=== PATIENT | female | born 1990 | race Caucasian/White ===

== ENCOUNTER 2016-11-13 00:47 | Emergency (ER) | payer OTHER ==
[2016-11-13] MEDS ORDERED: Pepcid 20 MG VIAL IV ONE ×2 (01:02→01:17)
[2016-11-13] MEDS ORDERED: Sodium Chloride 0.9% 1000 ML 1,000 ML IV STA (01:02)
[2016-11-13] MEDS ORDERED: Zofran 4 MG/2 ML VIAL IV ONE (01:02)
[2016-11-13] MEDS ORDERED: Zofran 4 MG/2 ML VIAL ONE (01:16)
[2016-11-13] MEDS ORDERED: Sodium Chloride 0.9% 1000 ML 1,000 ML ONE (01:17)
[2016-11-13 01:21] LABS: BASOPHIL % 0.3 % (0.0-0.4); Eosinophil % 1.8 % (0.00-5.0); Granulocytes % 55.5 % (36.0-66.0); Lymphocytes % 33.1 % (24.0-44.0); Mean Corpuscular Hemoglobin 31.6 pg (26-32); Mean Platelet Volume 11.3 fl (6-9.5); Monocytes % 9.3 % (0.0-12.0); Platelet Count 216 K/mm3 (150-450); Red Blood Count 4.14 M/mm3 (4.1-5.4); White Blood Count 7.2 K/mm3 (4.0-10.5)
[2016-11-13 01:34] LABS: Collection Type CLEAN CATCH
[2016-11-13 01:35] LABS: Bacteria MODERATE /HPF (NEGATIVE); COMPLETE URINE MICROSCOPIC? YES; Epithelial Cells MANY /HPF (FEW); Mucus SLIGHT /HPF (NEGATIVE); Ph 5.5 (5-6)
--- NOTE | 2016-11-13 01:39 | ERPHSYRPT ---
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 Sts nausea. Denies diarrhea. Denies sick contacts. Sts 6 weeks , . LMP 10/05/16. OB: Dr. Janes Amos. Denies bleeding, cramping, vaginal discharge. Denies urinary symptoms. Sts pain is across top of abd, worst in epigastrium. Pt rates pain 9/10. Triage Nursing Assessment: Pt alert, oriented, answers all questions appropriately. Skin p/w/d, resps non-labored. Pt ambulatory to tx room, steady gait noted. Pt holding abd. Mucous membranes moist. Physician History: 26 year old 6 weekpreg now with pain and vomiting, no bleeding or disacharge; abd is tender in epigastrium only; Timing/Duration: today, sudden Activities at Onset: none Quality: sharpness, stabbing Abdominal Pain Onset Location: epigastric Pain Radiation: no radiation Severity of Pain-Max: moderate Severity of Pain-Current: moderate Modifying Factors: Improves With: nothing Associated Symptoms: nausea Previous symptoms: no prior history Allergies/Adverse Reactions: No Known Drug Allergies Allergy (Verified 11/13/16 00:57) Hx Tetanus, Diphtheria Vaccination/Date Given: Yes Hx Influenza Vaccination/Date Given: Yes Hx Pneumococcal Vaccination/Date Given: No - Review of Systems Constitutional: No Fever, No Chills Eyes: No Symptoms Ears, Nose, & Throat: No Symptoms Respiratory: No Cough, No Dyspnea Cardiac: No Chest Pain, No Edema, No Syncope Abdominal/Gastrointestinal: Abdominal Pain, Nausea, Vomiting, No Diarrhea Genitourinary Symptoms: No Dysuria Musculoskeletal: Back Pain, No Neck Pain Skin: No Rash Neurological: No Dizziness, No Focal Weakness, No Sensory Changes Psychological: No Symptoms Endocrine: No Symptoms All Other Systems: Reviewed and Negative - Past Medical History Pertinent Past Medical History: No Neurological History: No Pertinent History ENT History: No Pertinent History Cardiac History: No Pertinent History Respiratory History: No Pertinent History Endocrine Medical History: No Pertinent History Musculoskeletal History: No Pertinent History GI Medical History: No Pertinent History History: No Pertinent History Psycho-Social History: No Pertinent History Female Reproductive Disorders: No Pertinent History Other Medical History: MONO - Past Surgical History Past Surgical History: No Neuro Surgical History: No Pertinent History Cardiac: No Pertinent History Respiratory: No Pertinent History Gastrointestinal: No Pertinent History Genitourinary: No Pertinent History Musculoskeletal: No Pertinent History Female Surgical History: No Pertinent History - Social History Smoking Status: Never smoker Exposure to second hand smoke: No Drug Use: none Patient Lives Alone: No - Female History Hx Last Menstrual Period: 10/05/16 Hx Now: Yes - Nursing Vital Signs Nursing Vital Signs: Initial Vital Signs Temperature 98.6 F Temperature Source Oral Pulse Rate 83 Respiratory Rate 16 Blood Pressure 117/67 Pain Intensity 9 - Physical Exam General Appearance: mild distress, alert Eye Exam: PERRL/EOMI, eyes nml inspection Ears, Nose, Throat Exam: normal ENT inspection, pharynx normal, moist mucous membranes Neck Exam: normal inspection, non-tender, supple, full range of motion Respiratory Exam: normal breath sounds, lungs clear, No respiratory distress Cardiovascular Exam: regular rate/rhythm, normal heart sounds Gastrointestinal/Abdomen Exam: soft, tenderness, No mass Pelvic Exam: deferred Rectal Exam: deferred Back Exam: normal inspection, normal range of motion, No CVA tenderness, No vertebral tenderness Extremity Exam: normal inspection, normal range of motion, pelvis stable Neurologic Exam: alert, oriented x 3, cooperative, normal mood/affect, nml cerebellar function, sensation nml, No motor deficits Skin Exam: normal color, warm, dry SpO2 Interpretation: normal SpO2: 97 Oxygen Delivery: Room Air - Course Nursing assessment & vital signs reviewed: Yes - Radiology Ultrasound Exam OB Ultrasound: negative, IUP, Other (no free fluid, normal kidneys and GB no sign of pathology) Ordered Tests: Active Orders 24 hr Category Date Time Status Clean Catch Urine Specimen STAT Care 11/13/16 01:02 Active IV Insertion STAT Care 11/13/16 01:02 Active NPO (ED) STAT Care 11/13/16 01:02 Active OB TRANSVAGINAL [US] Stat Exams 11/13/16 01:04 Taken UPPER ABDOMEN [US] Stat Exams 11/13/16 01:04 Taken AMYLASE Stat Lab 11/13/16 01:15 Completed CBC W DIFF Stat Lab 11/13/16 01:15 Completed CMP Stat Lab 11/13/16 01:15 Completed HCG, Quantitative (Inhouse) Stat Lab 11/13/16 01:15 Completed LIPASE Stat Lab 11/13/16 01:15 Completed Lactic Acid Urgent Lab 11/13/16 01:12 Completed UA W/ MICROSCOPIC Stat Lab 11/13/16 01:15 Completed Medication Summary Discontinued Medications Generic Name Dose Route Start Last Admin Trade Name Warren PRN Reason Stop Dose Admin Famotidine 20 mg 11/13/16 01:02 11/13/16 01:18 Pepcid 20 Mg Vial IV 11/13/16 01:03 20 mg STAT ONE Administration Famotidine Confirm 11/13/16 01:17 Pepcid 20 Mg Vial Administered 11/13/16 01:18 Dose 20 mg IV .STK-MED ONE Sodium Chloride 1,000 mls @ 999 mls/hr 11/13/16 01:02 11/13/16 01:18 Sodium Chloride 0.9% 1000 Ml IV 11/13/16 02:02 999 mls/hr .Q1H1M STA Administration Sodium Chloride Confirm 11/13/16 01:17 Sodium Chloride 0.9% 1000 Ml Administered 11/13/16 01:18 Dose 1,000 mls @ ud .ROUTE .STK-MED ONE Ceftriaxone Sodium/Dextrose 50 mls @ 100 mls/hr 11/13/16 01:43 11/13/16 01:52 Rocephin 1 Gm-D5w 50 Ml Bag IV 11/13/16 02:12 100 mls/hr STAT ONE Administration Ceftriaxone Sodium/Dextrose Confirm 11/13/16 01:49 Rocephin 1 Gm-D5w 50 Ml Bag Administered 11/13/16 01:50 Dose 50 mls @ ud IV .STK-MED ONE Ondansetron HCl 4 mg 11/13/16 01:02 11/13/16 01:18 Zofran 4 Mg/2 Ml Vial IV 11/13/16 01:03 4 mg STAT ONE Administration Ondansetron HCl Confirm 11/13/16 01:16 Zofran 4 Mg/2 Ml Vial Administered 11/13/16 01:17 Dose 4 mg .ROUTE .STK-MED ONE Lab/Rad Data: Laboratory Result Diagrams 11/13/16 01:15 11/13/16 01:15 Laboratory Results 11/13/16 11/13/16 11/13/16 Range/Units 01:15 01:15 01:15 WBC 7.2 (4.0-10.5) K/mm3 RBC 4.14 (4.1-5.4) M/mm3 Hgb 13.1 (12.0-16.0) gm/dl Hct 38.5 (35-47) % MCV 93.0 (78-100) fl MCH 31.6 (26-32) pg MCHC 34.0 (32-36) g/dl RDW 12.0 (11.5-14.0) % Plt Count 216 (150-450) K/mm3 MPV 11.3 H (6-9.5) fl Gran % 55.5 (36.0-66.0) % Lymphocytes % 33.1 (24.0-44.0) % Monocytes % 9.3 (0.0-12.0) % Eosinophils % 1.8 (0.00-5.0) % Basophils % 0.3 (0.0-0.4) % Basophils # 0.02 (0-0.4) Sodium 139 (136-145) mEq/L Potassium 4.0 (3.5-5.1) mEq/L Chloride 103 (98-107) mEq/L Carbon Dioxide 23.9 (21-32) mEq/L Anion Gap 15.6 H (5-15) MEQ/L BUN 12 (9-20) mg/dL Creatinine 0.60 (0.55-1.30) mg/dl Estimated GFR > 60 ML/MIN Glucose 89 (70-110) MG/DL Lactic Acid (0.4-2.0) Calcium 8.5 (8.5-10.1) mg/dL Total Bilirubin 0.2 (0.2-1.0) mg/dL AST 21 (15-37) U/L ALT 15 (12-78) U/L Alkaline Phosphatase 65 (46-116) U/L Serum Total Protein 6.6 (6.4-8.2) gm/dL Albumin 3.6 (3.4-5.0) g/dL Amylase 52 (25-115) U/L Lipase 246 (73-393) U/L Beta HCG, Quant 31248 H (0-6) IU/L Ur Collection Type CLEAN CATCH Urine Color YELLOW (YELLOW) Urine Appearance SLIGHTLY CLOUDY (CLEAR) Urine pH 5.5 (5-6) Ur Specific [place] 1.025 (1.005-1.025) Urine Protein NEGATIVE (Negative) Urine Glucose (UA) NEGATIVE (NEGATIVE) mg/dL Urine Ketones NEGATIVE (NEGATIVE) Urine Nitrite NEGATIVE (NEGATIVE) Urine Bilirubin NEGATIVE (NEGATIVE) Urine Urobilinogen 0.2 (0-1) mg/dL Urine WBC (Auto) TRACE (NEGATIVE) Urine RBC (Auto) NEGATIVE (0-5) Dennis/ul Urine Microscopic RBC 2-5 (0-2) /HPF Urine Microscopic WBC 5-10 (0-5) /HPF Ur Epithelial Cells MANY (FEW) /HPF Urine Bacteria MODERATE (NEGATIVE) /HPF Urine Mucus SLIGHT (NEGATIVE) /HPF Specimen Received 11/13/16 0110 11/13/16 Range/Units 01:12 WBC (4.0-10.5) K/mm3 RBC (4.1-5.4) M/mm3 Hgb (12.0-16.0) gm/dl Hct (35-47) % MCV (78-100) fl MCH (26-32) pg MCHC (32-36) g/dl RDW (11.5-14.0) % Plt Count (150-450) K/mm3 MPV (6-9.5) fl Gran % (36.0-66.0) % Lymphocytes % (24.0-44.0) % Monocytes % (0.0-12.0) % Eosinophils % (0.00-5.0) % Basophils % (0.0-0.4) % Basophils # (0-0.4) Sodium (136-145) mEq/L Potassium (3.5-5.1) mEq/L Chloride (98-107) mEq/L Carbon Dioxide (21-32) mEq/L Anion Gap (5-15) MEQ/L BUN (9-20) mg/dL Creatinine (0.55-1.30) mg/dl Estimated GFR ML/MIN Glucose (70-110) MG/DL Lactic Acid 0.8 (0.4-2.0) Calcium (8.5-10.1) mg/dL Total Bilirubin (0.2-1.0) mg/dL AST (15-37) U/L ALT (12-78) U/L Alkaline Phosphatase (46-116) U/L Serum Total Protein (6.4-8.2) gm/dL Albumin (3.4-5.0) g/dL Amylase (25-115) U/L Lipase (73-393) U/L Beta HCG, Quant (0-6) IU/L Ur Collection Type Urine Color (YELLOW) Urine Appearance (CLEAR) Urine pH (5-6) Ur Specific [place] (1.005-1.025) Urine Protein (Negative) Urine Glucose (UA) (NEGATIVE) mg/dL Urine Ketones (NEGATIVE) Urine Nitrite (NEGATIVE) Urine Bilirubin (NEGATIVE) Urine Urobilinogen (0-1) mg/dL Urine WBC (Auto) (NEGATIVE) Urine RBC (Auto) (0-5) Dennis/ul Urine Microscopic RBC (0-2) /HPF Urine Microscopic WBC (0-5) /HPF Ur Epithelial Cells (FEW) /HPF Urine Bacteria (NEGATIVE) /HPF Urine Mucus (NEGATIVE) /HPF Specimen Received - Progress Progress: improved, re-examined Progress Note: 11/13/16 03:05 pt pain has improved and now she feels comfortable to go home and f/u OB; discussede limitations of testing performed and that we do not know for certain that dyspepsia and preg emesis are the cause of symptoms but the evidence points to these. SHe will F/U OB and return meantime if symptoms return. 11/13/16 03:07 discussed risk/benefit of zantac and pepcid , keflex and antinausea med and she is comfortable with these. Counseled pt/family regarding: lab results, diagnosis, need for follow-up, rad results - Departure Time of Disposition: 03:07 Departure Disposition: Home Clinical Impression: Hyperemesis gravidarum, dyspepsia in , UTI (urinary tract infection) during Condition: Good Critical Care Time: No Referrals: CHRISTIAN PACE [Primary Care Provider] - Instructions: Hyperemesis Gravidarum, Abdominal Pain-Adult, Urinary Tract Infection (UTI), Dyspepsia Additional Instructions: ALthough we have not found the precise cause for your pain and vomiting, the symptoms and findings do point to dyspesia and vomiting of which are common causes. In addition there is a urinary infection which should be treated. You can take either OTC Pepcid or Zantac also and we will give you a nausea medication used in . You should see your OB this week since undetected problems may be evolving and require workup or treatment, and return meantime if symptoms recur or other concerns. Prescriptions: Cephalexin Mh 500 mg [Keflex 500 mg] 500 mg PO TID #30 capsule Doxylamine/Pyridoxine HCl [Addi Escoto 10-10 mg Tablet] 2 each PO HS #30 tablet.
[2016-11-13] MEDS ORDERED: ROCEPHIN 1 Gm-D5w 50 ml Bag** 50 ML IV ONE ×2 (01:43→01:49)
[2016-11-13 02:03] LABS: ALBUMIN 3.6 g/dL (3.4-5.0); ALKALINE PHOSPHATASE 65 U/L (46-116); ANION GAP 15.6 MEQ/L (5-15); BILIRUBIN,TOTAL 0.2 mg/dL (0.2-1.0); BLOOD UREA NITROGEN 12 mg/dL (9-20); CHLORIDE 103 mEq/L (98-107); Carbon Dioxide 23.9 mEq/L (21-32); Glucose 89 MG/DL (70-110); HCG, Quantitative (Inhouse) 27410 IU/L (0-6); LIPASE 246 U/L (73-393); SGOT/AST 21 U/L (15-37); SGPT/ALT 15 U/L (12-78); SODIUM 139 mEq/L (136-145); Total Protein 6.6 gm/dL (6.4-8.2)
[2016-11-13 03:47] VITALS: BP 111/68; PULSE 88; O2SAT 96
--- NOTE | 2016-11-13 09:18 | XRAY ---
Indication: Pain. Two-dimensional transvaginal pelvic sonogram performed. Comparison: None Uterus is retroverted with a single intrauterine gestational sac. Mean sac diameter is 1.23 cm corresponding to 5 weeks 2 days. Yolk sac present but no pole or heart tones. Left ovary measures 3.4 x 2.4 x 3.1 cm and the left measures 1.7 x 1.2 x 2.5 cm. Normal color perfusion bilaterally. 1.7 cm right ovary corpus luteal cyst. No suspicious adnexal mass or free fluid. Impression: Single intrauterine gestational sac without pole/heart tones measuring 5 weeks 2 days. Correlate with serial beta hCG and follow-up sonogram regarding viability. Comment: Preliminary report was given.
--- NOTE | 2016-11-13 09:21 | XRAY ---
Indication: Pain. Two-dimensional abdominal sonogram performed. Comparison: None Visualized portions of the liver, pancreas, and spleen homogeneous in echogenicity. Gallbladder normally distended without gallstones, wall thickening, or pericholecystic fluid. Common bile duct measures 3 mm. No ascites. Right kidney measures 10.9 x 3.8 x 4.0 cm and the left measures 11.9 x 3.9 x 4.7 cm. No suspicious renal mass, hydronephrosis, or perinephric fluid. Aorta and IVC unremarkable. Impression: Negative abdominal sonogram. Comment: Preliminary report was given.
== END 2016-11-13 03:48 | disposition home or self-care (01) ==
LOC: ED 00:47
DX: O21.0 Mild hyperemesis gravidarum (principal); R10.13 Epigastric pain; R39.9 Unspecified symptoms and signs involving the genitourinary system
CPT/HCPCS: 36000; 36415; 76700; 76815; 76817; 80053; 81000; 82150; 83605; 83690; 84702; 85025; 96360; 96365; 96374; 96375; 99283; J0696; J2405

== ENCOUNTER 2017-03-31 14:25 | Observation (INO) | payer OTHER ==
[2017-03-31 15:08] VITALS: BP 110/68; PULSE 86
[2017-03-31 15:18] LABS: Collection Type VOID
[2017-03-31 15:19] LABS: COMPLETE URINE MICROSCOPIC? YES
[2017-03-31 15:32] LABS: Bacteria MANY /HPF (NEGATIVE); Epithelial Cells MANY /HPF (FEW)
== END 2017-03-31 16:25 | disposition home or self-care (01) ==
LOC: OB 14:25
PROVIDERS: ADMIT Family Medicine; ATTEND Family Medicine
DX: Z34.83 Encounter for supervision of other normal pregnancy, third trimester (principal)
CPT/HCPCS: 80307; 81000; G0378

== ENCOUNTER 2017-05-15 10:14 | Observation (INO) | payer OTHER ==
--- NOTE | 2017-05-15 13:25 | XRAY ---
Indication: well-being. Ultrasound biophysical profile study was performed. Comparison: None There is a single viable intrauterine with heart rate 129 bpm. 4 quadrant DIANA is 16.1 cm. Largest amniotic pocket is 6 cm. 2 points given for breathing, movements, tone, and qualitative amniotic fluid volume. Impression: Total biophysical profile score is 8 out of 8.
[2017-05-15 14:49] VITALS: BP 114/75; PULSE 92; O2SAT 97
== END 2017-05-15 14:05 | disposition home or self-care (01) ==
LOC: OB 10:14
PROVIDERS: ADMIT Family Medicine; ATTEND Family Medicine
DX: Z34.83 Encounter for supervision of other normal pregnancy, third trimester (principal)
CPT/HCPCS: 59025; 76819; 80307; G0378

== ENCOUNTER 2017-09-17 01:41 | Emergency (ER) | payer OTHER ==
[2017-09-17] MEDS ORDERED: Phenergan 25 MG INJ IV ONE (01:55)
[2017-09-17] MEDS ORDERED: Sodium Chloride 0.9% 1000 ML 1,000 ML IV STA (01:55)
[2017-09-17] MEDS ORDERED: ROCEPHIN 1 Gm-D5w 50 ml Bag** 1 G/50 ML IVPB IV STA (01:56)
[2017-09-17] MEDS ORDERED: Sodium Chloride 0.9% 1000 ML 1,000 ML ONE (02:02)
[2017-09-17] MEDS ORDERED: Phenergan 25 MG INJ ONE (02:02)
[2017-09-17] MEDS ORDERED: ROCEPHIN 1 Gm-D5w 50 ml Bag** 1 G/50 ML IVPB IV ONE (02:02)
--- NOTE | 2017-09-17 02:02 | ERPHSYRPT ---
- History of Present Illness Time Seen by Provider: 09/17/17 01:45 Historian: patient Exam Limitations: no limitations Physician History: FOR THE PAST 9 DAYS PT HAS HAD NAUSEA AND FELT TIRED. PT VOMITED X5 9 DAYS AGO WITHOUT BLOOD. FOR THE PAST 3 DAYS HAS HAD VOMITING X10, DIARRHEA X6, DIAPHORESIS, CHILLS AND A SORE THROAT; FOR THE PAST 2 DAYS HEADACHE AND EARACHES. Allergies/Adverse Reactions: No Known Drug Allergies Allergy (Verified 05/15/17 10:48) Home Medications: Vits W-Ca,Fe,FA(<1Mg) [] 1 tab PO DAILY 03/31/17 [History] Hx Tetanus, Diphtheria Vaccination/Date Given: Yes Hx Influenza Vaccination/Date Given: Yes Hx Pneumococcal Vaccination/Date Given: No - Review of Systems Constitutional: Fatigue Ears, Nose, & Throat: Ear Pain, Throat Pain Abdominal/Gastrointestinal: Nausea, Vomiting, Diarrhea Neurological: Headache All Other Systems: Reviewed and Negative - Past Medical History Pertinent Past Medical History: No Neurological History: No Pertinent History ENT History: No Pertinent History Cardiac History: No Pertinent History Respiratory History: No Pertinent History Endocrine Medical History: No Pertinent History Musculoskeletal History: No Pertinent History GI Medical History: No Pertinent History History: No Pertinent History Psycho-Social History: No Pertinent History Female Reproductive Disorders: No Pertinent History Other Medical History: MONO - Past Surgical History Past Surgical History: No Neuro Surgical History: No Pertinent History Cardiac: No Pertinent History Respiratory: No Pertinent History Gastrointestinal: No Pertinent History Genitourinary: No Pertinent History Musculoskeletal: No Pertinent History Female Surgical History: No Pertinent History - Social History Smoking Status: Never smoker Exposure to second hand smoke: No Drug Use: none Patient Lives Alone: No - Female History Hx Now: Yes - Nursing Vital Signs Nursing Vital Signs: Initial Vital Signs Temperature 97.6 F 09/17/17 01:47 Pulse Rate 94 H 09/17/17 01:47 Blood Pressure 134/82 09/17/17 01:47 O2 Sat by Pulse Oximetry 94 L 09/17/17 01:47 Pain Scale Pain Intensity 0 - Physical Exam General Appearance: alert Eye Exam: PERRL/EOMI Ears, Nose, Throat Exam: moist mucous membranes, TM abnormal (L) (LEFT TM ERYTHEMATOUS), pharyngeal erythema Neck Exam: normal inspection Respiratory Exam: lungs clear Cardiovascular Exam: normal heart sounds Gastrointestinal/Abdomen Exam: soft, other (B.S. MILDLY HYPERACTIVE AND NORMOTONIC) Back Exam: normal range of motion Extremity Exam: normal inspection, No pedal edema Neurologic Exam: alert, cooperative, normal mood/affect Skin Exam: warm, dry - Course Nursing assessment & vital signs reviewed: Yes Ordered Tests: Active Orders 24 hr Category Date Time Status IV Insertion STAT Care 09/17/17 01:55 Active AMYLASE Stat Lab 09/17/17 02:00 Completed CBC W DIFF Stat Lab 09/17/17 02:00 Completed CMP Stat Lab 09/17/17 02:00 Completed CULTURE, THROAT Stat Lab 09/17/17 02:30 Received LIPASE Stat Lab 09/17/17 02:00 Completed MAG [MAGNESIUM] Stat Lab 09/17/17 02:00 Completed [place] Screen Stat Lab 09/17/17 02:00 Completed STREP SCREEN-BETA A Stat Lab 09/17/17 02:30 Completed UA W/ MICROSCOPIC Stat Lab 09/17/17 02:00 Completed Medication Summary Discontinued Medications Generic Name Dose Route Start Last Admin Trade Name Freq PRN Reason Stop Dose Admin Ceftriaxone Sodium/Dextrose 1 g in 50 mls @ 100 mls/hr 09/17/17 01:56 02:21 Rocephin 1 Gm-D5w 50 Ml Bag IV 09/17/17 02:25 100 mls/hr STAT STA Administration Sodium Chloride 1,000 mls @ 999 mls/hr 09/17/17 01:55 09/17/17 02:21 Sodium Chloride 0.9% 1000 Ml IV 09/17/17 02:55 999 mls/hr .Q1H1M STA Administration Sodium Chloride Confirm 09/17/17 02:02 Sodium Chloride 0.9% 1000 Ml Administered 09/17/17 02:03 Dose 1,000 mls @ ud .ROUTE .STK-MED ONE Ceftriaxone Sodium/Dextrose Confirm 09/17/17 02:02 Rocephin 1 Gm-D5w 50 Ml Bag Administered 09/17/17 02:03 Dose 1 g in 50 mls @ ud IV .STK-MED ONE Magnesium Sulfate/Dextrose 100 mls @ 200 mls/hr 09/17/17 03:08 09/17/17 03:13 Magnesium 1 Gm / 100 Ml D5w IV 09/17/17 03:37 200 mls/hr STAT ONE Administration Magnesium Sulfate/Dextrose Confirm 09/17/17 03:10 Magnesium 1 Gm / 100 Ml D5w Administered 09/17/17 03:11 Dose 100 mls @ ud IV .STK-MED ONE Promethazine HCl 12.5 mg 09/17/17 01:55 09/17/17 02:21 Phenergan 25 Mg Inj IV 09/17/17 01:56 12.5 mg STAT ONE Administration Promethazine HCl Confirm 09/17/17 02:02 Phenergan 25 Mg Inj Administered 09/17/17 02:03 Dose 25 mg .ROUTE .STK-MED ONE Lab/Rad Data: Laboratory Result Diagrams 09/17/17 02:00 09/17/17 02:00 Laboratory Results 09/17/17 09/17/17 09/17/17 Range/Units 02:30 02:30 02:00 WBC (4.0-10.5) K/mm3 RBC (4.1-5.4) M/mm3 Hgb (12.0-16.0) gm/dl Hct (35-47) % MCV (78-100) fl MCH (26-32) pg MCHC (32-36) g/dl RDW (11.5-14.0) % Plt Count (150-450) K/mm3 MPV (6-9.5) fl Gran % (36.0-66.0) % Lymphocytes % (24.0-44.0) % Monocytes % (0.0-12.0) % Eosinophils % (0.00-5.0) % Basophils % (0.0-0.4) % Basophils # (0-0.4) Sodium (136-145) mEq/L Potassium (3.5-5.1) mEq/L Chloride (98-107) mEq/L Carbon Dioxide (21-32) mEq/L Anion Gap (5-15) MEQ/L BUN (9-20) mg/dL Creatinine (0.55-1.30) mg/dl Estimated GFR ML/MIN Glucose (70-110) MG/DL Calcium (8.5-10.1) mg/dL Magnesium (1.8-2.4) mg/dL Total Bilirubin (0.2-1.0) mg/dL AST (15-37) U/L ALT (12-78) U/L Alkaline Phosphatase (46-116) U/L Serum Total Protein (6.4-8.2) gm/dL Albumin (3.4-5.0) g/dL Amylase (25-115) U/L Lipase (73-393) U/L Ur Collection Type Urine Color (YELLOW) Urine Appearance (CLEAR) Urine pH (5-6) Ur Specific [place] (1.005-1.025) Urine Protein (Negative) Urine Ketones (NEGATIVE) Urine Blood (0-5) Dennis/ul Urine Nitrite (NEGATIVE) Urine Bilirubin (NEGATIVE) Urine Urobilinogen (0-1) mg/dL Ur Leukocyte Esterase (NEGATIVE) Urine Microscopic WBC (0-5) /HPF Ur Epithelial Cells (FEW) /HPF Urine Bacteria (NEGATIVE) /HPF Urine Culture Reflexed (NO) Urine Glucose (NEGATIVE) mg/dL Monoscreen NEGATIVE (Negative) Influenza Type A Ag NEGATIVE (NEGATIVE) Influenza Type B Ag NEGATIVE (NEGATIVE) RSV (PCR) NEGATIVE (Negative) Streptococcus Screen NEGATIVE (Negative) Specimen Received 09/17/17 09/17/17 09/17/17 Range/Units 02:00 02:00 02:00 WBC 9.3 (4.0-10.5) K/mm3 RBC 4.23 (4.1-5.4) M/mm3 Hgb 13.1 (12.0-16.0) gm/dl Hct 39.9 (35-47) % MCV 94.3 (78-100) fl MCH 31.0 (26-32) pg MCHC 32.8 (32-36) g/dl RDW 12.4 (11.5-14.0) % Plt Count 196 (150-450) K/mm3 MPV 11.3 H (6-9.5) fl Gran % 79.7 H (36.0-66.0) % Lymphocytes % 12.5 L (24.0-44.0) % Monocytes % 6.5 (0.0-12.0) % Eosinophils % 1.1 (0.00-5.0) % Basophils % 0.2 (0.0-0.4) % Basophils # 0.02 (0-0.4) Sodium 142 (136-145) mEq/L Potassium 3.5 (3.5-5.1) mEq/L Chloride 106 (98-107) mEq/L Carbon Dioxide 25.8 (21-32) mEq/L Anion Gap 13.9 (5-15) MEQ/L BUN 16 (9-20) mg/dL Creatinine 0.96 (0.55-1.30) mg/dl Estimated GFR > 60 ML/MIN Glucose 101 (70-110) MG/DL Calcium 8.8 (8.5-10.1) mg/dL Magnesium 1.7 L (1.8-2.4) mg/dL Total Bilirubin 0.30 (0.2-1.0) mg/dL AST 75 H (15-37) U/L ALT 139 H (12-78) U/L Alkaline Phosphatase 96 (46-116) U/L Serum Total Protein 7.3 (6.4-8.2) gm/dL Albumin 3.8 (3.4-5.0) g/dL Amylase 52 (25-115) U/L Lipase 229 (73-393) U/L Ur Collection Type CLEAN CATCH Urine Color YELLOW (YELLOW) Urine Appearance CLEAR (CLEAR) Urine pH 6.0 (5-6) Ur Specific [place] 1.020 (1.005-1.025) Urine Protein NEGATIVE (Negative) Urine Ketones NEGATIVE (NEGATIVE) Urine Blood NEGATIVE (0-5) Dennis/ul Urine Nitrite NEGATIVE (NEGATIVE) Urine Bilirubin NEGATIVE (NEGATIVE) Urine Urobilinogen NORMAL (0-1) mg/dL Ur Leukocyte Esterase 1+ (NEGATIVE) Urine Microscopic WBC 0-2 (0-5) /HPF Ur Epithelial Cells FEW (FEW) /HPF Urine Bacteria RARE (NEGATIVE) /HPF Urine Culture Reflexed NO (NO) Urine Glucose NEGATIVE (NEGATIVE) mg/dL Monoscreen (Negative) Influenza Type A Ag (NEGATIVE) Influenza Type B Ag (NEGATIVE) RSV (PCR) (Negative) Streptococcus Screen (Negative) Specimen Received 09/17/17 0200 - Departure Time of Disposition: 03:46 Departure Disposition: Home Clinical Impression: LOM, PHARYNGITIS, VOMITING, DIARRHEA, MILD HYPOMAGNESEMIA Condition: Stable Critical Care Time: No Referrals: REYMUNDO JONES [Primary Care Provider] - Instructions: Diarrhea and Traveler's Diarrhea -- Adult, Vomiting -- Adult Additional Instructions: FOLLOW UP WITH PRIVATE DOCTOR TOMORROW. CONTINUE KEFLEX. Prescriptions: Promethazine HCl 25 mg [Phenergan 25 mg] 25 mg PO Q4H PRN PRN #14 tablet PRN Reason: Nausea/Vomiting
[2017-09-17 02:25] LABS: BASOPHIL % 0.2 % (0.0-0.4); Eosinophil % 1.1 % (0.00-5.0); Granulocytes % 79.7 % (36.0-66.0); Lymphocytes % 12.5 % (24.0-44.0); Mean Cell Volume 94.3 fl (78-100); Mean Platelet Volume 11.3 fl (6-9.5); Monocytes % 6.5 % (0.0-12.0); Platelet Count 196 K/mm3 (150-450); Red Blood Count 4.23 M/mm3 (4.1-5.4); Red Cell Distribution Width 12.4 % (11.5-14.0); White Blood Count 9.3 K/mm3 (4.0-10.5)
[2017-09-17 02:50] LABS: ALBUMIN 3.8 g/dL (3.4-5.0); ALKALINE PHOSPHATASE 96 U/L (46-116); ANION GAP 13.9 MEQ/L (5-15); BLOOD UREA NITROGEN 16 mg/dL (9-20); CHLORIDE 106 mEq/L (98-107); Carbon Dioxide 25.8 mEq/L (21-32); Glucose 101 MG/DL (70-110); LIPASE 229 U/L (73-393); MAGNESIUM 1.7 mg/dL (1.8-2.4); Potassium 3.5 mEq/L (3.5-5.1); SGOT/AST 75 U/L (15-37); SGPT/ALT 139 U/L (12-78); SODIUM 142 mEq/L (136-145); Total Protein 7.3 gm/dL (6.4-8.2)
[2017-09-17 03:03] LABS: ADD URINE CULTURE? NO (NO); Bacteria RARE /HPF (NEGATIVE); Bilirubin NEGATIVE (NEGATIVE); Blood NEGATIVE Ery/ul (0-5); COMPLETE URINE MICROSCOPIC? YES; Collection Type CLEAN CATCH; Epithelial Cells FEW /HPF (FEW); Glucose NEGATIVE (NEGATIVE); Leukocyte Esterase 1+ (NEGATIVE); WBC 0-2 /HPF (0-5)
[2017-09-17] MEDS ORDERED: Magnesium 1 Gm / 100 Ml D5W*** 100 ML IV ONE ×2 (03:08→03:10)
[2017-09-17 03:54] VITALS: BP 111/68; PULSE 84; O2SAT 99
== END 2017-09-17 03:58 | disposition home or self-care (01) ==
LOC: ED 01:41
DX: H66.92 Otitis media, unspecified, left ear (principal); J02.9 Acute pharyngitis, unspecified; R11.2 Nausea with vomiting, unspecified; R11.10 Vomiting, unspecified; R19.7 Diarrhea, unspecified; E83.42 Hypomagnesemia
CPT/HCPCS: 36000; 36415; 80053; 81000; 82150; 83690; 83735; 85025; 86308; 87070; 87430; 87631; 96360; 96365; 96367; 96374; 99284; J0696; J2550; J3475

== ENCOUNTER 2018-06-07 14:38 | Emergency (ER) | payer BC ==
[2018-06-07 15:28] VITALS: BP 131/86; PULSE 96; O2SAT 97
--- NOTE | 2018-06-07 15:50 | ERPHSYRPT ---
- History of Present Illness Time Seen by Provider: 06/07/18 15:44 Historian: patient Exam Limitations: no limitations Patient Subjective Stated Complaint: 5 weeks , spotting and lower abd cramping for four days. Triage Nursing Assessment: ambulated to room per self. skin w/d, color normal, resp easy. abd soft. Physician History: The patient is a 28-year-old female at 5 weeks complaining of pelvic cramping for 4 days and mild vaginal bleeding for one day. Her last missed her period was May 04. She has been taking vitamins but has not seen an OB doctor yet. She called her previous OB doctor who requested that she be seen in the nearest ER because they could not work her in today. She is taking vitamins. She denies nausea or vomiting. Timing/Duration: day(s) (4), gradual onset Activities at Onset: none Quality: cramping Abdominal Pain Onset Location: RLQ, LLQ Pain Radiation: no radiation Severity of Pain-Max: mild Severity of Pain-Current: mild Modifying Factors: Improves With: nothing Associated Symptoms: other (vaginal bleeding) Previous symptoms: no prior history Allergies/Adverse Reactions: No Known Drug Allergies Allergy (Verified 06/07/18 15:28) Home Medications: Vits W-Ca,Fe,FA(<1Mg) [] 1 tab PO DAILY 03/31/17 [History] Hx Tetanus, Diphtheria Vaccination/Date Given: No Hx Influenza Vaccination/Date Given: No Hx Pneumococcal Vaccination/Date Given: No - Review of Systems Constitutional: No Fever, No Chills Eyes: No Symptoms Ears, Nose, & Throat: No Symptoms Respiratory: No Cough, No Dyspnea Cardiac: No Chest Pain, No Edema, No Syncope Abdominal/Gastrointestinal: Other (pelvic cramping) Genitourinary Symptoms: Vaginal Bleeding Musculoskeletal: No Back Pain, No Neck Pain Skin: No Rash Neurological: No Dizziness, No Focal Weakness, No Sensory Changes Psychological: No Symptoms Endocrine: No Symptoms Hematologic/Lymphatic: No Symptoms Immunological/Allergic: No Symptoms All Other Systems: Reviewed and Negative - Past Medical History Pertinent Past Medical History: No Neurological History: No Pertinent History ENT History: No Pertinent History Cardiac History: No Pertinent History Respiratory History: No Pertinent History Endocrine Medical History: No Pertinent History Musculoskeletal History: No Pertinent History GI Medical History: No Pertinent History History: No Pertinent History Psycho-Social History: No Pertinent History Female Reproductive Disorders: No Pertinent History Other Medical History: MONO - Past Surgical History Past Surgical History: No Neuro Surgical History: No Pertinent History Cardiac: No Pertinent History Respiratory: No Pertinent History Gastrointestinal: No Pertinent History Genitourinary: No Pertinent History Musculoskeletal: No Pertinent History Female Surgical History: No Pertinent History - Social History Smoking Status: Never smoker Exposure to second hand smoke: No Drug Use: none Patient Lives Alone: No - Female History Hx Last Menstrual Period: 05/04/18 Hx Now: Yes (5 weeks) - Nursing Vital Signs Nursing Vital Signs: Initial Vital Signs Temperature 98.8 F 06/07/18 15:01 Pulse Rate 96 H 06/07/18 15:01 Respiratory Rate 16 06/07/18 15:01 Blood Pressure 131/86 06/07/18 15:01 O2 Sat by Pulse Oximetry 97 06/07/18 15:01 Pain Scale Pain Intensity 7 - Physical Exam General Appearance: no apparent distress, alert Eye Exam: PERRL/EOMI, eyes nml inspection Ears, Nose, Throat Exam: normal ENT inspection, pharynx normal, moist mucous membranes Neck Exam: normal inspection, non-tender, supple, full range of motion Respiratory Exam: normal breath sounds, lungs clear, No respiratory distress Cardiovascular Exam: regular rate/rhythm, normal heart sounds Gastrointestinal/Abdomen Exam: tenderness (RLQ), No guarding Pelvic Exam: not done Rectal Exam: not done Back Exam: normal inspection, normal range of motion, No CVA tenderness, No vertebral tenderness Extremity Exam: normal inspection, normal range of motion, pelvis stable Neurologic Exam: alert, oriented x 3, cooperative, normal mood/affect, nml cerebellar function, sensation nml, No motor deficits Skin Exam: normal color, warm, dry SpO2 Interpretation: normal SpO2: 97 Oxygen Delivery: Room Air - Radiology Ultrasound Exam OB Ultrasound: discussed w/radiologist (per U/S tech), Other (tiny intrauterine gestational sac) Ordered Tests: Active Orders 24 hr Category Date Time Status Clean Catch Urine Specimen STAT Care 06/07/18 15:44 Active OB <14 WKS 1ST GESTATION [US] Stat Exams 06/07/18 15:45 Completed BMP Stat Lab 06/07/18 16:00 Completed CBC W DIFF Stat Lab 06/07/18 16:00 Completed HCG, Quantitative (Inhouse) Stat Lab 06/07/18 16:00 Completed UA W/ MICROSCOPIC Stat Lab 06/07/18 15:30 Completed Lab/Rad Data: Laboratory Result Diagrams 06/07/18 16:00 06/07/18 16:00 Laboratory Results 06/07/18 06/07/18 06/07/18 Range/Units 16:00 16:00 16:00 WBC 6.2 (4.0-10.5) K/mm3 RBC 4.30 (4.1-5.4) M/mm3 Hgb 14.3 (12.0-16.0) gm/dl Hct 41.3 (35-47) % MCV 96.0 (78-100) fl MCH 33.3 H (26-32) pg MCHC 34.6 (32-36) g/dl RDW 11.9 (11.5-14.0) % Plt Count 215 (150-450) K/mm3 MPV 11.2 H (6-9.5) fl Gran % 59.1 (36.0-66.0) % Eos # (Auto) 0.12 (0-0.5) Absolute Lymphs (auto) 1.86 (1.0-4.6) Absolute Monos (auto) 0.55 (0.0-1.3) Lymphocytes % 29.9 (24.0-44.0) % Monocytes % 8.8 (0.0-12.0) % Eosinophils % 1.9 (0.00-5.0) % Basophils % 0.3 (0.0-0.4) % Absolute Granulocytes 3.67 (1.4-6.9) Basophils # 0.02 (0-0.4) Sodium 141 (137-145) mmol/L Potassium 3.9 (3.5-5.1) mmol/L Chloride 104 (98-107) mmol/L Carbon Dioxide 26 (22-30) mmol/L Anion Gap 15.1 H (5-15) MEQ/L BUN 13 (7-17) mg/dL Creatinine 0.60 (0.52-1.04) mg/dL Estimated GFR > 60.0 ML/MIN Glucose 80 (74-106) mg/dL Calcium 9.7 (8.4-10.2) mg/dL Beta HCG, Quant 2207.2 mIU/ml Ur Collection Type Urine Color (YELLOW) Urine Appearance (CLEAR) Urine pH (5-6) Ur Specific [place] (1.005-1.025) Urine Protein (Negative) Urine Ketones (NEGATIVE) Urine Blood (0-5) Dennis/ul Urine Nitrite (NEGATIVE) Urine Bilirubin (NEGATIVE) Urine Urobilinogen (0-1) mg/dL Ur Leukocyte Esterase (NEGATIVE) Urine Microscopic WBC (0-5) /HPF Ur Epithelial Cells (FEW) /HPF Urine Bacteria (NEGATIVE) /HPF Urine Culture Reflexed (NO) Urine Glucose (NEGATIVE) mg/dL Specimen Received 06/07/18 Range/Units 15:30 WBC (4.0-10.5) K/mm3 RBC (4.1-5.4) M/mm3 Hgb (12.0-16.0) gm/dl Hct (35-47) % MCV (78-100) fl MCH (26-32) pg MCHC (32-36) g/dl RDW (11.5-14.0) % Plt Count (150-450) K/mm3 MPV (6-9.5) fl Gran % (36.0-66.0) % Eos # (Auto) (0-0.5) Absolute Lymphs (auto) (1.0-4.6) Absolute Monos (auto) (0.0-1.3) Lymphocytes % (24.0-44.0) % Monocytes % (0.0-12.0) % Eosinophils % (0.00-5.0) % Basophils % (0.0-0.4) % Absolute Granulocytes (1.4-6.9) Basophils # (0-0.4) Sodium (137-145) mmol/L Potassium (3.5-5.1) mmol/L Chloride (98-107) mmol/L Carbon Dioxide (22-30) mmol/L Anion Gap (5-15) MEQ/L BUN (7-17) mg/dL Creatinine (0.52-1.04) mg/dL Estimated GFR ML/MIN Glucose (74-106) mg/dL Calcium (8.4-10.2) mg/dL Beta HCG, Quant mIU/ml Ur Collection Type CCMS Urine Color YELLOW (YELLOW) Urine Appearance CLEAR (CLEAR) Urine pH 6.0 (5-6) Ur Specific [place] 1.015 (1.005-1.025) Urine Protein NEGATIVE (Negative) Urine Ketones NEGATIVE (NEGATIVE) Urine Blood NEGATIVE (0-5) Dennis/ul Urine Nitrite NEGATIVE (NEGATIVE) Urine Bilirubin NEGATIVE (NEGATIVE) Urine Urobilinogen NORMAL (0-1) mg/dL Ur Leukocyte Esterase TRACE (NEGATIVE) Urine Microscopic WBC 2-5 (0-5) /HPF Ur Epithelial Cells MODERATE (FEW) /HPF Urine Bacteria RARE (NEGATIVE) /HPF Urine Culture Reflexed NO (NO) Urine Glucose NEGATIVE (NEGATIVE) mg/dL Specimen Received 06-07-18 1600 - Progress Progress: unchanged Counseled pt/family regarding: lab results, diagnosis, rad results - Departure Time of Disposition: 16:26 Departure Disposition: Home Clinical Impression: Threatened spontaneous Condition: Stable Critical Care Time: No Referrals: REYMUNDO JONES [Primary Care Provider] - Additional Instructions: You have mild pelvic cramping and mild vaginal bleeding. The ultrasound shows a gestational sac within the uterus. Please take Tylenol as needed for discomfort. The quantitative HCG was 2207. Follow-up with your OB doctor later this week or early next week.
[2018-06-07 16:03] LABS: BASOPHIL % 0.3 % (0.0-0.4); Basophil (Absolute #) 0.02 (0-0.4); Eosinophil % 1.9 % (0.00-5.0); Eosinophil (Absolute #) 0.12 (0-0.5); Granulocyte Absolute (ANC) 3.67 (1.4-6.9); Granulocytes % 59.1 % (36.0-66.0); Hematocrit 41.3 % (35-47); Hemoglobin 14.3 gm/dl (12.0-16.0); Lymphocyte (Absolute #) 1.86 (1.0-4.6); Lymphocytes % 29.9 % (24.0-44.0); Mean Corpuscular Hemoglobin 33.3 pg (26-32); Mean Corpuscular Hgb Concent. 34.6 g/dl (32-36); Mean Platelet Volume 11.2 fl (6-9.5); Monocyte (Absolute #) 0.55 (0.0-1.3); Monocytes % 8.8 % (0.0-12.0); Platelet Count 215 K/mm3 (150-450); Red Cell Distribution Width 11.9 % (11.5-14.0); White Blood Count 6.2 K/mm3 (4.0-10.5)
[2018-06-07 16:12] LABS: Appearance CLEAR (CLEAR); Bacteria RARE /HPF (NEGATIVE); Bilirubin NEGATIVE (NEGATIVE); Blood NEGATIVE Ery/ul (0-5); Epithelial Cells MODERATE /HPF (FEW); Glucose NEGATIVE (NEGATIVE); Ketones NEGATIVE (NEGATIVE); Leukocyte Esterase TRACE (NEGATIVE); Nitrite NEGATIVE (NEGATIVE); Protein,Urine Dip NEGATIVE (Negative); Specific Gravity 1.015 (1.005-1.025); Urobilinogen NORMAL mg/dL (0-1)
[2018-06-07 16:23] LABS: ANION GAP 15.1 MEQ/L (5-15); BLOOD UREA NITROGEN 13 mg/dL (7-17); CHLORIDE 104 mmol/L (98-107); Calcium 9.7 mg/dL (8.4-10.2); Carbon Dioxide 26 mmol/L (22-30); Glucose 80 mg/dL (74-106); Potassium 3.9 mmol/L (3.5-5.1); SODIUM 141 mmol/L (137-145)
--- NOTE | 2018-06-07 16:44 | XRAY ---
Indication: Vaginal bleeding and right lower quadrant cramping. Patient states approximate 5 weeks . Two-dimensional transvaginal early OB ultrasound performed. Comparison: None for this . Uterus is retroflexed measuring 8.8 x 5.0 x 6.9 cm. Endometrial stripe is thickened measuring 22.4 mm. Query intrauterine fundal gestational sac measuring 5 weeks 0 days. No pole or heart tones at this time. Right ovary measures 3.5 x 2.3 x 3.6 cm and the left measures 3.2 x 1.6 x 1.8 cm with normal follicular cysts and color perfusion. No suspicious adnexal mass. Tiny free fluid near the uterine fundus. Impression: Query tiny intrauterine gestational sac measuring 5 weeks 0 days. No pole or heart tones. Correlate with serial beta hCG and follow-up sonogram regarding viability. Comment: Preliminary report was given.
== END 2018-06-07 17:16 | disposition home or self-care (01) ==
LOC: ED 14:38
DX: O20.0 Threatened abortion (principal); Z3A.01 Less than 8 weeks gestation of pregnancy
CPT/HCPCS: 36415; 76801; 80048; 81000; 84702; 85025; 99283

== ENCOUNTER 2018-09-06 11:54 | Emergency (ER) | payer BC ==
[2018-09-06 12:17] VITALS: BP 115/79; PULSE 98; O2SAT 96
--- NOTE | 2018-09-06 13:01 | ERPHSYRPT ---
- History of Present Illness Time Seen by Provider: 09/06/18 12:45 Source: patient Exam Limitations: no limitations Patient Subjective Stated Complaint: cough, chest hurts, nausea, vomiting, mucus draining Triage Nursing Assessment: Pt went to [facility] on Monday due to cough, was told to do natural medications due to , she feels it has now developed into bronchitis, chest hurts, coughing, nausea, vomiting mucus, vitals wnl, pulses normal, 18 weeks Physician History: 28 y/o white female presents with 4 day h/o coughing and chest pain with cough. cough was productive with greenish sputum but has tapered off. pt seen at urgent care and dx with bronchitis. no tx. sx worsening. has been drinking hot tea with honey. pt is 1 weeks Timing/Duration: day(s) (4) Cough Quality/Degree: productive cough Possible Cause: no prior episodes Modifying Factors: Improves With: coughing, deep breath (brings on cough) Associated Symptoms: chest pain/soreness (with cough), cough, No fever, No chills, No dizziness, No earache, No facial pain, No headache, No lightheadedness, No muscle aches, No nasal congestion, No nasal drainage, No shortness of breath, No sinus infection, No sore throat, No wheezing Allergies/Adverse Reactions: No Known Drug Allergies Allergy (Verified 09/06/18 12:17) Home Medications: Vits W-Ca,Fe,FA(<1Mg) [] 1 tab PO DAILY 03/31/17 [History] Hx Tetanus, Diphtheria Vaccination/Date Given: No Hx Influenza Vaccination/Date Given: No Hx Pneumococcal Vaccination/Date Given: No - Review of Systems Constitutional: No Symptoms Eyes: No Symptoms Ears, Nose, & Throat: No Symptoms Respiratory: Cough, No Dyspnea, No Stridor, No Wheezing Cardiac: No Symptoms, No Chest Pain, No Edema, No Palpitations, No Syncope Abdominal/Gastrointestinal: No Symptoms, No Abdominal Pain, No Nausea, No Vomiting, No Diarrhea Genitourinary Symptoms: No Symptoms, No Dysuria, No Frequency, No Hematuria Musculoskeletal: No Symptoms Skin: No Symptoms Neurological: No Symptoms Psychological: No Symptoms Endocrine: No Symptoms Hematologic/Lymphatic: No Symptoms Immunological/Allergic: No Symptoms All Other Systems: Reviewed and Negative - Past Medical History Pertinent Past Medical History: No Neurological History: No Pertinent History ENT History: No Pertinent History Cardiac History: No Pertinent History Respiratory History: No Pertinent History Endocrine Medical History: No Pertinent History Musculoskeletal History: No Pertinent History GI Medical History: No Pertinent History History: No Pertinent History Psycho-Social History: No Pertinent History Female Reproductive Disorders: No Pertinent History Other Medical History: MONO - Past Surgical History Past Surgical History: No Neuro Surgical History: No Pertinent History Cardiac: No Pertinent History Respiratory: No Pertinent History Gastrointestinal: No Pertinent History Genitourinary: No Pertinent History Musculoskeletal: No Pertinent History Female Surgical History: No Pertinent History - Social History Smoking Status: Never smoker Exposure to second hand smoke: No Drug Use: none Patient Lives Alone: No - Female History Hx Now: Yes Expected Date of Delivery: 02/07/19 - Nursing Vital Signs Nursing Vital Signs: Initial Vital Signs Temperature 98.2 F 09/06/18 12:08 Pulse Rate 98 H 09/06/18 12:08 Blood Pressure 115/79 09/06/18 12:08 O2 Sat by Pulse Oximetry 96 09/06/18 12:08 Pain Scale Pain Intensity 6 - Physical Exam General Appearance: no apparent distress, alert Eye Exam: PERRL/EOMI, eyes nml inspection Ears, Nose, Throat Exam: normal ENT inspection, TMs normal, moist mucous membranes Neck Exam: normal inspection, non-tender, supple, full range of motion Respiratory Exam: normal breath sounds, lungs clear, airway intact, No chest tenderness, No respiratory distress, No accessory muscle use, No rhonchi, No wheezing, No stridor Cardiovascular Exam: regular rate/rhythm, normal heart sounds, normal peripheral pulses Gastrointestinal/Abdomen Exam: soft, normal bowel sounds, No tenderness, No guarding, No rebound Pelvic Exam: not done Rectal Exam: not done Back Exam: normal inspection, normal range of motion, No CVA tenderness, No vertebral tenderness Extremity Exam: normal inspection Neurologic Exam: alert, oriented x 3, cooperative, supervising broker II-XII nml as tested Skin Exam: normal color, warm, dry Lymphatic Exam: No adenopathy SpO2 Interpretation: normal SpO2: 96 Oxygen Delivery: Room Air - Course Nursing assessment & vital signs reviewed: Yes - Progress Progress: unchanged Air Movement: good Blood Culture(s) Obtained: No Antibiotics given: No Counseled pt/family regarding: diagnosis, need for follow-up - Departure Time of Disposition: 13:01 Departure Disposition: Home Clinical Impression: Bronchitis Condition: Stable Critical Care Time: No Additional Instructions: drink plenty of fluids. follow up with primary doctor for persistent symptoms. add robitussin dm and benadryl as discussed for cough. continue your hot tea and honey Prescriptions: Cephalexin Mh 500 mg [Keflex 500 mg] 500 mg PO TID #15 capsule
== END 2018-09-06 13:21 | disposition home or self-care (01) ==
LOC: ED 11:54
DX: O26.892 Other specified pregnancy related conditions, second trimester (principal); Z3A.18 18 weeks gestation of pregnancy; J40 Bronchitis, not specified as acute or chronic
CPT/HCPCS: 99283

== ENCOUNTER 2018-12-01 09:24 | Observation (INO) | payer BC ==
[2018-12-01 09:46] VITALS: BP 107/71; PULSE 112
[2018-12-01 10:03] LABS: Appearance CLOUDY (CLEAR); Bacteria RARE /HPF (NEGATIVE); Bilirubin NEGATIVE (NEGATIVE); Blood NEGATIVE Ery/ul (0-5); Epithelial Cells MODERATE /HPF (FEW); Glucose NEGATIVE (NEGATIVE); Ketones TRACE (NEGATIVE); Leukocyte Esterase MODERATE (NEGATIVE); Mucus MODERATE /HPF (NEGATIVE); Nitrite NEGATIVE (NEGATIVE); Protein,Urine Dip 100 (Negative); Specific Gravity 1.031 (1.005-1.025); Urobilinogen 2 mg/dL (0-1)
[2018-12-01 10:15] LABS: Amphetamine,Urine NEGATIVE (NEGATIVE); Barbiturate,Urine NEGATIVE (NEGATIVE); Benzodiazepine,Urine NEGATIVE (NEGATIVE); Cocaine,Urine NEGATIVE (NEGATIVE); Methadone,Urine NEGATIVE (NEGATIVE); Opiate,Urine NEGATIVE (NEGATIVE); PCP,Urine NEGATIVE (NEGATIVE); THC,Urine NEGATIVE (NEGATIVE)
== END 2018-12-01 10:51 | disposition home or self-care (01) ==
LOC: OB 09:24
PROVIDERS: ADMIT Family Medicine; ATTEND Family Medicine
DX: Z34.83 Encounter for supervision of other normal pregnancy, third trimester (principal)
CPT/HCPCS: 80307; 81001; G0378

== ENCOUNTER 2019-08-25 11:02 | Emergency (ER) | payer BC ==
[2019-08-25] MEDS ORDERED: TORAdol 30 mg Injection IM ONE (11:38)
--- NOTE | 2019-08-25 11:38 | ERPHSYRPT ---
- History of Present Illness Time Seen by Provider: 08/25/19 11:20 Source: patient Exam Limitations: no limitations Patient Subjective Stated Complaint: PT states "For the past week or so I have had a stiff neck and a horrible headache. I have a friend that is a nurse and they said I might have meningitis so I came to get checked out." Triage Nursing Assessment: Pt presented through the front, alert and oriented X 3, skin pwd Pt ambulates with an upright steady gait, able to speak in clear full sentences Pt in no apparent respiratory ditress. pt sitting on bed with knees pulled to chest Physician History: Patient has had a band like headache around the frontal head with neck and back pain for the past 5 days. The headache was gradual onset. She denies any trauma history. Headache began a few days after her menses stopped. Patient has not been evaluated or treated prior to coming into the emergency department. Timing/Duration: day(s) (5) Quality: throbbing Head Pain Location: frontal Severity of Pain-Max: severe Severity of Pain-Current: severe Recent Head Trauma: occasional headaches Modifying Factors: Improves With: rest. Worsens With: exposure to light Associated Symptoms: neck pain, sensitive to light, stiff neck, No confusion, No dizziness, No fatigue, No facial pain, No fever/chills, No flushing, No light -headedness, No loss of consciousness, No nasal congestion, No nasal drainage, No numbness in legs/feet, No rash, No sweating, No scotoma, No seizures, No sinus infection, No speech problems, No trouble walking, No vision changes, No visual disturbance, No weakness Previous symptoms: same symptoms as today, no recent treatment Allergies/Adverse Reactions: No Known Drug Allergies Allergy (Verified 12/01/18 09:39) Home Medications: Norgestimate-Ethinyl Estradiol [Tri Femynor 28 Tablet] 1 tab PO DAILY 08/25/19 [ History] Sertraline HCl 50 mg PO DAILY 08/25/19 [History] Hx Tetanus, Diphtheria Vaccination/Date Given: Yes Hx Influenza Vaccination/Date Given: Yes Hx Pneumococcal Vaccination/Date Given: No Immunizations Up to Date: Yes - Review of Systems Constitutional: No Fever, No Chills, No Fatigue Eyes: Photophobia, No Eye Pain, No Vision Changes Ears, Nose, & Throat: No Ear Pain, No Nose Congestion, No Epistaxis, No Mouth Swelling, No Throat Swelling, No Painful Swallowing, No Stridor Respiratory: No Cough, No Dyspnea Cardiac: No Chest Pain, No Palpitations, No Syncope Abdominal/Gastrointestinal: Nausea, No Abdominal Pain, No Vomiting Genitourinary Symptoms: No Dysuria, No Frequency, No Hematuria, No Flank Pain Musculoskeletal: No Arthralgias, No Back Pain, No Neck Pain Skin: No Pruritis, No Rash Neurological: Headache, No Dizziness, No Focal Weakness, No Lethargy, No Parasthesia, No Seizure, No Speech Changes, No Tremors, No Vertigo Psychological: No Anxiety, No Emotional Lability Endocrine: No Polydipsia, No Excessive Sweating Hematologic/Lymphatic: No Easy Bleeding, No Easy Bruising All Other Systems: Reviewed and Negative - Past Medical History Pertinent Past Medical History: No Neurological History: No Pertinent History ENT History: No Pertinent History Cardiac History: No Pertinent History Respiratory History: No Pertinent History Endocrine Medical History: No Pertinent History Musculoskeletal History: No Pertinent History GI Medical History: No Pertinent History History: No Pertinent History Psycho-Social History: No Pertinent History Female Reproductive Disorders: No Pertinent History Other Medical History: MONO - Past Surgical History Past Surgical History: No Neuro Surgical History: No Pertinent History Cardiac: No Pertinent History Respiratory: No Pertinent History Gastrointestinal: No Pertinent History Genitourinary: No Pertinent History Musculoskeletal: No Pertinent History Female Surgical History: No Pertinent History - Social History Smoking Status: Never smoker Exposure to second hand smoke: No Drug Use: none Patient Lives Alone: No - Female History Hx Last Menstrual Period: 08/17/2019 Hx Now: No - Nursing Vital Signs Nursing Vital Signs: Initial Vital Signs Temperature 99.3 F 08/25/19 11:21 Pulse Rate 86 08/25/19 11:21 Respiratory Rate 18 08/25/19 11:21 Blood Pressure 130/83 08/25/19 11:21 O2 Sat by Pulse Oximetry 96 08/25/19 11:21 Pain Scale Pain Intensity 1 - Physical Exam General Appearance: no apparent distress, alert Eye Exam: PERRL/EOMI, eyes nml inspection, No scleral icterus, No pale conjunctivae, No photophobia, No post op pupil defect (L), No post op pupil defect (R), No EOM palsy/anisocoria Ears, Nose, Throat Exam: normal ENT inspection, TMs normal, pharynx normal, moist mucous membranes, No dry mucous membranes, No TM abnormal (R), No TM abnormal (L), No pharyngeal erythema, No tonsillar exudate Neck Exam: normal inspection, non-tender, supple, full range of motion, No meningismus, No mass, No Brudzinski, No Kernig's, No limited range of motion, No lymphadenopathy, No subcutaneous emphysema, No midline tenderness Respiratory Exam: normal breath sounds, lungs clear, airway intact, No chest tenderness, No respiratory distress, No diminished breath sounds, No accessory muscle use, No crackles/rales, No rhonchi, No wheezing, No stridor, No pleural rub Cardiovascular Exam: regular rate/rhythm, normal heart sounds, normal peripheral pulses, capillary refill <2 sec, No murmur, No friction rub Gastrointestinal/Abdominal Exam: soft, normal bowel sounds, No tenderness, No distention, No mass, No guarding, No ecchymosis Back Exam: normal inspection, normal range of motion, No CVA tenderness, No vertebral tenderness, No rash, No muscle spasm Extremity Exam: normal inspection, normal range of motion, pelvis stable Mental Status Exam: alert, oriented x 3, 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 Exam: normal hearing, normal speech, PERRL, tongue midline, No abnormal gag reflex, No abnormal pupil position, No facial asymmetry, No facial weakness, No gaze palsy, No tongue deviation to L Coordination/Gait Exam: normal finger to nose, normal gait Motor/Sensory Exam: no motor deficit, no sensory deficit, No weak motor strength RUE, No weak motor strength LUE, No weak motor strength RLE, No weak motor strength LLE DTR Exam: ankle (R): 2+, ankle (L): 2+ Skin Exam: normal color, warm, dry, No rash, No petechiae, No jaundice, No cyanosis SpO2 Interpretation: normal SpO2: 96 O2 Delivery: Room Air - Course Nursing assessment & vital signs reviewed: Yes Ordered Tests: Active Orders 24 hr Category Date Time Status IV Insertion STAT Care 08/25/19 12:21 Active CBC W DIFF Stat Lab 08/25/19 12:40 Completed CMP Stat Lab 08/25/19 12:40 Completed HCG QUALITATIVE,SERUM Stat Lab 08/25/19 12:40 Completed Lactic Acid Stat Lab 08/25/19 12:40 Completed PROTIME WITH INR Stat Lab 08/25/19 12:40 Completed SED RATE [Erythrocyte Sedimentation Rate] Stat Lab 08/25/19 12:52 Completed Medication Summary Discontinued Medications Generic Name Dose Route Start Last Admin Trade Name Freq PRN Reason Stop Dose Admin Diphenhydramine HCl 50 mg 08/25/19 11:39 08/25/19 11:45 Benadryl 25 Mg Capsule PO 08/25/19 11:40 50 mg STAT ONE Administration Diphenhydramine HCl Confirm 08/25/19 11:43 Benadryl 25 Mg Capsule Administered 08/25/19 11:44 Dose 50 mg .ROUTE .STK-MED ONE Diphenhydramine HCl 25 mg 08/25/19 12:21 08/25/19 12:53 Benadryl 50 Mg/Ml IV 08/25/19 12:22 25 mg STAT ONE Administration Diphenhydramine HCl Confirm 08/25/19 12:47 Benadryl 50 Mg/Ml Administered 08/25/19 12:48 Dose 50 mg .ROUTE .STK-MED ONE Hydromorphone HCl 1 mg 08/25/19 12:21 08/25/19 12:53 Hydromorphone 1 Mg/Ml Ampule IV 08/25/19 12:22 1 mg STAT ONE Administration Hydromorphone HCl Confirm 08/25/19 12:47 Hydromorphone 1 Mg/Ml Ampule Administered 08/25/19 12:48 Dose 1 mg .ROUTE .STK-MED ONE Sodium Chloride 1,000 mls @ 999 mls/hr 08/25/19 12:21 08/25/19 14:06 Sodium Chloride 0.9% 1000 Ml IV 08/25/19 13:21 Infused .Q1H1M STA Infusion Sodium Chloride Confirm 08/25/19 12:47 Sodium Chloride 0.9% 1000 Ml Administered 08/25/19 12:48 Dose 1,000 mls @ ud .ROUTE .STK-MED ONE Ketorolac Tromethamine 60 mg 08/25/19 11:38 08/25/19 11:45 Toradol 30 Mg Injection IM 08/25/19 11:39 60 mg STAT ONE Administration Ketorolac Tromethamine Confirm 08/25/19 11:43 Toradol 30 Mg Injection Administered 08/25/19 11:44 Dose 60 mg .ROUTE .STK-MED ONE Ondansetron HCl 4 mg 08/25/19 11:39 08/25/19 11:45 Zofran Odt 4 Mg PO 08/25/19 11:40 4 mg STAT ONE Administration Ondansetron HCl Confirm 08/25/19 11:43 Zofran Odt 4 Mg Administered 08/25/19 11:44 Dose 4 mg .ROUTE .STK-MED ONE Prochlorperazine Edisylate 10 mg 08/25/19 12:21 08/25/19 12:53 Compazine 10 Mg/2 Ml IV 08/25/19 12:22 10 mg STAT ONE Administration Prochlorperazine Edisylate Confirm 08/25/19 12:47 Compazine 10 Mg/2 Ml Administered 08/25/19 12:48 Dose 10 mg .ROUTE .STK-MED ONE Lab/Rad Data: Laboratory Result Diagrams 08/25/19 12:40 08/25/19 12:40 Laboratory Results 08/25/19 08/25/19 08/25/19 Range/Units 12:52 12:40 12:40 WBC (4.0-10.5) K/mm3 RBC (4.1-5.4) M/mm3 Hgb (12.0-16.0) gm/dl Hct (35-47) % MCV (78-100) fl MCH (26-32) pg MCHC (32-36) g/dl RDW (11.5-14.0) % Plt Count (150-450) K/mm3 MPV (6-9.5) fl Gran % (36.0-66.0) % Eos # (Auto) (0-0.5) Absolute Lymphs (auto) (1.0-4.6) Absolute Monos (auto) (0.0-1.3) Lymphocytes % (24.0-44.0) % Monocytes % (0.0-12.0) % Eosinophils % (0.00-5.0) % Basophils % (0.0-0.4) % Absolute Granulocytes (1.4-6.9) Basophils # (0-0.4) ESR 10 (0-20) mm/hr PT 11.0 (9.95-12.35) SECONDS INR 0.97 (0.8-3.0) Sodium (137-145) mmol/L Potassium (3.5-5.1) mmol/L Chloride (98-107) mmol/L Carbon Dioxide (22-30) mmol/L Anion Gap (5-15) MEQ/L BUN (7-17) mg/dL Creatinine (0.52-1.04) mg/dL Estimated GFR ML/MIN Glucose (74-106) mg/dL Lactic Acid (0.4-2.0) Calcium (8.4-10.2) mg/dL Total Bilirubin (0.2-1.3) mg/dL AST (14-36) U/L ALT (0-35) U/L Alkaline Phosphatase (38-126) U/L Serum Total Protein (6.3-8.2) g/dL Albumin (3.5-5.0) g/dL Serum , Qual NEGATIVE (Negative) 08/25/19 08/25/19 08/25/19 Range/Units 12:40 12:40 12:40 WBC 5.2 (4.0-10.5) K/mm3 RBC 4.16 (4.1-5.4) M/mm3 Hgb 13.0 (12.0-16.0) gm/dl Hct 39.3 (35-47) % MCV 94.5 (78-100) fl MCH 31.3 (26-32) pg MCHC 33.1 (32-36) g/dl RDW 12.3 (11.5-14.0) % Plt Count 221 (150-450) K/mm3 MPV 11.1 H (6-9.5) fl Gran % 55.8 (36.0-66.0) % Eos # (Auto) 0.08 (0-0.5) Absolute Lymphs (auto) 1.75 (1.0-4.6) Absolute Monos (auto) 0.42 (0.0-1.3) Lymphocytes % 34.0 (24.0-44.0) % Monocytes % 8.2 (0.0-12.0) % Eosinophils % 1.6 (0.00-5.0) % Basophils % 0.4 (0.0-0.4) % Absolute Granulocytes 2.88 (1.4-6.9) Basophils # 0.02 (0-0.4) ESR (0-20) mm/hr PT (9.95-12.35) SECONDS INR (0.8-3.0) Sodium 142 (137-145) mmol/L Potassium 4.2 (3.5-5.1) mmol/L Chloride 105 (98-107) mmol/L Carbon Dioxide 27 (22-30) mmol/L Anion Gap 14.5 (5-15) MEQ/L BUN 16 (7-17) mg/dL Creatinine 0.63 (0.52-1.04) mg/dL Estimated GFR > 60.0 ML/MIN Glucose 78 (74-106) mg/dL Lactic Acid 1.2 (0.4-2.0) Calcium 9.5 (8.4-10.2) mg/dL Total Bilirubin 0.50 (0.2-1.3) mg/dL AST 24 (14-36) U/L ALT 15 (0-35) U/L Alkaline Phosphatase 68 (38-126) U/L Serum Total Protein 8.0 (6.3-8.2) g/dL Albumin 4.3 (3.5-5.0) g/dL Serum , Qual (Negative) - Progress Progress: improved Air Movement: good Progress Note: 08/25/19 12:24 Patient feel no better after IM and PO medications. Patient requested labwork, so labs, IV placement, hydration and IV medications will be given. Patient clinically is at very low probability of meningitis or encephalitis causing her headache and I have notified her she does not warrant a lumbar puncture at this time. 08/25/19 14:13 Headache has significantly improved after IV fluid and medication. Patient has a supple neck, no suspicious rashes, afebrile and no focal neurologic deficits. Blood Culture(s) Obtained: No Antibiotics given: No Counseled pt/family regarding: lab results, diagnosis, need for follow-up - Departure Departure Disposition: Home Clinical Impression: Elevated blood pressure reading without diagnosis of hypertension Tension type headache, unspecified Qualifiers: Headache chronicity pattern: acute headache Intractability: not intractable Qualified Code(s): G44.209 - Tension-type headache, unspecified, not intractable Migraine Qualifiers: Migraine type: without aura Status migrainosus presence: with status migrainosus Intractability: not intractable Qualified Code(s): G43.001 - Migraine without aura, not intractable, with status migrainosus Condition: Good Critical Care Time: No Referrals: TEE JACOBSON [Primary Care Provider] - 08/26/19 Instructions: DASH Diet, Migraine Headache (DC), Headache, Adult (DC) Additional Instructions: Your headache was a mix of tension-type with migraine features. You did not need any imaging such as a CT scan of the head at this time and I do not feel that you had any symptoms or signs that were consistent with meningitis/ encephalitis. Your lab work was normal including a CBC, CMP, lactic acid and sedimentation rate. Return immediately back to the Emergency Department if any worsening headache, neck pain, new fever, new rashes, uncontrollable nausea and vomiting, new chest pain, new shortness of breath, new abdominal pain, new weakness or new loss of sensation or any other concerning signs or symptoms that were not present at today's emergency department visit for immediately re- evaluation in the emergency department.
[2019-08-25] MEDS ORDERED: BENADRYL 25 MG CAPSULE PO ONE (11:39)
[2019-08-25] MEDS ORDERED: ZOFRAN ODT 4 MG PO ONE (11:39)
[2019-08-25] MEDS ORDERED: TORAdol 30 mg Injection ONE (11:43)
[2019-08-25] MEDS ORDERED: ZOFRAN ODT 4 MG ONE (11:43)
[2019-08-25] MEDS ORDERED: BENADRYL 25 MG CAPSULE ONE (11:43)
[2019-08-25] MEDS ORDERED: Compazine 10 MG/2 ML IV ONE (12:21)
[2019-08-25] MEDS ORDERED: Sodium Chloride 0.9% 1000 ML 1,000 ML IV STA (12:21)
[2019-08-25] MEDS ORDERED: BENADRYL 50 MG/ML IV ONE (12:21)
[2019-08-25] MEDS ORDERED: Hydromorphone 1 mg/ml Ampule IV ONE (12:21)
[2019-08-25] MEDS ORDERED: Compazine 10 MG/2 ML ONE (12:47)
[2019-08-25] MEDS ORDERED: Hydromorphone 1 mg/ml Ampule ONE (12:47)
[2019-08-25] MEDS ORDERED: Sodium Chloride 0.9% 1000 ML 1,000 ML ONE (12:47)
[2019-08-25] MEDS ORDERED: BENADRYL 50 MG/ML ONE (12:47)
[2019-08-25 12:49] LABS: Absolute Neutrophil Ct (ANC) 2.88 (1.4-6.9); BASOPHIL % 0.4 % (0.0-0.4); Basophil (Absolute #) 0.02 (0-0.4); Eosinophil % 1.6 % (0.00-5.0); Eosinophil (Absolute #) 0.08 (0-0.5); Hematocrit 39.3 % (35-47); Lymphocyte (Absolute #) 1.75 (1.0-4.6); Mean Cell Volume 94.5 fl (78-100); Mean Corpuscular Hemoglobin 31.3 pg (26-32); Mean Corpuscular Hgb Concent. 33.1 g/dl (32-36); Mean Platelet Volume 11.1 fl (6-9.5); Monocyte (Absolute #) 0.42 (0.0-1.3); Monocytes % 8.2 % (0.0-12.0); Neutrophil % 55.8 % (36.0-66.0); Platelet Count 221 K/mm3 (150-450); Red Blood Count 4.16 M/mm3 (4.1-5.4); Red Cell Distribution Width 12.3 % (11.5-14.0); White Blood Count 5.2 K/mm3 (4.0-10.5)
[2019-08-25 12:59] LABS: ALBUMIN 4.3 g/dL (3.5-5.0); ALKALINE PHOSPHATASE 68 U/L (38-126); ANION GAP 14.5 MEQ/L (5-15); BLOOD UREA NITROGEN 16 mg/dL (7-17); CHLORIDE 105 mmol/L (98-107); Calcium 9.5 mg/dL (8.4-10.2); Carbon Dioxide 27 mmol/L (22-30); Creatinine 1 0.63 mg/dL (0.52-1.04); Glucose 78 mg/dL (74-106); Potassium 4.2 mmol/L (3.5-5.1); SGOT/AST 24 U/L (14-36); SGPT/ALT 15 U/L (0-35); SODIUM 142 mmol/L (137-145)
[2019-08-25 13:03] LABS: INR 0.97 (0.8-3.0)
[2019-08-25 14:39] VITALS: BP 108/63; PULSE 64; O2SAT 99
== END 2019-08-25 14:37 | disposition home or self-care (01) ==
LOC: ED 11:02
DX: R03.0 Elevated blood-pressure reading, without diagnosis of hypertension (principal); G44.209 Tension-type headache, unspecified, not intractable; G43.001 Migraine without aura, not intractable, with status migrainosus
CPT/HCPCS: 36000; 36415; 80053; 81025; 83605; 85025; 85610; 85652; 96372; 96374; 96375; 99284; J1170; J1200; J1885; Q0162; A9270-GY

== ENCOUNTER 2019-09-04 23:36 | Emergency (ER) | payer BC ==
[2019-09-04 23:51] VITALS: O2SAT 95
--- NOTE | 2019-09-05 00:13 | ERPHSYRPT ---
- History of Present Illness Time Seen by Provider: 09/04/19 23:55 Historian: patient Exam Limitations: no limitations Patient Subjective Stated Complaint: pt states, "I was asleep and woke up with lower abd pain, vomited x6, and very cold". Pt states, "I have felt achy all over, diarrhea, headache the last few days". Triage Nursing Assessment: pt alert and oriented, cooperative, mother at bedside. Pt c/o low abd pain, cramping which radiates to mid lower back. Abd soft with active bsx4 quad, nontender on palpation. Pt has also vomited x6 tonight due to the pain. Diarrhea today and cold, chills and headache the last few days. Lungs clear, heart tones reg. Physician History: Patient was awaken with bilateral lower abdominal pain with radiation into the groin. The pain caused her to vomit 6 times. Patient has a history of ovarian cysts rupturing causing similar pain in the past. Timing/Duration: hour(s) (1) Activities at Onset: none Quality: burning, sharpness Abdominal Pain Onset Location: RLQ, LLQ Pain Radiation: groin (bilaterally) Severity of Pain-Max: severe Severity of Pain-Current: severe Modifying Factors: Improves With: nothing Associated Symptoms: nausea, vomiting (times 6 times), No back, No chest pain, No diaphoresis, No diarrhea, No fever/chills, No fatigue, No headache, No heartburn, No loss of appetite, No neck pain, No shortness of breath, No syncope , No weakness Previous symptoms: same symptoms as today (ruptured ovrian cyst), no recent treatment Allergies/Adverse Reactions: No Known Drug Allergies Allergy (Verified 12/01/18 09:39) Home Medications: Norgestimate-Ethinyl Estradiol [Tri Femynor 28 Tablet] 1 tab PO DAILY 08/25/19 [ History] Sertraline HCl 50 mg PO DAILY 08/25/19 [History] Hx Tetanus, Diphtheria Vaccination/Date Given: Yes Hx Influenza Vaccination/Date Given: No Hx Pneumococcal Vaccination/Date Given: No Immunizations Up to Date: Yes - Review of Systems Constitutional: Chills, No Fever Ears, Nose, & Throat: No Throat Pain, No Painful Swallowing Respiratory: No Cough, No Dyspnea Cardiac: No Chest Pain, No Palpitations, No Syncope Abdominal/Gastrointestinal: Abdominal Pain, Nausea, Vomiting, Diarrhea (two previous days; none with these symptoms), No Hematemesis, No Hematochezia, No Melena Genitourinary Symptoms: No Dysuria, No Frequency, No Hematuria, No Urinary Retention, No Flank Pain, No Vaginal Discharge Musculoskeletal: Myalgias (prior to symptoms), No Back Pain, No Neck Pain Skin: No Pruritis, No Rash Neurological: Headache (prior to tonights symptoms), No Dizziness, No Focal Weakness, No Parasthesia, No Sensory Changes, No Speech Changes Psychological: No Anxiety Endocrine: No Polydipsia, No Excessive Sweating Hematologic/Lymphatic: No Easy Bleeding, No Easy Bruising All Other Systems: Reviewed and Negative - Past Medical History Pertinent Past Medical History: No Neurological History: No Pertinent History ENT History: No Pertinent History Cardiac History: No Pertinent History Respiratory History: No Pertinent History Endocrine Medical History: No Pertinent History Musculoskeletal History: No Pertinent History GI Medical History: No Pertinent History History: No Pertinent History Psycho-Social History: No Pertinent History Female Reproductive Disorders: Other Other Medical History: MONO. ruptured cyst on ovary - Past Surgical History Past Surgical History: No Neuro Surgical History: No Pertinent History Cardiac: No Pertinent History Respiratory: No Pertinent History Gastrointestinal: No Pertinent History Genitourinary: No Pertinent History Musculoskeletal: No Pertinent History Female Surgical History: No Pertinent History - Social History Smoking Status: Never smoker Exposure to second hand smoke: No Drug Use: none Patient Lives Alone: No - Female History Hx Last Menstrual Period: 08/08/19 Hx Now: No - Nursing Vital Signs Nursing Vital Signs: Initial Vital Signs Temperature 98.7 F 09/04/19 23:50 Pulse Rate 82 09/04/19 23:50 Respiratory Rate 16 09/04/19 23:50 Blood Pressure 121/80 09/04/19 23:50 O2 Sat by Pulse Oximetry 95 09/04/19 23:50 Pain Scale Pain Intensity 8 - Physical Exam General Appearance: no apparent distress, alert Eye Exam: PERRL/EOMI, eyes nml inspection, No scleral icterus, No pale conjunctivae Ears, Nose, Throat Exam: pharynx normal, moist mucous membranes Neck Exam: normal inspection, non-tender, supple, full range of motion, No meningismus, No Brudzinski Respiratory Exam: normal breath sounds, lungs clear, airway intact, No chest tenderness, No respiratory distress, No accessory muscle use, No crackles/rales , No rhonchi, No wheezing, No stridor Cardiovascular Exam: regular rate/rhythm, normal heart sounds, capillary refill <2 sec Gastrointestinal/Abdomen Exam: soft, normal bowel sounds, No tenderness, No distention, No mass, No guarding, No rebound Pelvic Exam: normal external exam, other (chaperoned by Allison Cabrera RN.) , No adnexal tenderness, No adnexal mass, No cervical motion tenderness, No vaginal bleeding, No uterine tenderness, No vaginal discharge Rectal Exam: normal exam Back Exam: normal inspection, normal range of motion, No CVA tenderness, No vertebral tenderness, No rash Extremity Exam: normal inspection, normal range of motion, pelvis stable, No calf tenderness, No maurizio's sign, No swelling Neurologic Exam: alert, oriented x 3, cooperative, mailer II-XII nml as tested, normal mood/affect, sensation nml, No motor deficits Skin Exam: normal color, warm, dry, rash, No petechiae, No jaundice, No cyanosis Lymphatic Exam: No inguinal node tender (L), No inguinal node tender (R) SpO2 Interpretation: normal SpO2: 95 O2 Delivery: Room Air - Radiology Ultrasound Exam Pelvis Ultrasound: No Torsion/Nml Flow, Other (some fluid noted around the uterus) Ordered Tests: Active Orders 24 hr Category Date Time Status IV Insertion STAT Care 09/05/19 00:02 Active NPO (ED) STAT Care 09/05/19 00:02 Active Pelvic Exam Assist STAT Care 09/05/19 00:02 Active PELVIC [US] Stat Exams 09/05/19 00:02 Ordered AMYLASE Stat Lab 09/05/19 00:25 Completed CBC W DIFF Stat Lab 09/05/19 00:25 Completed CMP Stat Lab 09/05/19 00:25 Completed HCG,QUALITATIVE URINE Stat Lab 09/05/19 00:20 Completed LIPASE Stat Lab 09/05/19 00:25 Completed Lactic Acid Stat Lab 09/05/19 00:25 Completed UA W/RFX UR CULTURE Stat Lab 09/05/19 00:20 Completed Wet Prep Stat Lab 09/05/19 00:35 Completed Medication Summary Discontinued Medications Generic Name Dose Route Start Last Admin Trade Name Freq PRN Reason Stop Dose Admin Diphenhydramine HCl 25 mg 09/05/19 00:09 09/05/19 00:16 Benadryl 50 Mg/Ml IV 09/05/19 00:10 25 mg STAT ONE Administration Diphenhydramine HCl Confirm 09/05/19 00:14 Benadryl 50 Mg/Ml Administered 09/05/19 00:15 Dose 50 mg .ROUTE .STK-MED ONE Sodium Chloride 1,000 mls @ 999 mls/hr 09/05/19 00:02 09/05/19 01:58 Sodium Chloride 0.9% 1000 Ml IV 09/05/19 01:02 Infused .Q1H1M STA Infusion Sodium Chloride Confirm 09/05/19 00:14 Sodium Chloride 0.9% 1000 Ml Administered 09/05/19 00:15 Dose 1,000 mls @ ud .ROUTE .STK-MED ONE Ketorolac Tromethamine 30 mg 09/05/19 01:43 09/05/19 01:53 Toradol 30 Mg Injection IV 09/05/19 01:44 30 mg STAT ONE Administration Ketorolac Tromethamine Confirm 09/05/19 01:46 Toradol 30 Mg Injection Administered 09/05/19 01:47 Dose 30 mg .ROUTE .STK-MED ONE Morphine Sulfate 4 mg 09/05/19 00:09 09/05/19 00:16 Morphine Sulfate 4 Mg Inj IV 09/05/19 00:10 4 mg STAT ONE Administration Morphine Sulfate Confirm 09/05/19 00:14 Morphine Sulfate 4 Mg Inj Administered 09/05/19 00:15 Dose 4 mg .ROUTE .STK-MED ONE Potassium Chloride 40 meq 09/05/19 01:42 09/05/19 01:52 Klor Con 10 Meq PO 09/05/19 01:43 40 meq STAT ONE Administration Potassium Chloride Confirm 09/05/19 01:45 Klor Con 10 Meq Administered 09/05/19 01:46 Dose 40 meq PO .STK-MED ONE Lab/Rad Data: Laboratory Result Diagrams 09/05/19 00:25 09/05/19 00:25 Laboratory Results 09/05/19 09/05/19 09/05/19 Range/Units 00:35 00:25 00:25 WBC (4.0-10.5) K/mm3 RBC (4.1-5.4) M/mm3 Hgb (12.0-16.0) gm/dl Hct (35-47) % MCV (78-100) fl MCH (26-32) pg MCHC (32-36) g/dl RDW (11.5-14.0) % Plt Count (150-450) K/mm3 MPV (6-9.5) fl Gran % (36.0-66.0) % Eos # (Auto) (0-0.5) Absolute Lymphs (auto) (1.0-4.6) Absolute Monos (auto) (0.0-1.3) Lymphocytes % (24.0-44.0) % Monocytes % (0.0-12.0) % Eosinophils % (0.00-5.0) % Basophils % (0.0-0.4) % Absolute Granulocytes (1.4-6.9) Basophils # (0-0.4) Sodium 141 (137-145) mmol/L Potassium 3.4 L (3.5-5.1) mmol/L Chloride 106 (98-107) mmol/L Carbon Dioxide 25 (22-30) mmol/L Anion Gap 13.1 (5-15) MEQ/L BUN 16 (7-17) mg/dL Creatinine 0.83 (0.52-1.04) mg/dL Estimated GFR > 60.0 ML/MIN Glucose 90 (74-106) mg/dL Lactic Acid 0.7 (0.4-2.0) Calcium 9.2 (8.4-10.2) mg/dL Total Bilirubin 0.30 (0.2-1.3) mg/dL AST 27 (14-36) U/L ALT 17 (0-35) U/L Alkaline Phosphatase 71 (38-126) U/L Serum Total Protein 7.6 (6.3-8.2) g/dL Albumin 4.2 (3.5-5.0) g/dL Amylase 88 (30-110) U/L Lipase 162 (23-300) U/L Urine Color (YELLOW) Urine Appearance (CLEAR) Urine pH (5-6) Ur Specific [place] (1.005-1.025) Urine Protein (Negative) Urine Ketones (NEGATIVE) Urine Blood (0-5) Dennis/ul Urine Nitrite (NEGATIVE) Urine Bilirubin (NEGATIVE) Urine Urobilinogen (0-1) mg/dL Ur Leukocyte Esterase (NEGATIVE) Urine WBC (Auto) (0-5) /HPF Urine RBC (Auto) (0-2) /HPF U Epithel Cells (Auto) (FEW) /HPF Urine Bacteria (Auto) (NEGATIVE) /HPF Urine Mucus (Auto) (NEGATIVE) /HPF Urine Culture Reflexed (NO) Urine Glucose (NEGATIVE) mg/dL Urine HCG, Qual (Negative) WBC (Wet Prep) Few RBC (Wet Prep) Rare Epi Cells (Wet Prep) Rare Bacteria (Wet Prep) Moderate Clue Cells (Wet Prep) None Seen Trichomonas (Wet Prep) None Seen Budding Yeast (Wet Prp) None Seen 09/05/19 09/05/19 09/05/19 Range/Units 00:25 00:20 00:20 WBC 10.1 (4.0-10.5) K/mm3 RBC 3.89 L (4.1-5.4) M/mm3 Hgb 11.8 L (12.0-16.0) gm/dl Hct 36.2 (35-47) % MCV 93.1 (78-100) fl MCH 30.3 (26-32) pg MCHC 32.6 (32-36) g/dl RDW 12.6 (11.5-14.0) % Plt Count 216 (150-450) K/mm3 MPV 10.9 H (6-9.5) fl Gran % 75.6 H (36.0-66.0) % Eos # (Auto) 0.15 (0-0.5) Absolute Lymphs (auto) 1.60 (1.0-4.6) Absolute Monos (auto) 0.68 (0.0-1.3) Lymphocytes % 15.9 L (24.0-44.0) % Monocytes % 6.8 (0.0-12.0) % Eosinophils % 1.5 (0.00-5.0) % Basophils % 0.2 (0.0-0.4) % Absolute Granulocytes 7.61 H (1.4-6.9) Basophils # 0.02 (0-0.4) Sodium (137-145) mmol/L Potassium (3.5-5.1) mmol/L Chloride (98-107) mmol/L Carbon Dioxide (22-30) mmol/L Anion Gap (5-15) MEQ/L BUN (7-17) mg/dL Creatinine (0.52-1.04) mg/dL Estimated GFR ML/MIN Glucose (74-106) mg/dL Lactic Acid (0.4-2.0) Calcium (8.4-10.2) mg/dL Total Bilirubin (0.2-1.3) mg/dL AST (14-36) U/L ALT (0-35) U/L Alkaline Phosphatase (38-126) U/L Serum Total Protein (6.3-8.2) g/dL Albumin (3.5-5.0) g/dL Amylase (30-110) U/L Lipase (23-300) U/L Urine Color YELLOW (YELLOW) Urine Appearance SLIGHTLY CLOUDY (CLEAR) Urine pH 5.0 (5-6) Ur Specific [place] 1.025 (1.005-1.025) Urine Protein NEGATIVE (Negative) Urine Ketones NEGATIVE (NEGATIVE) Urine Blood NEGATIVE (0-5) Dennis/ul Urine Nitrite NEGATIVE (NEGATIVE) Urine Bilirubin NEGATIVE (NEGATIVE) Urine Urobilinogen 2 (0-1) mg/dL Ur Leukocyte Esterase TRACE (NEGATIVE) Urine WBC (Auto) 0-2 (0-5) /HPF Urine RBC (Auto) NONE (0-2) /HPF U Epithel Cells (Auto) RARE (FEW) /HPF Urine Bacteria (Auto) NONE (NEGATIVE) /HPF Urine Mucus (Auto) SLIGHT (NEGATIVE) /HPF Urine Culture Reflexed NO (NO) Urine Glucose NEGATIVE (NEGATIVE) mg/dL Urine HCG, Qual NEGATIVE (Negative) WBC (Wet Prep) RBC (Wet Prep) Epi Cells (Wet Prep) Bacteria (Wet Prep) Clue Cells (Wet Prep) Trichomonas (Wet Prep) Budding Yeast (Wet Prp) - Progress Progress: improved Progress Note: 09/05/19 01:59 Pain and vomiting have resolved. Patient has no localized abdominal tenderness on repeat examination. 09/05/19 02:00 Patient has no acute findings that require immediate surgical, gynecologic or urologic surgical intervention at this time or any findings that require inpatient monitoring and treatment. Patient is at low probability of having an ovarian torsion at this time that requires immediate gynecologic surgical intervention. Patient will be discharged home for further evaluation as an outpatient. Counseled pt/family regarding: lab results, diagnosis, need for follow-up, rad results - Departure Departure Disposition: Home, Extended Care Facility Clinical Impression: Acute bilateral lower abdominal pain, Nausea and vomiting in adult patient, Hypokalemia, Ovarian cyst rupture Condition: Good Critical Care Time: No Referrals: [facility] [employer]ATIONS ANALYST [Primary Care Provider] - 09/05/19 Instructions: Acute Abdomen (Belly Pain), Adult (DC), Nausea and Vomiting, Adult (DC), Ovarian Cyst (DC) Additional Instructions: Your ultrasound showed good flow to both ovaries and possibly a sign of a ruptured cyst with small amount of fluid around the uterus. We will notify you immediately if the radiologist interprets anything different that changes the clinical outcome in the morning of 09/05/2019. Return immediately back to the Emergency Department if any worsening abdominal pain, vomiting, fever, urinary symptoms, diarrhea, or any other concerning signs or symptoms that were not present at today's emergency department visit for immediate reevaluation in the emergency department. Forms: Work/School Release Form Prescriptions: Etodolac 400 mg [Lodine 400 mg] 400 mg PO BID PRN PRN #20 tablet PRN Reason: Pain
[2019-09-05] MEDS ORDERED: MORPHINE SULFATE 4 MG INJ ONE (00:14)
[2019-09-05] MEDS ORDERED: Sodium Chloride 0.9% 1000 ML 1,000 ML ONE (00:14)
[2019-09-05] MEDS ORDERED: BENADRYL 50 MG/ML ONE (00:14)
[2019-09-05] MEDS: Sodium Chloride 0.9% 1000 ML 1,000 ML IV STA (00:15)
[2019-09-05] MEDS: MORPHINE SULFATE 4 MG INJ IV ONE (00:16)
[2019-09-05] MEDS: BENADRYL 50 MG/ML IV ONE (00:16)
[2019-09-05 00:29] LABS: Absolute Neutrophil Ct (ANC) 7.61 (1.4-6.9); BASOPHIL % 0.2 % (0.0-0.4); Basophil (Absolute #) 0.02 (0-0.4); Eosinophil % 1.5 % (0.00-5.0); Eosinophil (Absolute #) 0.15 (0-0.5); Hematocrit 36.2 % (35-47); Hemoglobin 11.8 gm/dl (12.0-16.0); Lymphocytes % 15.9 % (24.0-44.0); Mean Cell Volume 93.1 fl (78-100); Mean Corpuscular Hemoglobin 30.3 pg (26-32); Mean Corpuscular Hgb Concent. 32.6 g/dl (32-36); Mean Platelet Volume 10.9 fl (6-9.5); Monocyte (Absolute #) 0.68 (0.0-1.3); Monocytes % 6.8 % (0.0-12.0); Neutrophil % 75.6 % (36.0-66.0); Platelet Count 216 K/mm3 (150-450); Red Blood Count 3.89 M/mm3 (4.1-5.4); Red Cell Distribution Width 12.6 % (11.5-14.0); White Blood Count 10.1 K/mm3 (4.0-10.5)
[2019-09-05 00:38] LABS: Appearance SLIGHTLY CLOUDY (CLEAR); Bilirubin NEGATIVE (NEGATIVE); Blood NEGATIVE Ery/ul (0-5); Epithelial Cells RARE /HPF (FEW); Glucose NEGATIVE (NEGATIVE); Ketones NEGATIVE (NEGATIVE); Leukocyte Esterase TRACE (NEGATIVE); Mucus SLIGHT /HPF (NEGATIVE); Nitrite NEGATIVE (NEGATIVE); Protein,Urine Dip NEGATIVE (Negative); Specific Gravity 1.025 (1.005-1.025); Urobilinogen 2 mg/dL (0-1); WBC 0-2 /HPF (0-5)
[2019-09-05 00:44] LABS: ALBUMIN 4.2 g/dL (3.5-5.0); ALKALINE PHOSPHATASE 71 U/L (38-126); AMYLASE 88 U/L (30-110); ANION GAP 13.1 MEQ/L (5-15); BLOOD UREA NITROGEN 16 mg/dL (7-17); CHLORIDE 106 mmol/L (98-107); Calcium 9.2 mg/dL (8.4-10.2); Carbon Dioxide 25 mmol/L (22-30); Creatinine 1 0.83 mg/dL (0.52-1.04); Glucose 90 mg/dL (74-106); LIPASE 162 U/L (23-300); Potassium 3.4 mmol/L (3.5-5.1); SGOT/AST 27 U/L (14-36); SGPT/ALT 17 U/L (0-35); SODIUM 141 mmol/L (137-145); Total Protein 7.6 g/dL (6.3-8.2)
[2019-09-05 01:21] LABS: Bacteria Moderate; Clue Cells None Seen; Red Blood Cells Rare; Trichomonas None Seen; White Blood Cells Few; Yeast None Seen
[2019-09-05] MEDS ORDERED: Klor Con 10 MEQ PO ONE (01:45)
[2019-09-05] MEDS ORDERED: TORAdol 30 mg Injection ONE (01:46)
[2019-09-05] MEDS: Klor Con 10 MEQ PO ONE (01:52)
[2019-09-05] MEDS: TORAdol 30 mg Injection IV ONE (01:53)
[2019-09-05 01:56] VITALS: BP 117/75; PULSE 90
[2019-09-05 02:44] LABS: CHLAMYDIA DNA NEGATIVE; N GONORRHOEAE DNA NEGATIVE
--- NOTE | 2019-09-05 08:59 | XRAY ---
Indication: Bilateral pelvic pain and vomiting. Two-dimensional transvaginal pelvic sonogram performed. Comparison: February 08, 2018. Uterus is now retroflexed measuring 6.1 x 4.1 x 5.0 cm. No focal solid/cystic uterine mass. Endometrial stripe measures 6 mm. No new endometrial cavity mass or fluid collection. Right ovary measures 3.3 x 1.6 x 2.0 cm and the left measures 1.3 x 1.7 x 1.4 cm. Normal follicular cysts and perfusion bilaterally. Tiny bilateral free fluid presumed physiologic from rupture/leaking cyst. No suspicious solid adnexal mass. Impression: Retroflexed uterus with tiny free fluid presumed physiologic. Remaining transvaginal pelvic sonogram is negative. Comment: Preliminary report was given.
== END 2019-09-05 02:18 | disposition home or self-care (01) ==
LOC: ED 23:36
DX: R10.31 Right lower quadrant pain (principal); R10.32 Left lower quadrant pain; R11.2 Nausea with vomiting, unspecified; E87.6 Hypokalemia; N83.209 Unspecified ovarian cyst, unspecified side
CPT/HCPCS: 36000; 36415; 76856; 80053; 81001; 82150; 83605; 83690; 84703; 85025; 87210; 87490; 87590; 96360; 96374; 96375; 99284; J1200; J1885; J2270; A9270-GY

== ENCOUNTER 2021-04-11 06:50 | Emergency (ER) | payer BC ==
--- NOTE | 2021-04-11 07:14 | ERPHSYRPT ---
- History of Present Illness Time Seen by Provider: 04/11/21 07:09 Source: patient, family Exam Limitations: no limitations Patient Subjective Stated Complaint: sore throat and feels like it's closing Triage Nursing Assessment: Pt drove self to the ER, hypertensive, tachycardic, states that her throat began hurting yesterday but it was managable but is not today, reports both ears hurting, rates pain 08/08 Physician History: pt having lots of pain swolling greater on right side , still swallowing saliva OK in ER., pain limiting opening of mouth and some hoarseness. tender right vervial nodes. TM normal bilaterally teeth all nontender. normal digastric triangle floor of mouth supple without swelling. Pharynx inf lammed . some blisters vesicles also noted at posterior pharynx could also represent herpangina or satellite lesions. CHest clear. No N/V. No trauma or choking or Hx of anything catching on swallowi ng. Discussed risk/benefit of CT and pt wishes to proceed. Timing/Duration: gradual onset, yesterday Severity: severe ENT Location: throat Modifying Factors: Improves With: nothing Associated Symptoms: ear pain (R), ear pain (L), facial pain/swelling, neck pain, sore throat, difficulty swallowing, voice change Allergies/Adverse Reactions: No Known Drug Allergies Allergy (Verified 04/11/21 06:59) Home Medications: Sertraline HCl 50 mg PO DAILY 08/25/19 [History] Hx Tetanus, Diphtheria Vaccination/Date Given: Yes Hx Influenza Vaccination/Date Given: No Hx Pneumococcal Vaccination/Date Given: No Travel Risk - International Travel Have you traveled outside of the country in past 3 weeks: No - Coronavirus Screening Are you exhibiting any of the following symptoms?: No Close contact with a COVID-19 positive Pt in past 14-21 Days: No - Vaccine Status Have you recieved a Covid-19 vaccination: No - Review of Systems Constitutional: No Fever, No Chills Eyes: No Symptoms Ears, Nose, & Throat: Ear Pain, Throat Pain, Throat Swelling, Painful Swallowing Respiratory: No Cough, No Dyspnea Cardiac: No Chest Pain, No Edema, No Syncope Abdominal/Gastrointestinal: No Abdominal Pain, No Nausea, No Vomiting, No Diarrhea Genitourinary Symptoms: No Dysuria Musculoskeletal: No Back Pain, No Neck Pain Skin: No Rash Neurological: No Dizziness, No Focal Weakness, No Sensory Changes Psychological: No Symptoms Endocrine: No Symptoms All Other Systems: Reviewed and Negative - Past Medical History Pertinent Past Medical History: Yes Neurological History: No Pertinent History ENT History: No Pertinent History Cardiac History: No Pertinent History Respiratory History: No Pertinent History Endocrine Medical History: No Pertinent History Musculoskeletal History: No Pertinent History GI Medical History: No Pertinent History History: No Pertinent History Psycho-Social History: No Pertinent History Female Reproductive Disorders: Other Other Medical History: MONO. ruptured cyst on ovary - Past Surgical History Past Surgical History: No Neuro Surgical History: No Pertinent History Cardiac: No Pertinent History Respiratory: No Pertinent History Gastrointestinal: No Pertinent History Genitourinary: No Pertinent History Musculoskeletal: No Pertinent History Female Surgical History: No Pertinent History - Social History Smoking Status: Never smoker Exposure to second hand smoke: No Drug Use: none Patient Lives Alone: No - Female History Hx Now: No - Nursing Vital Signs Nursing Vital Signs: Initial Vital Signs Temperature 97.4 F 04/11/21 06:52 Pulse Rate 116 H 04/11/21 06:52 Blood Pressure 140/100 04/11/21 06:52 O2 Sat by Pulse Oximetry 96 04/11/21 06:52 Pain Scale Pain Intensity 10 - Physical Exam General Appearance: no apparent distress, alert Eye Exam: bilateral eye: PERRL, EOMI Ear Exam: bilateral ear: auricle normal, canal normal, TM normal Nasal Exam: normal inspection Throat Exam: moist mucus membranes, pharynx swelling, pharynx tenderness, voice changes, No tonsillar exudate Neck Exam: normal inspection, supple, lymphadenopathy (R), tender lateral Cardiovascular/Respiratory Exam: normal breath sounds, regular rate/rhythm Abdominal Exam: non-tender, soft Neurologic Exam: alert, oriented x 3, sensation nml, No motor deficits Skin Exam: normal color, warm, dry SpO2: 96 - Course Nursing assessment & vital signs reviewed: Yes - CT Exams Soft Tissue Neck CT Interpretation: Tele-radiologist Report, Other (normal epiglottis and retropharngeal area with some salivary and tonsil swelling no abscess) Ordered Tests: Active Orders 24 hr Category Date Time Status IV Insertion STAT Care 04/11/21 07:15 Active Pulse Oximetry (ED) STAT Care 04/11/21 07:15 Active NECK WO CONTRAST [CT] Stat Exams 04/11/21 07:16 Taken CBC W DIFF Stat Lab 04/11/21 07:38 Completed CMP Stat Lab 04/11/21 07:38 Completed [place] Screen Stat Lab 04/11/21 07:38 Completed Medication Summary Discontinued Medications Generic Name Dose Route Start Last Admin Trade Name Warren PRN Reason Stop Dose Admin Acyclovir 800 mg 04/11/21 07:59 04/11/21 08:09 Zovirax 200 Mg PO 04/11/21 08:00 800 mg STAT ONE Administration Acyclovir Confirm 04/11/21 08:03 Zovirax 200 Mg Administered 04/11/21 08:04 Dose 800 mg .ROUTE .STK-MED ONE Amoxicillin/Clavulanate Potassium 875 mg 04/11/21 08:01 04/11/21 08:11 Augmentin 875-125 Tablet PO 04/11/21 08:02 875 mg STAT ONE Administration Amoxicillin/Clavulanate Potassium Confirm 04/11/21 08:11 Augmentin 875-125 Tablet Administered 04/11/21 08:12 Dose 875 mg .ROUTE .STK-MED ONE Dexamethasone Sodium Phosphate 10 mg 04/11/21 07:18 04/11/21 07:23 Decadron 10mg Inj. IV 04/11/21 07:19 10 mg STAT ONE Administration Dexamethasone Sodium Phosphate Confirm 04/11/21 07:21 Decadron 10mg Inj. Administered 04/11/21 07:22 Dose 10 mg .ROUTE .STK-MED ONE Hydromorphone HCl 0.5 mg 04/11/21 07:57 04/11/21 08:10 Hydromorphone 1 Mg/Ml Injection IV 04/11/21 07:58 0.5 mg STAT ONE Administration Hydromorphone HCl Confirm 04/11/21 08:04 Hydromorphone 1 Mg/Ml Injection Administered 04/11/21 08:05 Dose 1 mg .ROUTE .STK-MED ONE Sodium Chloride 1,000 mls @ 999 mls/hr 04/11/21 07:15 04/11/21 08:19 Sodium Chloride 0.9% 1000 Ml IV 04/11/21 08:15 Infused .Q1H1M STA Infusion Ceftriaxone Sodium/Dextrose 1 g in 50 mls @ 100 mls/hr 04/11/21 07:17 04/11/21 08:18 Rocephin 1 Gm-D5w 50 Ml Bag IV 04/11/21 07:46 Infused STAT STA Infusion Sodium Chloride Confirm 04/11/21 07:21 Sodium Chloride 0.9% 1000 Ml Administered 04/11/21 07:22 Dose 1,000 mls @ ud .ROUTE .STK-MED ONE Ceftriaxone Sodium/Dextrose Confirm 04/11/21 07:21 Rocephin 1 Gm-D5w 50 Ml Bag Administered 04/11/21 07:22 Dose 1 g in 50 mls @ ud IV .STK-MED ONE Ondansetron HCl 4 mg 04/11/21 07:59 04/11/21 08:09 Zofran 4 Mg/2 Ml Vial IV 04/11/21 08:00 4 mg STAT ONE Administration Ondansetron HCl Confirm 04/11/21 08:03 Zofran 4 Mg/2 Ml Vial Administered 04/11/21 08:04 Dose 4 mg .ROUTE .STK-MED ONE Phenol 1 ml 04/11/21 08:00 04/11/21 08:18 Chloraseptic [place] 180 Ml PO 04/11/21 08:01 1 ml STAT ONE Administration Lab/Rad Data: Laboratory Result Diagrams 04/11/21 07:38 04/11/21 07:38 Laboratory Results 04/11/21 04/11/21 04/11/21 Range/Units 07:38 07:38 07:38 WBC (4.0-10.5) K/mm3 RBC (4.1-5.4) M/mm3 Hgb (12.0-16.0) gm/dl Hct (35-47) % MCV (78-100) fl MCH (26-32) pg MCHC (32-36) g/dl RDW (11.5-14.0) % Plt Count (150-450) K/mm3 MPV (7.5-11.0) fl Gran % (36.0-66.0) % Eos # (Auto) (0-0.5) Absolute Lymphs (auto) (1.0-4.6) Absolute Monos (auto) (0.0-1.3) Lymphocytes % (24.0-44.0) % Monocytes % (0.0-12.0) % Eosinophils % (0.00-5.0) % Basophils % (0.0-0.4) % Absolute Granulocytes (1.4-6.9) Basophils # (0-0.4) Sodium 136 L (137-145) mmol/L Potassium 3.9 (3.5-5.1) mmol/L Chloride 105 (98-107) mmol/L Carbon Dioxide 23 (22-30) mmol/L Anion Gap 11.9 (5-15) MEQ/L BUN 7 (7-17) mg/dL Creatinine 0.54 (0.52-1.04) mg/dL Estimated GFR > 60.0 ML/MIN Glucose 95 (74-106) mg/dL Calcium 8.8 (8.4-10.2) mg/dL Total Bilirubin 0.80 (0.2-1.3) mg/dL AST 25 (14-36) U/L ALT 13 (0-35) U/L Alkaline Phosphatase 64 (38-126) U/L Serum Total Protein 6.4 (6.3-8.2) g/dL Albumin 3.7 (3.5-5.0) g/dL Monoscreen NEGATIVE (Negative) Group A Strep Antibody DETECTED (NEGATIVE) Slides for Path Review 04/11/21 Range/Units 07:38 WBC 11.1 H (4.0-10.5) K/mm3 RBC 3.75 L (4.1-5.4) M/mm3 Hgb 10.7 L (12.0-16.0) gm/dl Hct 34.7 L (35-47) % MCV 92.5 (78-100) fl MCH 28.5 (26-32) pg MCHC 30.8 L (32-36) g/dl RDW 13.7 (11.5-14.0) % Plt Count 186 (150-450) K/mm3 MPV 11.2 H (7.5-11.0) fl Gran % 90.2 H (36.0-66.0) % Eos # (Auto) 0.06 (0-0.5) Absolute Lymphs (auto) 0.37 L (1.0-4.6) Absolute Monos (auto) 0.64 (0.0-1.3) Lymphocytes % 3.3 L (24.0-44.0) % Monocytes % 5.8 (0.0-12.0) % Eosinophils % 0.5 (0.00-5.0) % Basophils % 0.2 (0.0-0.4) % Absolute Granulocytes 10.04 H (1.4-6.9) Basophils # 0.02 (0-0.4) Sodium (137-145) mmol/L Potassium (3.5-5.1) mmol/L Chloride (98-107) mmol/L Carbon Dioxide (22-30) mmol/L Anion Gap (5-15) MEQ/L BUN (7-17) mg/dL Creatinine (0.52-1.04) mg/dL Estimated GFR ML/MIN Glucose (74-106) mg/dL Calcium (8.4-10.2) mg/dL Total Bilirubin (0.2-1.3) mg/dL AST (14-36) U/L ALT (0-35) U/L Alkaline Phosphatase (38-126) U/L Serum Total Protein (6.3-8.2) g/dL Albumin (3.5-5.0) g/dL Monoscreen (Negative) Group A Strep Antibody (NEGATIVE) Slides for Path Review YES - Progress Progress: improved, re-examined Progress Note: 04/11/21 09:15 swallowing OK in ER with fluids and pills. Counseled pt/family regarding: lab results, diagnosis, need for follow-up, rad results - Departure Departure Disposition: Home Clinical Impression: Strep pharyngitis, Salivary gland infection, Infection of tonsil Condition: Good Critical Care Time: No Referrals: CHRISTIAN DAHL NP [Primary Care Provider] - Instructions: Strep Throat (DC), Salivary Gland Infection (DC), Sore Throat, Adult (DC) Additional Instructions: ALthough the radiology reading did not yet see an abscess, there is swelling around the tonsil which could progress to an abscess - so followup with your Dr is important this week/tomorrow. Return meantime if not improving , high fever, vomiting, increasing swallowing difficulties or other concerns. Prescriptions: Amox Tr/Potass Clav. 875 mg [Augmentin 875-125 Tablet] 875 mg PO BID #20 tablet
[2021-04-11] MEDS ORDERED: Sodium Chloride 0.9% 1000 ML 1,000 ML IV STA (07:15)
[2021-04-11] MEDS ORDERED: ROCEPHIN 1 Gm-D5w 50 ml Bag** 1 G/50 ML IVPB IV STA (07:17)
[2021-04-11] MEDS ORDERED: DECADRON 10MG INJ. IV ONE (07:18)
[2021-04-11] MEDS ORDERED: ROCEPHIN 1 Gm-D5w 50 ml Bag** 1 G/50 ML IVPB IV ONE (07:21)
[2021-04-11] MEDS ORDERED: Sodium Chloride 0.9% 1000 ML 1,000 ML ONE (07:21)
[2021-04-11] MEDS ORDERED: DECADRON 10MG INJ. ONE (07:21)
[2021-04-11 07:44] VITALS: O2SAT 96
[2021-04-11 07:45] LABS: Absolute Neutrophil Ct (ANC) 10.04 (1.4-6.9); BASOPHIL % 0.2 % (0.0-0.4); Basophil (Absolute #) 0.02 (0-0.4); Eosinophil % 0.5 % (0.00-5.0); Eosinophil (Absolute #) 0.06 (0-0.5); Hematocrit 34.7 % (35-47); Hemoglobin 10.7 gm/dl (12.0-16.0); Lymphocyte (Absolute #) 0.37 (1.0-4.6); Lymphocytes % 3.3 % (24.0-44.0); Mean Cell Volume 92.5 fl (78-100); Mean Corpuscular Hemoglobin 28.5 pg (26-32); Mean Corpuscular Hgb Concent. 30.8 g/dl (32-36); Mean Platelet Volume 11.2 fl (7.5-11.0); Monocyte (Absolute #) 0.64 (0.0-1.3); Monocytes % 5.8 % (0.0-12.0); Neutrophil % 90.2 % (36.0-66.0); Platelet Count 186 K/mm3 (150-450); Red Blood Count 3.75 M/mm3 (4.1-5.4); Red Cell Distribution Width 13.7 % (11.5-14.0); White Blood Count 11.1 K/mm3 (4.0-10.5)
[2021-04-11 07:51] LABS: ALBUMIN 3.7 g/dL (3.5-5.0); ALKALINE PHOSPHATASE 64 U/L (38-126); ANION GAP 11.9 MEQ/L (5-15); BLOOD UREA NITROGEN 7 mg/dL (7-17); CHLORIDE 105 mmol/L (98-107); Calcium 8.8 mg/dL (8.4-10.2); Carbon Dioxide 23 mmol/L (22-30); Creatinine 1 0.54 mg/dL (0.52-1.04); EST GLOMERULAR FILTRATION RATE > 60.0 ML/MIN; Glucose 95 mg/dL (74-106); Potassium 3.9 mmol/L (3.5-5.1); SGOT/AST 25 U/L (14-36); SGPT/ALT 13 U/L (0-35); SODIUM 136 mmol/L (137-145); Total Protein 6.4 g/dL (6.3-8.2)
[2021-04-11] MEDS ORDERED: Hydromorphone 1 mg/ml Injection IV ONE (07:57)
[2021-04-11] MEDS ORDERED: ZOVIRAX 200 MG PO ONE (07:59)
[2021-04-11] MEDS ORDERED: Zofran 4 MG/2 ML VIAL IV ONE (07:59)
[2021-04-11] MEDS ORDERED: CHLORASEPTIC SPRAY 180 ML PO ONE (08:00)
[2021-04-11] MEDS ORDERED: Augmentin 875-125 Tablet PO ONE (08:01)
[2021-04-11] MEDS ORDERED: Zofran 4 MG/2 ML VIAL ONE (08:03)
[2021-04-11] MEDS ORDERED: ZOVIRAX 200 MG ONE (08:03)
[2021-04-11] MEDS ORDERED: Hydromorphone 1 mg/ml Injection ONE (08:04)
[2021-04-11] MEDS ORDERED: Augmentin 875-125 Tablet ONE (08:11)
[2021-04-11 08:21] VITALS: BP 129/81; PULSE 97
[2021-04-11 09:01] LABS: Slide Review 1 YES
[2021-04-11] MEDS ORDERED: XYLOCAINE VISCOUS 2% 20 ML CUP PO ONE (09:14)
[2021-04-11] MEDS ORDERED: XYLOCAINE HCl Viscous ONE (09:17)
--- NOTE | 2021-04-11 18:38 | XRAY ---
Indication: Sore throat. Neck swelling/lumps. Multiple contiguous axial images obtained through the neck without contrast. Cutaneous BBs placed over the region of swelling/lumps. Comparison: None A few right dental amalgams produces beam artifact limiting this level. Left and right cutaneous BB seen submandibular in location where there is slight asymmetric enlargement of the left submandibular gland without sialolithiasis. Sialoadenitis not completely excluded. Parotid glands and thyroid gland unremarkable for noncontrast exam. Elsewhere scattered centimeter/subcentimeter cervical and submandibular lymph nodes bilaterally. Slightly enlarged palatine tonsils slightly narrows the oropharynx. Supra and infraglottic airway widely patent. Normal epiglottis. Cervical spine intact. Base of the brain and lung apices unremarkable. Impression: 1. Asymmetric enlargement left sub-manubrial gland without sialolithiasis. Rule out sialoadenitis. 2. Enlarged palatine tonsils. 3. Centimeter/subcentimeter cervical and submandibular lymph nodes presumably reactive. Comment: Preliminary interpretation was made by [facility]. No critical discrepancy.
== END 2021-04-11 09:39 | disposition home or self-care (01) ==
LOC: ED 06:50
DX: K11.9 Disease of salivary gland, unspecified (principal); J03.90 Acute tonsillitis, unspecified
CPT/HCPCS: 36415; 70490; 80053; 85025; 86308; 87651; 94760; 96360; 96365; 96374; 96375; 99285; J0696; J1100; J1170; J2405; A9270-GY

== ENCOUNTER 2021-07-11 09:07 | Emergency (ER) | payer BC ==
[2021-07-11] MEDS ORDERED: Sodium Chloride 0.9% 1000 ML 1,000 ML IV STA (09:22)
[2021-07-11] MEDS ORDERED: Zofran 4 MG/2 ML VIAL IV ONE (09:22)
[2021-07-11] MEDS ORDERED: Zofran 4 MG/2 ML VIAL ONE (09:23)
[2021-07-11] MEDS ORDERED: Sodium Chloride 0.9% 1000 ML 1,000 ML ONE (09:23)
[2021-07-11] MEDS ORDERED: TORAdol 30 mg Injection IV ONE (09:40)
[2021-07-11] MEDS ORDERED: Pepcid 20 MG VIAL IV ONE ×2 (09:40→09:56)
[2021-07-11] MEDS ORDERED: TORAdol 30 mg Injection ONE (09:41)
[2021-07-11 09:54] LABS: Appearance CLEAR (CLEAR); Bilirubin NEGATIVE (NEGATIVE); Blood LARGE Ery/ul (0-5); Glucose NEGATIVE (NEGATIVE); Ketones NEGATIVE (NEGATIVE); Leukocyte Esterase NEGATIVE (NEGATIVE); Nitrite NEGATIVE (NEGATIVE); Protein,Urine Dip NEGATIVE (Negative); RBC 0-2 /HPF (0-2); Specific Gravity 1.002 (1.005-1.025); Urobilinogen NEGATIVE mg/dL (0-1)
[2021-07-11 10:06] LABS: BASOPHIL % 0.3 % (0.0-0.4); Basophil (Absolute #) 0.01 (0-0.4); Eosinophil % 1.2 % (0.00-5.0); Eosinophil (Absolute #) 0.04 (0-0.5); Hemoglobin 11.6 gm/dl (12.0-16.0); Lymphocyte (Absolute #) 0.89 (1.0-4.6); Mean Cell Volume 89.8 fl (78-100); Mean Corpuscular Hemoglobin 27.4 pg (26-32); Mean Corpuscular Hgb Concent. 30.5 g/dl (32-36); Mean Platelet Volume 12.1 fl (7.5-11.0); Monocyte (Absolute #) 0.56 (0.0-1.3); Neutrophil % 54.5 % (36.0-66.0); Platelet Count 186 K/mm3 (150-450); Red Blood Count 4.23 M/mm3 (4.1-5.4); Red Cell Distribution Width 13.9 % (11.5-14.0); White Blood Count 3.3 K/mm3 (4.0-10.5)
[2021-07-11 10:47] LABS: ALBUMIN 4.1 g/dL (3.5-5.0); ALKALINE PHOSPHATASE 76 U/L (38-126); AMYLASE 77 U/L (30-110); ANION GAP 10.7 MEQ/L (5-15); BLOOD UREA NITROGEN 5 mg/dL (7-17); CHLORIDE 106 mmol/L (98-107); Calcium 8.5 mg/dL (8.4-10.2); Carbon Dioxide 23 mmol/L (22-30); Creatinine 1 0.57 mg/dL (0.52-1.04); EST GLOMERULAR FILTRATION RATE > 60.0 ML/MIN; Glucose 84 mg/dL (74-106); LIPASE 112 U/L (23-300); Potassium 3.9 mmol/L (3.5-5.1); SGOT/AST 30 U/L (14-36); SGPT/ALT 16 U/L (0-35); SODIUM 136 mmol/L (137-145); Total Protein 7.1 g/dL (6.3-8.2)
[2021-07-11] MEDS ORDERED: Sodium Chloride 0.9% 500 ML 500 ML IV ONE ×2 (10:51→10:52)
[2021-07-11 11:04] VITALS: BP 114/80; PULSE 77; O2SAT 98
--- NOTE | 2021-07-11 11:21 | ERPHSYRPT ---
- History of Present Illness Time Seen by Provider: 07/11/21 09:33 Historian: patient Exam Limitations: no limitations Patient Subjective Stated Complaint: Pt states "I tested positive for covid on and have been good until yesterday and now I cannot keep anything down and I hurt all over." Triage Nursing Assessment: Pt presented alert and oriented X 3, skin wpd tp ambulates with an upright steady gait, able to speak in clear full sentences pt in no apparent respriatory distress. Physician History: 31 years old female presented in the ER with chief complaint of aches and pains all over since yesterday along with vomiting and diarrhea. Patient reports she has a positive exposure with known COVID-19 and did tested +3 days ago. Complaining of multiple episodes of nonprojectile, nonbilious vomiting and loose stool and feels weak fatigued tired and dehydrated. Having off-and-on headache. No fever. Timing/Duration: yesterday, intermittent, gradual onset, worse Severity of Pain-Current: none Associated Symptoms: back, fever/chills, fatigue, headache, nausea, vomiting, weakness, No shortness of breath Allergies/Adverse Reactions: No Known Drug Allergies Allergy (Verified 04/11/21 06:59) Hx Tetanus, Diphtheria Vaccination/Date Given: Yes Hx Influenza Vaccination/Date Given: No Hx Pneumococcal Vaccination/Date Given: No Immunizations Up to Date: Yes Travel Risk - International Travel Have you traveled outside of the country in past 3 weeks: No - Coronavirus Screening Are you exhibiting any of the following symptoms?: No Close contact with a COVID-19 positive Pt in past 14-21 Days: No - Vaccine Status Have you recieved a Covid-19 vaccination: No - Review of Systems Constitutional: Fatigue, Weakness Eyes: No Symptoms Ears, Nose, & Throat: No Symptoms Respiratory: No Symptoms Cardiac: No Symptoms Abdominal/Gastrointestinal: Nausea, Vomiting, Diarrhea Genitourinary Symptoms: No Symptoms Musculoskeletal: Myalgias Skin: No Symptoms Neurological: Headache Psychological: No Symptoms Endocrine: No Symptoms Hematologic/Lymphatic: No Symptoms Immunological/Allergic: No Symptoms - Past Medical History Pertinent Past Medical History: Yes Neurological History: No Pertinent History ENT History: No Pertinent History Cardiac History: No Pertinent History Respiratory History: No Pertinent History Endocrine Medical History: No Pertinent History Musculoskeletal History: No Pertinent History GI Medical History: No Pertinent History History: No Pertinent History Psycho-Social History: No Pertinent History Female Reproductive Disorders: Other Other Medical History: MONO. ruptured cyst on ovary - Past Surgical History Past Surgical History: No Neuro Surgical History: No Pertinent History Cardiac: No Pertinent History Respiratory: No Pertinent History Gastrointestinal: No Pertinent History Genitourinary: No Pertinent History Musculoskeletal: No Pertinent History Female Surgical History: No Pertinent History - Social History Smoking Status: Never smoker Exposure to second hand smoke: No Drug Use: none Patient Lives Alone: No - Female History Hx Last Menstrual Period: 07/10/2021 Hx Now: No - Nursing Vital Signs Nursing Vital Signs: Initial Vital Signs Temperature 98.1 F 07/11/21 09:15 Pulse Rate 86 07/11/21 09:15 Respiratory Rate 20 07/11/21 09:15 Blood Pressure 131/91 07/11/21 09:15 O2 Sat by Pulse Oximetry 99 07/11/21 09:15 Pain Scale Pain Intensity 5 - Physical Exam General Appearance: no apparent distress, alert Eye Exam: PERRL/EOMI, eyes nml inspection Ears, Nose, Throat Exam: TMs normal, pharyngeal erythema Neck Exam: normal inspection, non-tender, supple, full range of motion Respiratory Exam: normal breath sounds, lungs clear Cardiovascular Exam: regular rate/rhythm, normal heart sounds Gastrointestinal/Abdomen Exam: soft, normal bowel sounds, No tenderness Back Exam: normal inspection, normal range of motion Extremity Exam: normal inspection, normal range of motion Neurologic Exam: alert, oriented x 3, cooperative Skin Exam: normal color SpO2 Interpretation: normal SpO2: 98 O2 Delivery: Room Air Ordered Tests: Active Orders 24 hr Category Date Time Status AMYLASE Stat Lab 07/11/21 09:40 Completed CBC W DIFF Stat Lab 07/11/21 09:40 Completed CMP Stat Lab 07/11/21 09:40 Completed HCG,QUALITATIVE URINE Stat Lab 07/11/21 09:46 Completed LIPASE Stat Lab 07/11/21 09:40 Completed UA W/RFX UR CULTURE Stat Lab 07/11/21 09:46 Completed Medication Summary Discontinued Medications Generic Name Dose Route Start Last Admin Trade Name Freq PRN Reason Stop Dose Admin Famotidine 20 mg 07/11/21 09:40 07/11/21 09:57 Pepcid 20 Mg Vial IV 07/11/21 09:41 20 mg STAT ONE Administration Famotidine Confirm 07/11/21 09:56 Pepcid 20 Mg Vial Administered 07/11/21 09:57 Dose 20 mg IV .STK-MED ONE Sodium Chloride 1,000 mls @ 999 mls/hr 07/11/21 09:22 07/11/21 10:46 Sodium Chloride 0.9% 1000 Ml IV 07/11/21 10:22 Infused .Q1H1M STA Infusion Sodium Chloride Confirm 07/11/21 09:23 Sodium Chloride 0.9% 1000 Ml Administered 07/11/21 09:24 Dose 1,000 mls @ ud .ROUTE .STK-MED ONE Sodium Chloride 500 mls @ 500 mls/hr 07/11/21 10:51 07/11/21 10:53 Sodium Chloride 0.9% 500 Ml IV 07/11/21 11:50 500 mls/hr .Q1H ONE Administration Sodium Chloride Confirm 07/11/21 10:52 Sodium Chloride 0.9% 500 Ml Administered 07/11/21 10:53 Dose 500 mls @ ud IV .STK-MED ONE Ketorolac Tromethamine 30 mg 07/11/21 09:40 07/11/21 09:47 Toradol 30 Mg Injection IV 07/11/21 09:41 30 mg STAT ONE Administration Ketorolac Tromethamine Confirm 07/11/21 09:41 Toradol 30 Mg Injection Administered 07/11/21 09:42 Dose 30 mg .ROUTE .STK-MED ONE Ondansetron HCl 4 mg 07/11/21 09:22 07/11/21 09:25 Zofran 4 Mg/2 Ml Vial IV 07/11/21 09:23 4 mg STAT ONE Administration Ondansetron HCl Confirm 07/11/21 09:23 Zofran 4 Mg/2 Ml Vial Administered 07/11/21 09:24 Dose 4 mg .ROUTE .STK-MED ONE Lab/Rad Data: Laboratory Result Diagrams 07/11/21 09:40 07/11/21 09:40 Laboratory Results 07/11/21 07/11/21 07/11/21 Range/Units 09:46 09:46 09:40 WBC (4.0-10.5) K/mm3 RBC (4.1-5.4) M/mm3 Hgb (12.0-16.0) gm/dl Hct (35-47) % MCV (78-100) fl MCH (26-32) pg MCHC (32-36) g/dl RDW (11.5-14.0) % Plt Count (150-450) K/mm3 MPV (7.5-11.0) fl Gran % (36.0-66.0) % Eos # (Auto) (0-0.5) Absolute Lymphs (auto) (1.0-4.6) Absolute Monos (auto) (0.0-1.3) Lymphocytes % (24.0-44.0) % Monocytes % (0.0-12.0) % Eosinophils % (0.00-5.0) % Basophils % (0.0-0.4) % Absolute Granulocytes (1.4-6.9) Basophils # (0-0.4) Sodium 136 L (137-145) mmol/L Potassium 3.9 (3.5-5.1) mmol/L Chloride 106 (98-107) mmol/L Carbon Dioxide 23 (22-30) mmol/L Anion Gap 10.7 (5-15) MEQ/L BUN 5 L (7-17) mg/dL Creatinine 0.57 (0.52-1.04) mg/dL Estimated GFR > 60.0 ML/MIN Glucose 84 (74-106) mg/dL Calcium 8.5 (8.4-10.2) mg/dL Total Bilirubin 0.30 (0.2-1.3) mg/dL AST 30 (14-36) U/L ALT 16 (0-35) U/L Alkaline Phosphatase 76 (38-126) U/L Serum Total Protein 7.1 (6.3-8.2) g/dL Albumin 4.1 (3.5-5.0) g/dL Amylase 77 (30-110) U/L Lipase 112 (23-300) U/L Urine Color COLORLESS (YELLOW) Urine Appearance CLEAR (CLEAR) Urine pH 6.0 (5-6) Ur Specific [place] 1.002 (1.005-1.025) Urine Protein NEGATIVE (Negative) Urine Ketones NEGATIVE (NEGATIVE) Urine Blood LARGE (0-5) Dennis/ul Urine Nitrite NEGATIVE (NEGATIVE) Urine Bilirubin NEGATIVE (NEGATIVE) Urine Urobilinogen NEGATIVE (0-1) mg/dL Ur Leukocyte Esterase NEGATIVE (NEGATIVE) Urine WBC (Auto) NONE (0-5) /HPF Urine RBC (Auto) 0-2 (0-2) /HPF U Epithel Cells (Auto) NONE (FEW) /HPF Urine Bacteria (Auto) NONE (NEGATIVE) /HPF Urine Culture Reflexed NO (NO) Urine Glucose NEGATIVE (NEGATIVE) mg/dL Urine HCG, Qual NEGATIVE (Negative) 07/11/21 Range/Units 09:40 WBC 3.3 L (4.0-10.5) K/mm3 RBC 4.23 (4.1-5.4) M/mm3 Hgb 11.6 L (12.0-16.0) gm/dl Hct 38.0 (35-47) % MCV 89.8 (78-100) fl MCH 27.4 (26-32) pg MCHC 30.5 L (32-36) g/dl RDW 13.9 (11.5-14.0) % Plt Count 186 (150-450) K/mm3 MPV 12.1 H (7.5-11.0) fl Gran % 54.5 (36.0-66.0) % Eos # (Auto) 0.04 (0-0.5) Absolute Lymphs (auto) 0.89 L (1.0-4.6) Absolute Monos (auto) 0.56 (0.0-1.3) Lymphocytes % 27.0 (24.0-44.0) % Monocytes % 17.0 H (0.0-12.0) % Eosinophils % 1.2 (0.00-5.0) % Basophils % 0.3 (0.0-0.4) % Absolute Granulocytes 1.80 (1.4-6.9) Basophils # 0.01 (0-0.4) Sodium (137-145) mmol/L Potassium (3.5-5.1) mmol/L Chloride (98-107) mmol/L Carbon Dioxide (22-30) mmol/L Anion Gap (5-15) MEQ/L BUN (7-17) mg/dL Creatinine (0.52-1.04) mg/dL Estimated GFR ML/MIN Glucose (74-106) mg/dL Calcium (8.4-10.2) mg/dL Total Bilirubin (0.2-1.3) mg/dL AST (14-36) U/L ALT (0-35) U/L Alkaline Phosphatase (38-126) U/L Serum Total Protein (6.3-8.2) g/dL Albumin (3.5-5.0) g/dL Amylase (30-110) U/L Lipase (23-300) U/L Urine Color (YELLOW) Urine Appearance (CLEAR) Urine pH (5-6) Ur Specific [place] (1.005-1.025) Urine Protein (Negative) Urine Ketones (NEGATIVE) Urine Blood (0-5) Dennis/ul Urine Nitrite (NEGATIVE) Urine Bilirubin (NEGATIVE) Urine Urobilinogen (0-1) mg/dL Ur Leukocyte Esterase (NEGATIVE) Urine WBC (Auto) (0-5) /HPF Urine RBC (Auto) (0-2) /HPF U Epithel Cells (Auto) (FEW) /HPF Urine Bacteria (Auto) (NEGATIVE) /HPF Urine Culture Reflexed (NO) Urine Glucose (NEGATIVE) mg/dL Urine HCG, Qual (Negative) - Progress Progress: improved Progress Note: 07/11/21 11:19 She is given fluids and symptomatic treatment, on reevaluation feeling better. Do not think she needs any imaging or work-up, recommended supportive care. Discussed signs symptoms of worsening needing return to ER which he seems understanding. Stable for discharge. Counseled pt/family regarding: lab results, diagnosis, need for follow-up - Departure Departure Disposition: Home Clinical Impression: Viral gastroenteritis, COVID-19 Condition: Stable Critical Care Time: No Referrals: CHRISTIAN DAHL, YURY [Primary Care Provider] - Follow Up with PCP/3 days Instructions: Viral Gastroenteritis, Coronavirus Disease 2019 (COVID-19) (DC) Additional Instructions: Take Tylenol/Zofran as needed. Drink plenty of fluids to keep yourself well- hydrated. Follow-up contact/droplet precautions for COVID-19. Return to ER for intractable vomiting/fever chills or if develop shortness of breath etc. Prescriptions: Ondansetron ODT 4 MG [Zofran Odt 4 mg] 4 mg PO Q6H PRN PRN #10 tablet PRN Reason: Vomiting
== END 2021-07-11 11:36 | disposition home or self-care (01) ==
LOC: ED 09:07
DX: A08.4 Viral intestinal infection, unspecified (principal); U07.1 COVID-19; R50.9 Fever, unspecified; R53.83 Other fatigue; R51.9 Headache, unspecified
CPT/HCPCS: 36000; 36415; 80053; 81001; 82150; 83690; 84703; 85025; 96360; 96374; 96375; 99284; J1885; J2405

== ENCOUNTER 2022-05-12 12:59 | Emergency (ER) | payer MEDICAID ==
[2022-05-12] MEDS ORDERED: Sodium Chloride 0.9% 1000 ML 1,000 ML IV STA (13:17)
[2022-05-12] MEDS ORDERED: Sodium Chloride 0.9% 1000 ML 1,000 ML ONE (13:20)
[2022-05-12 13:36] LABS: Absolute Neutrophil Ct (ANC) 3.33 x10^3/uL (1.4-6.9); Basophil (Absolute #) 0.02 x10^3/uL (0-0.4); Eosinophil % 0.8 % (0.00-5.0); Eosinophil (Absolute #) 0.04 x10^3/uL (0-0.5); Hematocrit 32.7 % (35-47); Hemoglobin 10.4 g/dL (12.0-16.0); Lymphocyte (Absolute #) 1.43 x10^3/uL (1.0-4.6); Lymphocytes % 27.5 % (24.0-44.0); Mean Cell Volume 86.3 fL (78-100); Mean Corpuscular Hemoglobin 27.4 pg (26-32); Mean Corpuscular Hgb Concent. 31.8 g/dL (32-36); Mean Platelet Volume 11.2 fL (7.5-11.0); Monocyte (Absolute #) 0.37 x10^3/uL (0.0-1.3); Monocytes % 7.1 % (0.0-12.0); Platelet Count 245 x10^3/uL (150-450); Red Blood Count 3.79 x10^6/uL (4.1-5.4); Red Cell Distribution Width 14.6 % (11.5-14.0); White Blood Count 5.2 x10^3/uL (4.0-10.5)
[2022-05-12 13:45] LABS: Bacteria RARE /HPF (NEGATIVE); Epithelial Cells RARE /HPF (FEW); WBC 0-2 /HPF (0-5)
[2022-05-12 13:46] LABS: Appearance CLEAR (CLEAR); Bilirubin NEGATIVE (NEGATIVE); Glucose NEGATIVE (NEGATIVE); Ketones TRACE (NEGATIVE); Nitrite NEGATIVE (NEGATIVE); Ph 5.5 (5-6); Protein,Urine Dip NEGATIVE (Negative); RBC NEGATIVE Ery/ul (0-5); Urobilinogen 0.2 mg/dL (0-1)
[2022-05-12 13:47] LABS: Dipstick done @ ? MAIN LAB; Urine Cultured Indicated? NO
[2022-05-12] MEDS ORDERED: TYLENOL 325 MG PO ONE (13:47)
[2022-05-12] MEDS ORDERED: TYLENOL 325 MG ONE (13:49)
--- NOTE | 2022-05-12 14:01 | ERPHSYRPT ---
- History of Present Illness Time Seen by Provider: 05/12/22 13:07 Patient Subjective Stated Complaint: PT states "I just found out I was and I have not even had my first appointment with Dr. Kemp yet and I am ble eding a little." Triage Nursing Assessment: Pt presented alert and oriented X 3, skin pwd Pt ambulates with an upright steady gait, able to speak in clear full sentences pt in no apparent respiratory distress. Physician History: 32 years old 4 para 3 at almost 5 weeks gestation per LMP presented in the ER with sudden onset pelvic pain this morning intermittent, mild to moderate sharp cramping without any significant aggravating or relieving factors, last for few seconds to minutes and improves. Reports associated increased urinary frequency for the last couple of weeks. She wiped earlier this morning and noticed some spotting. Does report having intercourse last night.. Timing/Duration: today, intermittent, worse Activites at Onset: sleep Quality: sharpness Onset Location: pelvic pain Pain Radiation: back Severity of Pain-Max: moderate Severity of Pain-Current: mild Prior abdominal problems: none Modifying Factors: Improves With: nothing Associated Symptoms: urinary frequency, Allergies/Adverse Reactions: No Known Drug Allergies Allergy (Verified 04/11/21 06:59) Home Medications: Vit37/Iron/Folic Acid [Prenata Chewable Tablet] 1 each PO DAILY 05/12/22 [History] Hx Tetanus, Diphtheria Vaccination/Date Given: Yes Hx Influenza Vaccination/Date Given: No Hx Pneumococcal Vaccination/Date Given: No Travel Risk - International Travel Have you traveled outside of the country in past 3 weeks: No - Coronavirus Screening Are you exhibiting any of the following symptoms?: No Close contact with a COVID-19 positive Pt in past 14-21 Days: No - Vaccine Status Have you recieved a Covid-19 vaccination: No - Review of Systems Constitutional: No Symptoms Eyes: No Symptoms Ears, Nose, & Throat: No Symptoms Respiratory: No Symptoms Cardiac: No Symptoms Abdominal/Gastrointestinal: Abdominal Pain Genitourinary Symptoms: Frequency, Vaginal Bleeding Musculoskeletal: No Symptoms Skin: No Symptoms Neurological: No Symptoms Endocrine: No Symptoms Hematologic/Lymphatic: No Symptoms Immunological/Allergic: No Symptoms - Past Medical History Pertinent Past Medical History: Yes Neurological History: No Pertinent History ENT History: No Pertinent History Cardiac History: No Pertinent History Respiratory History: No Pertinent History Endocrine Medical History: No Pertinent History Musculoskeletal History: No Pertinent History GI Medical History: No Pertinent History History: No Pertinent History Psycho-Social History: No Pertinent History Female Reproductive Disorders: Other Other Medical History: MONO. ruptured cyst on ovary - Past Surgical History Past Surgical History: No Neuro Surgical History: No Pertinent History Cardiac: No Pertinent History Respiratory: No Pertinent History Gastrointestinal: No Pertinent History Genitourinary: No Pertinent History Musculoskeletal: No Pertinent History Female Surgical History: No Pertinent History - Social History Smoking Status: Never smoker Exposure to second hand smoke: No Drug Use: none Patient Lives Alone: No - Female History Hx Last Menstrual Period: 04/10/2022 Hx Now: Yes - Nursing Vital Signs Nursing Vital Signs: Initial Vital Signs Temperature 98.6 F 05/12/22 13:05 Pulse Rate 88 05/12/22 13:05 Respiratory Rate 20 05/12/22 13:05 Blood Pressure 128/82 05/12/22 13:05 O2 Sat by Pulse Oximetry 100 05/12/22 13:05 Pain Scale Pain Intensity 0 - Physical Exam General Appearance: no apparent distress, alert Eye Exam: PERRL/EOMI Ears, Nose, Throat Exam: normal ENT inspection, pharynx normal, moist mucous membranes Neck Exam: normal inspection, full range of motion Respiratory Exam: normal breath sounds, lungs clear Cardiovascular Exam: regular rate/rhythm, normal heart sounds Gastrointestinal/Abdomen Exam: soft, normal bowel sounds, tenderness (Suprapubic/left lower quadrant without guarding or rebound tenderness) Back Exam: normal inspection, normal range of motion Extremity Exam: normal inspection, normal range of motion Neurologic Exam: alert, oriented x 3, cooperative Skin Exam: normal color SpO2 Interpretation: normal SpO2: 100 O2 Delivery: Room Air Ordered Tests: Active Orders 24 hr Category Date Time Status IV Insertion STAT Care 05/12/22 13:17 Active OB <14 WKS 1ST GESTATION [US] Stat Exams 05/12/22 13:58 Completed CBC W DIFF Stat Lab 05/12/22 13:34 Completed CMP Stat Lab 05/12/22 13:30 Completed HCG QUALITATIVE,SERUM Stat Lab 05/12/22 13:30 Completed HCG, Quantitative (Inhouse) Stat Lab 05/12/22 13:30 Completed UA W/RFX CULTURE Stat Lab 05/12/22 13:30 Completed Medication Summary Discontinued Medications Generic Name Dose Route Start Last Admin Trade Name Freq PRN Reason Stop Dose Admin Acetaminophen 975 mg 05/12/22 13:47 05/12/22 13:50 Acetaminophen 325 Mg Tablet PO 05/12/22 13:48 975 mg STAT ONE Administration Acetaminophen Confirm 05/12/22 13:49 Acetaminophen 325 Mg Tablet Administered 05/12/22 13:50 Dose 975 mg .ROUTE .STK-MED ONE Sodium Chloride 1,000 mls @ 999 mls/hr 05/12/22 13:17 05/12/22 14:33 Sodium Chloride 0.9% 1000 Ml IV 05/12/22 14:17 Infused .Q1H1M STA Infusion Sodium Chloride Confirm 05/12/22 13:20 Sodium Chloride 0.9% 1000 Ml Administered 05/12/22 13:21 Dose 1,000 mls @ ud .ROUTE .STK-MED ONE Lab/Rad Data: Laboratory Result Diagrams 05/12/22 13:34 05/12/22 13:30 Laboratory Results 05/12/22 05/12/22 05/12/22 Range/Units 13:34 13:30 13:30 WBC 5.2 (4.0-10.5) x10^3/uL RBC 3.79 L (4.1-5.4) x10^6/uL Hgb 10.4 L (12.0-16.0) g/dL Hct 32.7 L (35-47) % MCV 86.3 (78-100) fL MCH 27.4 (26-32) pg MCHC 31.8 L (32-36) g/dL RDW 14.6 H (11.5-14.0) % Plt Count 245 (150-450) x10^3/uL MPV 11.2 H (7.5-11.0) fL Gran % 64.0 (36.0-66.0) % Immature Gran % (Auto) 0.2 (0.00-0.4) % Nucleat RBC Rel Count 0.0 (0.00-0.1) % Eos # (Auto) 0.04 (0-0.5) x10^3/uL Immature Gran # (Auto) 0.01 (0.00-0.03) x10^3u/L Absolute Lymphs (auto) 1.43 (1.0-4.6) x10^3/uL Absolute Monos (auto) 0.37 (0.0-1.3) x10^3/uL Absolute Nucleated RBC 0.00 (0.00-0.01) x10^3u/L Lymphocytes % 27.5 (24.0-44.0) % Monocytes % 7.1 (0.0-12.0) % Eosinophils % 0.8 (0.00-5.0) % Basophils % 0.4 (0.0-0.4) % Absolute Granulocytes 3.33 (1.4-6.9) x10^3/uL Basophils # 0.02 (0-0.4) x10^3/uL Sodium (137-145) mmol/L Potassium (3.5-5.1) mmol/L Chloride (98-107) mmol/L Carbon Dioxide (22-30) mmol/L Anion Gap (5-15) MEQ/L BUN (7-17) mg/dL Creatinine (0.52-1.04) mg/dL Estimated GFR ML/MIN Glucose (74-106) mg/dL Calcium (8.4-10.2) mg/dL Total Bilirubin (0.2-1.3) mg/dL AST (14-36) U/L ALT (0-35) U/L Alkaline Phosphatase (38-126) U/L Serum Total Protein (6.3-8.2) g/dL Albumin (3.5-5.0) g/dL Beta HCG, Quant mIU/ml Serum , Qual POSITIVE (Negative) Urinalys Dipstick Clnc MAIN LAB Urine Color YELLOW (YELLOW) Urine Appearance CLEAR (CLEAR) Urine pH 5.5 (5-6) Ur Specific [place] 1.020 (1.005-1.025) POC Urine Protein Conf NEGATIVE (Negative) Urine Ketones TRACE (NEGATIVE) Urine Nitrite NEGATIVE (NEGATIVE) Urine Bilirubin NEGATIVE (NEGATIVE) Urine Urobilinogen 0.2 (0-1) mg/dL Urine Leukocytes NEGATIVE (NEGATIVE) Urine WBC (Auto) 0-2 (0-5) /HPF Urine RBC (Auto) NONE (0-2) /HPF U Epithel Cells (Auto) RARE (FEW) /HPF Urine Bacteria (Auto) RARE (NEGATIVE) /HPF Urine RBC NEGATIVE (0-5) Dennis/ul Ur Culture Indicated? NO Urine Glucose NEGATIVE (NEGATIVE) mg/dL ABO Group Rh Factor Antibody Screen (NEGATIVE) 05/12/22 05/12/22 Range/Units 13:30 13:30 WBC (4.0-10.5) x10^3/uL RBC (4.1-5.4) x10^6/uL Hgb (12.0-16.0) g/dL Hct (35-47) % MCV (78-100) fL MCH (26-32) pg MCHC (32-36) g/dL RDW (11.5-14.0) % Plt Count (150-450) x10^3/uL MPV (7.5-11.0) fL Gran % (36.0-66.0) % Immature Gran % (Auto) (0.00-0.4) % Nucleat RBC Rel Count (0.00-0.1) % Eos # (Auto) (0-0.5) x10^3/uL Immature Gran # (Auto) (0.00-0.03) x10^3u/L Absolute Lymphs (auto) (1.0-4.6) x10^3/uL Absolute Monos (auto) (0.0-1.3) x10^3/uL Absolute Nucleated RBC (0.00-0.01) x10^3u/L Lymphocytes % (24.0-44.0) % Monocytes % (0.0-12.0) % Eosinophils % (0.00-5.0) % Basophils % (0.0-0.4) % Absolute Granulocytes (1.4-6.9) x10^3/uL Basophils # (0-0.4) x10^3/uL Sodium 137 (137-145) mmol/L Potassium 3.6 (3.5-5.1) mmol/L Chloride 102 (98-107) mmol/L Carbon Dioxide 24 (22-30) mmol/L Anion Gap 13.5 (5-15) MEQ/L BUN 11 (7-17) mg/dL Creatinine 0.71 (0.52-1.04) mg/dL Estimated GFR > 60.0 ML/MIN Glucose 93 (74-106) mg/dL Calcium 9.5 (8.4-10.2) mg/dL Total Bilirubin 0.60 (0.2-1.3) mg/dL AST 25 (14-36) U/L ALT 16 (0-35) U/L Alkaline Phosphatase 73 (38-126) U/L Serum Total Protein 7.7 (6.3-8.2) g/dL Albumin 4.3 (3.5-5.0) g/dL Beta HCG, Quant 1417.8 mIU/ml Serum , Qual (Negative) Urinalys Dipstick Clnc Urine Color (YELLOW) Urine Appearance (CLEAR) Urine pH (5-6) Ur Specific [place] (1.005-1.025) POC Urine Protein Conf (Negative) Urine Ketones (NEGATIVE) Urine Nitrite (NEGATIVE) Urine Bilirubin (NEGATIVE) Urine Urobilinogen (0-1) mg/dL Urine Leukocytes (NEGATIVE) Urine WBC (Auto) (0-5) /HPF Urine RBC (Auto) (0-2) /HPF U Epithel Cells (Auto) (FEW) /HPF Urine Bacteria (Auto) (NEGATIVE) /HPF Urine RBC (0-5) Dennis/ul Ur Culture Indicated? Urine Glucose (NEGATIVE) mg/dL ABO Group A Rh Factor POSITIVE Antibody Screen NEGATIVE (NEGATIVE) - Progress Progress: improved Air Movement: good Progress Note: 05/12/22 15:14 32 years old is evaluated for spotting and pelvic pain since morning and had a intercourse last night. She is given symptomatic treatment, on reevaluation her pain is resolved. No peritoneal signs. No UTI. Work-up grossly unremarkable and ultrasound obtained which ruled out ectopic and did show gestational sac and early stage [place] around 4 weeks 6 days without heart tones and a hCG quant in 1400s. Recommended pelvic rest, hydration and outpatient follow-up and recheck of hCG quant. Discussed signs symptoms of worsening needing return to ER which she seems understanding. Stable for discharge. Blood Culture(s) Obtained: No Antibiotics given: No Counseled pt/family regarding: lab results, diagnosis, rad results - Departure Departure Disposition: Home Clinical Impression: Pelvic pain affecting , Vaginal spotting Condition: Stable Critical Care Time: No Referrals: CHRISTIAN DAHL NP [Primary Care Provider] - Follow up/PCP as directed (1-2 days for reevaluation) GIL KEMP DO [ACTIVE STAFF] - Follow up/PCP as directed (Call for appointment for reevaluation) Instructions: Bleeding in Early (DC) Additional Instructions: Drink plenty of fluids to keep yourself well-hydrated. Pelvic rest. Follow-up with primary care/OB for reevaluation. Recheck hCG in 2 to 3 days. Return to ER for worsening vaginal bleeding, pelvic cramping etc.
[2022-05-12 14:02] VITALS: PULSE 92
[2022-05-12 14:02] LABS: ALBUMIN 4.3 g/dL (3.5-5.0); ALKALINE PHOSPHATASE 73 U/L (38-126); ANION GAP 13.5 MEQ/L (5-15); BLOOD UREA NITROGEN 11 mg/dL (7-17); CHLORIDE 102 mmol/L (98-107); Calcium 9.5 mg/dL (8.4-10.2); Carbon Dioxide 24 mmol/L (22-30); Creatinine 1 0.71 mg/dL (0.52-1.04); EST GLOMERULAR FILTRATION RATE > 60.0 ML/MIN; Glucose 93 mg/dL (74-106); HCG, Quantitative (Inhouse) 1417.8 mIU/ml; Potassium 3.6 mmol/L (3.5-5.1); SGOT/AST 25 U/L (14-36); SGPT/ALT 16 U/L (0-35); SODIUM 137 mmol/L (137-145); Total Protein 7.7 g/dL (6.3-8.2)
[2022-05-12 14:18] LABS: ABO TYPING A; Antibody Screen NEGATIVE (NEGATIVE); RH TYPING POSITIVE
--- NOTE | 2022-05-12 14:37 | XRAY ---
Indication: Pelvic pain. Two-dimensional transvaginal pelvic sonogram performed. Comparison: June 07, 2018 Uterus again retroflexed. New intrauterine gestational sac measuring 0.32 cm corresponding to 4 weeks 6 days. No pole/heart tones or abnormal subchorionic fluid. Left and right ovaries are sonographically unremarkable. No suspicious adnexal mass or free fluid. Impression: New intrauterine gestational sac measuring 4 weeks 6 days. No pole/heart tones presumed early . Correlate with serial beta-hCG and follow-up sonogram regarding viability.
[2022-05-12 15:05] VITALS: BP 118/63
[2022-05-12 15:17] VITALS: O2SAT 100
== END 2022-05-12 15:24 | disposition home or self-care (01) ==
LOC: ED 12:59
DX: O26.851 Spotting complicating pregnancy, first trimester (principal); Z3A.01 Less than 8 weeks gestation of pregnancy; R10.2 Pelvic and perineal pain; R35.0 Frequency of micturition; Z28.310 Unvaccinated for COVID-19
CPT/HCPCS: 36000; 36415; 76801; 80053; 81015; 84702; 84703; 85025; 86850; 86900; 86901; 96360; 99284; A9270-GY

== ENCOUNTER 2022-07-20 20:58 | Emergency (ER) | payer MEDICAID ==
--- NOTE | 2022-07-20 21:36 | ERPHSYRPT ---
- History of Present Illness Source: patient Exam Limitations: no limitations Patient Subjective Stated Complaint: I was driving and had severe abd pain that would come and go, and about 30 minutes later I had a BM and felt better. I feel alot better now, but still having an occasional stomach cramp. Triage Nursing Assessment: pt ambulated into ER without diff. Pt had abd cramping/pain around 8pm tonight while driving. Pt went home and had bm about 8:30 and felt much better but thought she should get checked out. Pt has slight discomfort to abd at this time, but states, "I feel so much better". Abd soft with active bsx4 quad, nontender on palpation, slight flank pain. Pt is 14w3d , FHT at 158b/min. Physician History: 32 yo wf 14wks presents w abdominal pain described as cramping which began at 20:00 tonight. Pain was a 10 on scale but decreased to a 2 after a bowel movement. She denies vag bleeding/vag dc. FHT 158 per nursing. Pain was generalized. has been uneventful w normal US's performed by Dr. Kemp per pt. N/V/D/dysuria/hematuria are all denied. Timing/Duration: other (Started 20:00) Activites at Onset: other (Riding in car) Quality: cramping Onset Location: other (Generalized abdomen) Pain Radiation: none Severity of Pain-Max: severe Severity of Pain-Current: mild Prior abdominal problems: none Sexual intercourse history: non-contributory Modifying Factors: Improves With: defecating (Pain better w BM) Associated Symptoms: abdominal pain, , No fever, No chills, No diaphoresis, No nausea, No vomiting, No dysuria, No nocturia, No polyuria, No urinary frequency, No loss of bladder control, No lower back pain, No lumps, No mass, No swelling, No syncope, No vaginal discharge, No vaginal fluid leakage Allergies/Adverse Reactions: No Known Drug Allergies Allergy (Verified 07/20/22 21:19) Home Medications: Vit37/Iron/Folic Acid [Prenata Chewable Tablet] 1 each PO DAILY 05/12/22 [History] Iron/C/B12/B6/E/FA/If/Senna Lf [Iro-Plex Liquid] 15 mg PO DAILY 07/20/22 [History] Hx Tetanus, Diphtheria Vaccination/Date Given: Yes Hx Influenza Vaccination/Date Given: No Hx Pneumococcal Vaccination/Date Given: No Travel Risk - International Travel Have you traveled outside of the country in past 3 weeks: No - Coronavirus Screening Are you exhibiting any of the following symptoms?: No Close contact with a COVID-19 positive Pt in past 14-21 Days: No - Vaccine Status Have you recieved a Covid-19 vaccination: No - Review of Systems Constitutional: No Symptoms Eyes: No Symptoms Ears, Nose, & Throat: No Symptoms Respiratory: No Symptoms Cardiac: No Symptoms Abdominal/Gastrointestinal: No Symptoms, Abdominal Pain Genitourinary Symptoms: No Symptoms Musculoskeletal: No Symptoms Skin: No Symptoms Neurological: No Symptoms Psychological: No Symptoms Endocrine: No Symptoms Hematologic/Lymphatic: No Symptoms Immunological/Allergic: No Symptoms - Past Medical History Pertinent Past Medical History: Yes Neurological History: No Pertinent History ENT History: No Pertinent History Cardiac History: No Pertinent History Respiratory History: No Pertinent History Endocrine Medical History: No Pertinent History Musculoskeletal History: No Pertinent History GI Medical History: No Pertinent History History: No Pertinent History Psycho-Social History: No Pertinent History Female Reproductive Disorders: Other Other Medical History: MONO. ruptured cyst on ovary - Past Surgical History Past Surgical History: No Neuro Surgical History: No Pertinent History Cardiac: No Pertinent History Respiratory: No Pertinent History Gastrointestinal: No Pertinent History Genitourinary: No Pertinent History Musculoskeletal: No Pertinent History Female Surgical History: No Pertinent History - Social History Smoking Status: Current every day smoker Exposure to second hand smoke: No Drug Use: none Patient Lives Alone: No Significant Family History: no pertinent family hx - Female History Hx Now: Yes Expected Date of Delivery: 01/15/23 Gestational Age: 14w3d - Nursing Vital Signs Nursing Vital Signs: Initial Vital Signs Temperature 97.6 F 07/20/22 21:06 Pulse Rate 78 07/20/22 21:06 Respiratory Rate 16 07/20/22 21:06 Blood Pressure 125/73 07/20/22 21:06 O2 Sat by Pulse Oximetry 97 07/20/22 21:06 Pain Scale Pain Intensity 1 - Physical Exam General Appearance: no apparent distress Eye Exam: PERRL/EOMI, eyes nml inspection Ears, Nose, Throat Exam: normal ENT inspection, TMs normal, pharynx normal, moist mucous membranes Neck Exam: normal inspection, non-tender, supple, full range of motion, No meningismus, No mass, No Brudzinski, No Kernig's, No carotid bruit Respiratory Exam: normal breath sounds, lungs clear, airway intact, No respiratory distress Cardiovascular Exam: regular rate/rhythm, normal heart sounds, normal peripheral pulses, capillary refill <2 sec, No murmur Gastrointestinal/Abdomen Exam: soft (Soft//mild diffuse TTP) Back Exam: normal inspection, normal range of motion, No CVA tenderness Extremity Exam: normal inspection, normal range of motion Neurologic Exam: alert, oriented x 3, cooperative, contracting specialist II-XII nml as tested, normal mood/affect, nml cerebellar function, nml station & gait, sensation nml, No motor deficits, No sensory deficit Skin Exam: normal color, warm, dry, No rash Lymphatic Exam: No adenopathy SpO2 Interpretation: normal SpO2: 97 O2 Delivery: Room Air - Course Nursing assessment & vital signs reviewed: Yes - Radiology Ultrasound Exam Other Ultrasound: Other (Nomal IUP per tech) Ordered Tests: Active Orders 24 hr Category Date Time Status OB >14 WKS 1st GESTATION [US] Stat Exams 07/20/22 21:32 Taken UA W/RFX CULTURE Stat Lab 07/20/22 21:42 Completed Lab/Rad Data: Laboratory Results 07/20/22 Range/Units 21:42 Urinalys Dipstick Clnc MAIN LAB Urine Color YELLOW (YELLOW) Urine Appearance SLIGHTLY CLOUDY (CLEAR) Urine pH 5.5 (5-6) Ur Specific [place] >=1.030 (1.005-1.025) POC Urine Protein Conf NEGATIVE (Negative) Urine Ketones NEGATIVE (NEGATIVE) Urine Nitrite NEGATIVE (NEGATIVE) Urine Bilirubin NEGATIVE (NEGATIVE) Urine Urobilinogen 0.2 (0-1) mg/dL Urine Leukocytes TRACE (NEGATIVE) Urine WBC (Auto) 6-10 (0-5) /HPF Urine RBC (Auto) 0-2 (0-2) /HPF U Epithel Cells (Auto) RARE (FEW) /HPF Urine Bacteria (Auto) RARE (NEGATIVE) /HPF Urine RBC NEGATIVE (0-5) Dennis/ul Urine Mucus (Auto) SLIGHT (NEGATIVE) /HPF Ur Culture Indicated? NO Urine Glucose NEGATIVE (NEGATIVE) mg/dL - Progress Progress: improved Progress Note: 07/20/22 22:[address] Kemp, ok to send home/Just wants urine cultured Counseled pt/family regarding: lab results, diagnosis, need for follow-up, rad results - Departure Departure Disposition: Home Clinical Impression: Intrauterine normal Condition: Stable Critical Care Time: No Referrals: CHRISTIAN DAHL, YURY [Primary Care Provider] - Follow up/PCP as directed Instructions: Severe Abdominal Pain, Adult (DC) Additional Instructions: Follow up with Dr. Kemp Return to ER as needed
[2022-07-20 22:04] LABS: Appearance SLIGHTLY CLOUDY (CLEAR); Bilirubin NEGATIVE (NEGATIVE); Glucose NEGATIVE (NEGATIVE); Ketones NEGATIVE (NEGATIVE); Ph 5.5 (5-6); Protein,Urine Dip NEGATIVE (Negative); RBC NEGATIVE Ery/ul (0-5); Specific Gravity >=1.030 (1.005-1.025); Urobilinogen 0.2 mg/dL (0-1)
[2022-07-20 22:05] VITALS: BP 116/70; PULSE 82
[2022-07-20 22:05] LABS: Dipstick done @ ? MAIN LAB; Nitrite NEGATIVE (NEGATIVE)
[2022-07-20 22:07] LABS: Bacteria RARE /HPF (NEGATIVE); Epithelial Cells RARE /HPF (FEW); Mucus SLIGHT /HPF (NEGATIVE); RBC 0-2 /HPF (0-2); Urine Cultured Indicated? NO
[2022-07-20 22:19] VITALS: O2SAT 97
--- NOTE | 2022-07-21 08:36 | XRAY ---
Indication: Pain. Two-dimensional Limited OB ultrasound performed. Comparison: May 12, 2022 There is again a single intrauterine . heart rate 161 BPM. Composite mean gestational age is 15 weeks 2 days. Anterior placenta without abruption/previa. Cervical length is 4 cm. Impression: Single viable intrauterine measuring 15 weeks 2 days. Expected date confinement is January 09, 2023. Nothing acute. Comment: Preliminary report was given.
== END 2022-07-20 22:30 | disposition home or self-care (01) ==
LOC: ED 20:58
DX: Z34.82 Encounter for supervision of other normal pregnancy, second trimester (principal); R10.84 Generalized abdominal pain; Z72.0 Tobacco use; Z28.310 Unvaccinated for COVID-19
CPT/HCPCS: 76805; 81015; 99283

== ENCOUNTER 2022-09-06 10:19 | Emergency (ER) | payer MEDICAID, OTHER ==
[2022-09-06 10:48] LABS: Absolute Neutrophil Ct (ANC) 5.46 x10^3/uL (1.4-6.9); Basophil (Absolute #) 0.01 x10^3/uL (0-0.4); Eosinophil % 0.6 % (0.00-5.0); Eosinophil (Absolute #) 0.04 x10^3/uL (0-0.5); Lymphocyte (Absolute #) 1.05 x10^3/uL (1.0-4.6); Lymphocytes % 14.7 % (24.0-44.0); Mean Cell Volume 95.1 fL (78-100); Mean Corpuscular Hemoglobin 31.7 pg (26-32); Mean Corpuscular Hgb Concent. 33.3 g/dL (32-36); Monocyte (Absolute #) 0.54 x10^3/uL (0.0-1.3); Monocytes % 7.6 % (0.0-12.0); Neutrophil % 76.3 % (36.0-66.0); Platelet Count 180 x10^3/uL (150-450); Red Blood Count 3.47 x10^6/uL (4.1-5.4); Red Cell Distribution Width 13.3 % (11.5-14.0); White Blood Count 7.2 x10^3/uL (4.0-10.5)
[2022-09-06 10:50] LABS: Appearance CLEAR (CLEAR); Bilirubin NEGATIVE (NEGATIVE); Glucose NEGATIVE (NEGATIVE); Ketones NEGATIVE (NEGATIVE); Protein,Urine Dip NEGATIVE (Negative); RBC NEGATIVE Ery/ul (0-5)
[2022-09-06 10:51] LABS: Dipstick done @ ? MAIN LAB; Nitrite NEGATIVE (NEGATIVE); Urobilinogen 0.2 mg/dL (0-1)
[2022-09-06 10:53] LABS: Mucus SLIGHT /HPF (NEGATIVE)
--- NOTE | 2022-09-06 10:56 | ERPHSYRPT ---
- History of Present Illness Time Seen by Provider: 09/06/22 10:30 Source: patient Exam Limitations: no limitations Patient Subjective Stated Complaint: SOB Triage Nursing Assessment: Patient ambulated back to ED and transferred self to bed. Patient A+O x3. Patient's skin pink, warm and dry. Patient currently 21 weeks and complains of SOB that started last night. Patient states she was reading her son a book last night and started getting SOB. Patient states this am her HR was 110 at rest. Patient denies pain or discomfort. Lungs clear a/p luis. Physician History: Patient is a 32-year-old female currently 21 weeks G4, P3 presents to our ED for evaluation of shortness of breath. Patient states she checked her heart rate she was tachycardic at home. No chest pain. No history of the same. Shortness of breath occurs with exertion and at breath. No associated nausea or vomiting. No fever. No diaphoresis. Symptoms are mild to moderate in intensity. No specific worsening improving factors. Patient denies any issues regarding her . No vaginal pain or pelvic pain. No vaginal discharge. Patient shortness of breath is mild to moderate in intensity. She voices no other complaints or concerns at this time. Portions of this note were created with voice recognition technology. There may be grammatical, spelling, punctuation or sound alike errors Timing/Duration: yesterday Severity: moderate Modifying Factors: Improves With: nothing Associated Symptoms: denies symptoms Allergies/Adverse Reactions: No Known Drug Allergies Allergy (Verified 09/06/22 10:20) Home Medications: Vit37/Iron/Folic Acid [Prenata Chewable Tablet] 1 each PO DAILY 05/12/22 [History] Iron/C/B12/B6/E/FA/If/Senna Lf [Iro-Plex Liquid] 15 mg PO DAILY 07/20/22 [History] Hx Tetanus, Diphtheria Vaccination/Date Given: Yes Hx Influenza Vaccination/Date Given: No Hx Pneumococcal Vaccination/Date Given: No Immunizations Up to Date: Yes Travel Risk - International Travel Have you traveled outside of the country in past 3 weeks: No - Coronavirus Screening Are you exhibiting any of the following symptoms?: No Close contact with a COVID-19 positive Pt in past 14-21 Days: No - Vaccine Status Have you recieved a Covid-19 vaccination: No - Review of Systems Constitutional: No Symptoms, No Fever, No Chills Eyes: No Symptoms Ears, Nose, & Throat: No Symptoms Respiratory: No Symptoms, No Cough, No Dyspnea Cardiac: No Symptoms, No Chest Pain, No Edema, No Syncope Abdominal/Gastrointestinal: No Symptoms, No Abdominal Pain, No Nausea, No Vomiting, No Diarrhea Genitourinary Symptoms: No Symptoms, No Dysuria Musculoskeletal: No Symptoms, No Back Pain, No Neck Pain Skin: No Symptoms, No Rash Neurological: No Symptoms, No Dizziness, No Focal Weakness, No Sensory Changes Psychological: No Symptoms Endocrine: No Symptoms Hematologic/Lymphatic: No Symptoms Immunological/Allergic: No Symptoms All Other Systems: Reviewed and Negative - Past Medical History Pertinent Past Medical History: Yes Neurological History: No Pertinent History ENT History: No Pertinent History Cardiac History: No Pertinent History Respiratory History: No Pertinent History Endocrine Medical History: No Pertinent History Musculoskeletal History: No Pertinent History GI Medical History: No Pertinent History History: No Pertinent History Psycho-Social History: No Pertinent History Female Reproductive Disorders: Other Other Medical History: MONO. ruptured cyst on ovary - Past Surgical History Past Surgical History: No Neuro Surgical History: No Pertinent History Cardiac: No Pertinent History Respiratory: No Pertinent History Gastrointestinal: No Pertinent History Genitourinary: No Pertinent History Musculoskeletal: No Pertinent History Female Surgical History: No Pertinent History - Social History Smoking Status: Former smoker Exposure to second hand smoke: No Drug Use: none Patient Lives Alone: No Significant Family History: no pertinent family hx - Female History Hx Last Menstrual Period: March Hx Now: Yes Expected Date of Delivery: 01/15/23 - Nursing Vital Signs Nursing Vital Signs: Initial Vital Signs Temperature 97.9 F 09/06/22 10:24 Pulse Rate 88 09/06/22 10:24 Respiratory Rate 18 09/06/22 10:24 Blood Pressure 114/78 09/06/22 10:24 O2 Sat by Pulse Oximetry 96 09/06/22 10:24 Pain Scale Pain Intensity 0 - Physical Exam General Appearance: no apparent distress, alert Eye Exam: PERRL/EOMI, eyes nml inspection Ears, Nose, Throat Exam: normal ENT inspection, TMs normal, pharynx normal, moist mucous membranes Neck Exam: normal inspection, non-tender, supple, full range of motion Respiratory Exam: normal breath sounds, lungs clear, airway intact, No chest tenderness, No respiratory distress Cardiovascular Exam: regular rate/rhythm, normal heart sounds, normal peripheral pulses Gastrointestinal/Abdomen Exam: soft, normal bowel sounds, other (Gravid abdomen nontender. Overlying soft tissue intact. heart tones are 150s to 160s), No tenderness, No mass Back Exam: normal inspection, normal range of motion, No CVA tenderness, No vertebral tenderness Extremity Exam: normal inspection, normal range of motion, pelvis stable Neurologic Exam: alert, oriented x 3, cooperative, normal mood/affect, nml cerebellar function, nml station & gait, sensation nml, No motor deficits Skin Exam: normal color, warm, dry, No rash Lymphatic Exam: No adenopathy SpO2 Interpretation: normal SpO2: 95 O2 Delivery: Room Air - Course Nursing assessment & vital signs reviewed: No EKG Interpreted by Me: RATE, Sinus Rhythm, NORMAL AXIS, NORMAL INTERVALS - Radiology Exams Chest X-ray Interpretation: Teleradiologist Report (Negative chest x-ray) - CT Exams Chest CT Interpretation: Tele-radiologist Report (No PE. Negative CTA chest.) - Radiology Ultrasound Exam Venous Lower Extremity Ultrasound: tele radiology report (Negative bilateral lower extremity venous Doppler. No DVT.) Ordered Tests: Active Orders 24 hr Category Date Time Status [employer] STAT Care 09/06/22 10:29 Active EKG-ER Only STAT Care 09/06/22 10:28 Active IV Insertion STAT Care 09/06/22 10:28 Active Pulse Oximetry (ED) STAT Care 09/06/22 10:28 Active CHEST 1 VIEW (PORTABLE) Stat Exams 09/06/22 10:29 Completed CHEST WITH CONTRAST [CT] Stat Exams 09/06/22 11:53 Completed VENOUS BILATERAL EXTREMITY [US] Stat Exams 09/06/22 10:36 Completed CBC W DIFF Stat Lab 09/06/22 10:40 Completed CMP Stat Lab 09/06/22 10:40 Completed D-DIMER QUANTITATIVE Stat Lab 09/06/22 10:40 Completed TROPONIN Q4H Lab 09/06/22 10:40 Completed TROPONIN Q4H Lab 09/06/22 14:30 Ordered TROPONIN Q4H Lab 09/06/22 18:30 Ordered UA W/RFX CULTURE Stat Lab 09/06/22 10:40 Completed Medication Summary Discontinued Medications Generic Name Dose Route Start Last Admin Trade Name Freq PRN Reason Stop Dose Admin Albuterol Sulfate 2.5 mg 09/06/22 13:14 Albuterol Sulfate 2.5 Mg/3 Ml Neb IH 09/06/22 13:15 STAT ONE Lab/Rad Data: Laboratory Result Diagrams 09/06/22 10:40 09/06/22 10:40 Laboratory Results 09/06/22 09/06/22 09/06/22 Range/Units 10:40 10:40 10:40 WBC (4.0-10.5) x10^3/uL RBC (4.1-5.4) x10^6/uL Hgb (12.0-16.0) g/dL Hct (35-47) % MCV (78-100) fL MCH (26-32) pg MCHC (32-36) g/dL RDW (11.5-14.0) % Plt Count (150-450) x10^3/uL MPV (7.5-11.0) fL Gran % (36.0-66.0) % Immature Gran % (Auto) (0.00-0.4) % Nucleat RBC Rel Count (0.00-0.1) % Eos # (Auto) (0-0.5) x10^3/uL Immature Gran # (Auto) (0.00-0.03) x10^3u/L Absolute Lymphs (auto) (1.0-4.6) x10^3/uL Absolute Monos (auto) (0.0-1.3) x10^3/uL Absolute Nucleated RBC (0.00-0.01) x10^3u/L Lymphocytes % (24.0-44.0) % Monocytes % (0.0-12.0) % Eosinophils % (0.00-5.0) % Basophils % (0.0-0.4) % Absolute Granulocytes (1.4-6.9) x10^3/uL Basophils # (0-0.4) x10^3/uL D-Dimer (0.0-0.50) mg/L Sodium (137-145) mmol/L Potassium (3.5-5.1) mmol/L Chloride (98-107) mmol/L Carbon Dioxide (22-30) mmol/L Anion Gap (5-15) MEQ/L BUN (7-17) mg/dL Creatinine (0.52-1.04) mg/dL Estimated GFR ML/MIN Glucose (74-106) mg/dL Calcium (8.4-10.2) mg/dL Total Bilirubin (0.2-1.3) mg/dL AST (14-36) U/L ALT (0-35) U/L Alkaline Phosphatase (38-126) U/L Troponin I < 0.012 (0.000-0.034) ng/mL Serum Total Protein (6.3-8.2) g/dL Albumin (3.5-5.0) g/dL Urinalys Dipstick Clnc MAIN LAB Urine Color YELLOW (YELLOW) Urine Appearance CLEAR (CLEAR) Urine pH 6.0 (5-6) Ur Specific [place] 1.020 (1.005-1.025) POC Urine Protein Conf NEGATIVE (Negative) Urine Ketones NEGATIVE (NEGATIVE) Urine Nitrite NEGATIVE (NEGATIVE) Urine Bilirubin NEGATIVE (NEGATIVE) Urine Urobilinogen 0.2 (0-1) mg/dL Urine Leukocytes NEGATIVE (NEGATIVE) Urine WBC (Auto) NONE (0-5) /HPF Urine RBC (Auto) NONE (0-2) /HPF U Epithel Cells (Auto) NONE (FEW) /HPF Urine Bacteria (Auto) NONE (NEGATIVE) /HPF Urine RBC NEGATIVE (0-5) Dennis/ul Urine Mucus (Auto) SLIGHT A (NEGATIVE) /HPF Ur Culture Indicated? NO Urine Glucose NEGATIVE (NEGATIVE) mg/dL Influenza Type A Ag NEGATIVE (NEGATIVE) Influenza Type B Ag NEGATIVE (NEGATIVE) RSV (PCR) NEGATIVE (Negative) SARS-CoV-2 (PCR) NEGATIVE (NEGATIVE) 09/06/22 09/06/22 09/06/22 Range/Units 10:40 10:40 10:40 WBC 7.2 (4.0-10.5) x10^3/uL RBC 3.47 L (4.1-5.4) x10^6/uL Hgb 11.0 L (12.0-16.0) g/dL Hct 33.0 L (35-47) % MCV 95.1 (78-100) fL MCH 31.7 (26-32) pg MCHC 33.3 (32-36) g/dL RDW 13.3 (11.5-14.0) % Plt Count 180 (150-450) x10^3/uL MPV 11.0 (7.5-11.0) fL Gran % 76.3 H (36.0-66.0) % Immature Gran % (Auto) 0.7 H (0.00-0.4) % Nucleat RBC Rel Count 0.0 (0.00-0.1) % Eos # (Auto) 0.04 (0-0.5) x10^3/uL Immature Gran # (Auto) 0.05 H (0.00-0.03) x10^3u/L Absolute Lymphs (auto) 1.05 (1.0-4.6) x10^3/uL Absolute Monos (auto) 0.54 (0.0-1.3) x10^3/uL Absolute Nucleated RBC 0.00 (0.00-0.01) x10^3u/L Lymphocytes % 14.7 L (24.0-44.0) % Monocytes % 7.6 (0.0-12.0) % Eosinophils % 0.6 (0.00-5.0) % Basophils % 0.1 (0.0-0.4) % Absolute Granulocytes 5.46 (1.4-6.9) x10^3/uL Basophils # 0.01 (0-0.4) x10^3/uL D-Dimer 0.86 H* (0.0-0.50) mg/L Sodium 133 L (137-145) mmol/L Potassium 4.3 (3.5-5.1) mmol/L Chloride 105 (98-107) mmol/L Carbon Dioxide 21 L (22-30) mmol/L Anion Gap 11.0 (5-15) MEQ/L BUN 6 L (7-17) mg/dL Creatinine 0.44 L (0.52-1.04) mg/dL Estimated GFR > 60.0 ML/MIN Glucose 69 L (74-106) mg/dL Calcium 8.7 (8.4-10.2) mg/dL Total Bilirubin 0.40 (0.2-1.3) mg/dL AST 17 (14-36) U/L ALT 11 (0-35) U/L Alkaline Phosphatase 67 (38-126) U/L Troponin I (0.000-0.034) ng/mL Serum Total Protein 6.6 (6.3-8.2) g/dL Albumin 3.6 (3.5-5.0) g/dL Urinalys Dipstick Clnc Urine Color (YELLOW) Urine Appearance (CLEAR) Urine pH (5-6) Ur Specific [place] (1.005-1.025) POC Urine Protein Conf (Negative) Urine Ketones (NEGATIVE) Urine Nitrite (NEGATIVE) Urine Bilirubin (NEGATIVE) Urine Urobilinogen (0-1) mg/dL Urine Leukocytes (NEGATIVE) Urine WBC (Auto) (0-5) /HPF Urine RBC (Auto) (0-2) /HPF U Epithel Cells (Auto) (FEW) /HPF Urine Bacteria (Auto) (NEGATIVE) /HPF Urine RBC (0-5) Dennis/ul Urine Mucus (Auto) (NEGATIVE) /HPF Ur Culture Indicated? Urine Glucose (NEGATIVE) mg/dL Influenza Type A Ag (NEGATIVE) Influenza Type B Ag (NEGATIVE) RSV (PCR) (Negative) SARS-CoV-2 (PCR) (NEGATIVE) - Progress Progress: improved Progress Note: 09/06/22 10:55 heart tones 150-160s 09/06/22 13:36 Patient reassessed. She is well. Vitals stable. Chest x-ray negative. Bilateral lower extremity venous ultrasounds negative for DVT. CT chest negative. No PE. Test was prompted by positive D-dimer. Case discussed with While he prior to CT chest. He agreed with the need for CTA chest. No indication for further work-up at this time. Will discharge home. Patient received a trial of albuterol nebulizer treatment. This improves her symptoms. Discussed with : Maren Will see patient in: hospital (observation) Counseled pt/family regarding: lab results, diagnosis, need for follow-up, rad results - Departure Departure Disposition: Home Clinical Impression: Shortness of breath Condition: Stable Critical Care Time: No Referrals: CHRISTIAN DAHL, [employer] OPERATOR [Primary Care Provider] - Follow up/PCP as directed Additional Instructions: Discharge/Care Plan JASSTASPOBUZZ CHERELLE was seen on 09/06/22 in the Emergency Room. The patient was counseled regarding Diagnosis,Lab results, Imaging studies, need for follow up and when to return to the Emergency Room. Prescriptions given: Discharge Note I have spoken with the patient and/or caregivers. I have explained the patient's condition, diagnosis and treatment plan based on the information available to me at this time. I have answered the patient's and/or caregiver's questions and addressed any concerns. The patient and/or caregivers have as good understanding of the patient's diagnosis, condition and treatment plan as can be expected at this point. The vital signs have been stable. The patient's condition is stable and appropriate for discharge from the emergency department. The patient will pursue further outpatient evaluation with the primary care physician or other designated or consulting physician as outlined in the discharge instructions. The patient and/or caregivers are agreeable to this plan of care and follow-up instructions have been explained in detail. The patient and/or caregivers have received these instruction. The patient/and or caregivers are aware that any significant change in condition or worsening of symptoms should prompt an immediate return to this or the closest emergency department or call 911. Prescriptions: Albuterol 8 gm Mdi Hfa [Ventolin Hfa MDI] 8 gm IH Q4H #1
[2022-09-06 10:58] LABS: Urine Cultured Indicated? NO
--- NOTE | 2022-09-06 11:00 | XRAY ---
Indication: Short of breath. 21 weeks . Comparison: October 12, 2022 Portable chest again demonstrates normal heart, lungs, and bony thorax.
[2022-09-06 11:04] LABS: ALBUMIN 3.6 g/dL (3.5-5.0); ALKALINE PHOSPHATASE 67 U/L (38-126); BLOOD UREA NITROGEN 6 mg/dL (7-17); CHLORIDE 105 mmol/L (98-107); Calcium 8.7 mg/dL (8.4-10.2); Carbon Dioxide 21 mmol/L (22-30); Creatinine 1 0.44 mg/dL (0.52-1.04); EST GLOMERULAR FILTRATION RATE > 60.0 ML/MIN; Glucose 69 mg/dL (74-106); Potassium 4.3 mmol/L (3.5-5.1); SGOT/AST 17 U/L (14-36); SGPT/ALT 11 U/L (0-35); SODIUM 133 mmol/L (137-145); Total Protein 6.6 g/dL (6.3-8.2)
[2022-09-06 11:24] LABS: INFLUENZA A NEGATIVE (NEGATIVE); INFLUENZA B NEGATIVE (NEGATIVE); RESPIRATORY SYNCTIAL VIRUS NEGATIVE (Negative); SARS-CoV-2 Xpert Express NEGATIVE (NEGATIVE)
--- NOTE | 2022-09-06 11:37 | XRAY ---
Indication: Short of breath. 21 weeks . DVT. Two-dimensional sonogram and color Doppler imaging of the major venous vessels of the left and right leg performed. Comparison: None No thrombus seen in the examined deep venous vessels of the left and right leg including greater saphenous vein. Veins demonstrate normal compressibility. Venous waveforms are normal with and without augmentation. Impression: Left and right legs negative for DVT.
--- NOTE | 2022-09-06 12:53 | XRAY ---
Indication: Short of breath. Pulmonary embolus. 21 weeks . Multiple contiguous images obtained through the chest using 80cc Isovue 370 contrast and PE protocol. Comparison: None Good opacification of the pulmonary arteries to include the lobar and segmental branches. No pulmonary embolus. Heart is not enlarged. Aorta is normal in course and caliber. No pathologic mediastinal/hilar lymphadenopathy. Lungs demonstrates minimal bilateral dependent atelectasis. No suspicious pulmonary mass/nodule, infiltrate, effusion, or pneumothorax. Bony thorax is intact. Limited upper abdomen unremarkable. Impression: Normal CT PE chest with contrast exam.
[2022-09-06 13:37] VITALS: BP 106/65
[2022-09-06] MEDS ORDERED: PROVENTIL 2.5 MG/3 ML NEB IH ONE (13:48)
[2022-09-06] MEDS: PROVENTIL 2.5 MG/3 ML NEB IH ONE (13:52)
[2022-09-06 15:20] VITALS: PULSE 100; O2SAT 96
== END 2022-09-06 14:03 | disposition home or self-care (01) ==
LOC: ED 10:19
DX: R06.02 Shortness of breath (principal); R00.0 Tachycardia, unspecified; Z33.1 Pregnant state, incidental; Z28.310 Unvaccinated for COVID-19
CPT/HCPCS: 0241U; 36000; 36415; 71045; 71260; 80053; 81015; 84484; 85025; 85379; 93005; 93041; 93970; 94640; 94760; 99284; J7609; A9270-GY

== ENCOUNTER 2022-11-05 11:52 | Emergency (ER) | payer OTHER ==
[2022-11-05] MEDS ORDERED: Sodium Chloride 0.9% 1000 ML 1,000 ML IV SCH (12:15)
[2022-11-05] MEDS ORDERED: HYDROCODONE-ACETAMIN 2.5-108/5 ML SOLUTION PO STA (12:16)
[2022-11-05 12:17] VITALS: PULSE 94
[2022-11-05 12:35] LABS: Absolute Neutrophil Ct (ANC) 4.45 x10^3/uL (1.4-6.9); Basophil (Absolute #) 0.02 x10^3/uL (0-0.4); Eosinophil % 1.1 % (0.00-5.0); Eosinophil (Absolute #) 0.07 x10^3/uL (0-0.5); Hematocrit 32.5 % (35-47); Hemoglobin 10.6 g/dL (12.0-16.0); Lymphocyte (Absolute #) 1.45 x10^3/uL (1.0-4.6); Lymphocytes % 22.6 % (24.0-44.0); Mean Cell Volume 90.8 fL (78-100); Mean Corpuscular Hemoglobin 29.6 pg (26-32); Mean Corpuscular Hgb Concent. 32.6 g/dL (32-36); Mean Platelet Volume 10.7 fL (7.5-11.0); Monocyte (Absolute #) 0.41 x10^3/uL (0.0-1.3); Monocytes % 6.4 % (0.0-12.0); Neutrophil % 69.3 % (36.0-66.0); Platelet Count 192 x10^3/uL (150-450); Red Blood Count 3.58 x10^6/uL (4.1-5.4); Red Cell Distribution Width 13.2 % (11.5-14.0); White Blood Count 6.4 x10^3/uL (4.0-10.5)
[2022-11-05 12:38] LABS: Appearance Clear (Clear); Bilirubin Negative (Negative); Blood Negative (Negative); Glucose Negative (Negative); Ketones Negative (Negative); Leukocyte Esterase Small (Negative); Nitrite Negative (Negative); Protein,Urine Dip Negative (Negative); Specific Gravity <=1.005 (1.005-1.030); Urobilinogen 0.2 mg/dL (0.2)
[2022-11-05] MEDS ORDERED: Sodium Chloride 0.9% 1000 ML 1,000 ML ONE (12:39)
[2022-11-05] MEDS ORDERED: HYDROCODONE-ACETAMIN 2.5-108/5 ML SOLUTION ONE (12:39)
[2022-11-05 12:50] LABS: ALBUMIN 3.6 g/dL (3.5-5.0); ALKALINE PHOSPHATASE 108 U/L (38-126); ANION GAP 10.7 MEQ/L (5-15); BLOOD UREA NITROGEN 4 mg/dL (7-17); CHLORIDE 107 mmol/L (98-107); Calcium 8.5 mg/dL (8.4-10.2); Carbon Dioxide 21 mmol/L (22-30); Creatinine 1 0.38 mg/dL (0.52-1.04); EST GLOMERULAR FILTRATION RATE > 60.0 ML/MIN; Glucose 82 mg/dL (74-106); SGOT/AST 21 U/L (14-36); SGPT/ALT 11 U/L (0-35); SODIUM 134 mmol/L (137-145); Total Protein 7.1 g/dL (6.3-8.2)
[2022-11-05 12:51] LABS: Bacteria None Seen /HPF (None Seen); Epithelial Cells None Seen /HPF (None Seen); RBC 0-2 /HPF (0-5); WBC 0-2 /HPF (0-5)
[2022-11-05 12:52] LABS: ADD URINE CULTURE? NO (NO)
--- NOTE | 2022-11-05 14:05 | ERPHSYRPT ---
- History of Present Illness Time Seen by Provider: 11/05/22 12:12 Source: patient Exam Limitations: no limitations Patient Subjective Stated Complaint: Pt c/o of cough that is causing her chest to hurt and her head also hurts Triage Nursing Assessment: Pt was brought to the ER by her boyfriend, vitals wnl, rates pain in her chest and head as 5/10, continuous cough, can't sleep due to the coughing, causing chest to hurt, dry cough with no mucus production, denies N&V but ends up choking after coughing so much, pulses normal, skin n/w/d, afebrile Physician History: 32 years old 4 para 3 at 31 weeks gestation presented in the ER with chief complaint of worsening cough for the last 10 days. Patient has been dealing with COVID-19 and cough is nonproductive, without any significant aggravating or relieving factors. Because of repeated coughing having generalized chest soreness. No fever or chills currently. No shortness of breath. No pelvic/abdominal cramping/vaginal bleeding or discharge. m ovements as usual. Patient reports because of coughing she is unable to get comfortable and has hardly 2 hours of continual sleeping last 4 days. Timing/Duration: day(s) (10), gradual onset, worse Cough Quality/Degree: moderate, severe, dry cough Possible Cause: illness exposure Modifying Factors: Worsens With: coughing Associated Symptoms: chest pain/soreness, cough, muscle aches, sore throat, No shortness of breath, No wheezing Allergies/Adverse Reactions: No Known Drug Allergies Allergy (Verified 09/06/22 10:20) Hx Tetanus, Diphtheria Vaccination/Date Given: Yes Hx Influenza Vaccination/Date Given: No Hx Pneumococcal Vaccination/Date Given: No Travel Risk - International Travel Have you traveled outside of the country in past 3 weeks: No - Coronavirus Screening Are you exhibiting any of the following symptoms?: Yes Symptoms: Cough: New Onset, Shortness of Breath, Loss of Taste or Smell, Headaches/Body Aches/Fatigue - Vaccine Status Have you recieved a Covid-19 vaccination: No - Review of Systems Constitutional: Fatigue Eyes: No Symptoms Ears, Nose, & Throat: Throat Pain Respiratory: Cough Cardiac: No Symptoms Abdominal/Gastrointestinal: No Symptoms Genitourinary Symptoms: Musculoskeletal: Myalgias Skin: No Symptoms Neurological: No Symptoms Psychological: No Symptoms Endocrine: No Symptoms Hematologic/Lymphatic: No Symptoms - Past Medical History Pertinent Past Medical History: Yes Neurological History: No Pertinent History ENT History: No Pertinent History Cardiac History: No Pertinent History Respiratory History: No Pertinent History Endocrine Medical History: No Pertinent History Musculoskeletal History: No Pertinent History GI Medical History: No Pertinent History History: No Pertinent History Psycho-Social History: No Pertinent History Female Reproductive Disorders: Other Other Medical History: MONO. ruptured cyst on ovary - Past Surgical History Past Surgical History: No Neuro Surgical History: No Pertinent History Cardiac: No Pertinent History Respiratory: No Pertinent History Gastrointestinal: No Pertinent History Genitourinary: No Pertinent History Musculoskeletal: No Pertinent History Female Surgical History: No Pertinent History - Social History Smoking Status: Former smoker Exposure to second hand smoke: No Drug Use: none Patient Lives Alone: No Significant Family History: no pertinent family hx - Female History Hx Now: Yes Gestational Age: 29.6 - Nursing Vital Signs Nursing Vital Signs: Initial Vital Signs Temperature 97.0 F 11/05/22 11:53 Pulse Rate 94 H 11/05/22 11:53 Blood Pressure 129/82 11/05/22 11:53 O2 Sat by Pulse Oximetry 95 11/05/22 11:53 Pain Scale Pain Intensity 5 - Physical Exam General Appearance: no apparent distress, alert Eye Exam: PERRL/EOMI, eyes nml inspection Ears, Nose, Throat Exam: moist mucous membranes, pharyngeal erythema Neck Exam: normal inspection, non-tender, supple, full range of motion Respiratory Exam: normal breath sounds, lungs clear Cardiovascular Exam: regular rate/rhythm, normal heart sounds Gastrointestinal/Abdomen Exam: soft, No tenderness Back Exam: normal inspection, normal range of motion Extremity Exam: normal inspection, normal range of motion Neurologic Exam: alert, oriented x 3, cooperative Skin Exam: normal color SpO2 Interpretation: normal SpO2: 95 O2 Delivery: Room Air Ordered Tests: Active Orders 24 hr Category Date Time Status IV Insertion STAT Care 11/05/22 12:15 Active CHEST 1 VIEW (PORTABLE) Stat Exams 11/05/22 12:15 Taken CBC W DIFF Stat Lab 11/05/22 12:37 Completed CMP Stat Lab 11/05/22 12:37 Completed Lactic Acid Stat Lab 11/05/22 12:37 Completed UA W/RFX UR CULTURE Stat Lab 11/05/22 12:23 Completed Medication Summary Generic Name Dose Route Start Last Admin Trade Name Warren PRN Reason Stop Dose Admin Sodium Chloride 1,000 mls @ 100 mls/hr 11/05/22 12:15 11/05/22 12:40 Sodium Chloride 0.9% 1000 Ml IV 12/05/22 12:14 100 mls/hr .Q10H DAVONTE Administration Discontinued Medications Generic Name Dose Route Start Last Admin Trade Name Warren PRN Reason Stop Dose Admin Hydrocodone Bitart/Acetaminophen 10 ml 11/05/22 12:16 11/05/22 12:40 Hydrocodone/Acetaminophen 5 Ml Udcup PO 11/05/22 12:17 10 ml STAT STA Administration Hydrocodone Bitart/Acetaminophen Confirm 11/05/22 12:39 Hydrocodone/Acetaminophen 5 Ml Udcup Administered 11/05/22 12:40 Dose 10 ml .ROUTE .[employer] Lab/Rad Data: Laboratory Result Diagrams 11/05/22 12:37 11/05/22 12:37 Laboratory Results 11/05/22 11/05/22 11/05/22 Range/Units 12:37 12:37 12:37 WBC 6.4 (4.0-10.5) x10^3/uL RBC 3.58 L (4.1-5.4) x10^6/uL Hgb 10.6 L (12.0-16.0) g/dL Hct 32.5 L (35-47) % MCV 90.8 (78-100) fL MCH 29.6 (26-32) pg MCHC 32.6 (32-36) g/dL RDW 13.2 (11.5-14.0) % Plt Count 192 (150-450) x10^3/uL MPV 10.7 (7.5-11.0) fL Gran % 69.3 H (36.0-66.0) % Immature Gran % (Auto) 0.3 (0.00-0.4) % Nucleat RBC Rel Count 0.0 (0.00-0.1) % Eos # (Auto) 0.07 (0-0.5) x10^3/uL Immature Gran # (Auto) 0.02 (0.00-0.03) x10^3u/L Absolute Lymphs (auto) 1.45 (1.0-4.6) x10^3/uL Absolute Monos (auto) 0.41 (0.0-1.3) x10^3/uL Absolute Nucleated RBC 0.00 (0.00-0.01) x10^3u/L Lymphocytes % 22.6 L (24.0-44.0) % Monocytes % 6.4 (0.0-12.0) % Eosinophils % 1.1 (0.00-5.0) % Basophils % 0.3 (0.0-0.4) % Absolute Granulocytes 4.45 (1.4-6.9) x10^3/uL Basophils # 0.02 (0-0.4) x10^3/uL Sodium 134 L (137-145) mmol/L Potassium 4.0 (3.5-5.1) mmol/L Chloride 107 (98-107) mmol/L Carbon Dioxide 21 L (22-30) mmol/L Anion Gap 10.7 (5-15) MEQ/L BUN 4 L (7-17) mg/dL Creatinine 0.38 L (0.52-1.04) mg/dL Estimated GFR > 60.0 ML/MIN Glucose 82 (74-106) mg/dL Lactic Acid 0.5 (0.4-2.0) Calcium 8.5 (8.4-10.2) mg/dL Total Bilirubin 0.40 (0.2-1.3) mg/dL AST 21 (14-36) U/L ALT 11 (0-35) U/L Alkaline Phosphatase 108 (38-126) U/L Serum Total Protein 7.1 (6.3-8.2) g/dL Albumin 3.6 (3.5-5.0) g/dL Urine Color (Yellow) Urine Appearance (Clear) Urine pH (4.6-8.0) Ur Specific [place] (1.005-1.030) Urine Protein (Negative) Urine Ketones (Negative) Urine Blood (Negative) Urine Nitrite (Negative) Urine Bilirubin (Negative) Urine Urobilinogen (0.2) mg/dL Ur Leukocyte Esterase (Negative) Urine Microscopic RBC (0-5) /HPF Urine Microscopic WBC (0-5) /HPF Ur Epithelial Cells (None Seen) /HPF Urine Bacteria (None Seen) /HPF Urine Culture Reflexed (NO) Urine Glucose (Negative) mg/dL 11/05/22 Range/Units 12:23 WBC (4.0-10.5) x10^3/uL RBC (4.1-5.4) x10^6/uL Hgb (12.0-16.0) g/dL Hct (35-47) % MCV (78-100) fL MCH (26-32) pg MCHC (32-36) g/dL RDW (11.5-14.0) % Plt Count (150-450) x10^3/uL MPV (7.5-11.0) fL Gran % (36.0-66.0) % Immature Gran % (Auto) (0.00-0.4) % Nucleat RBC Rel Count (0.00-0.1) % Eos # (Auto) (0-0.5) x10^3/uL Immature Gran # (Auto) (0.00-0.03) x10^3u/L Absolute Lymphs (auto) (1.0-4.6) x10^3/uL Absolute Monos (auto) (0.0-1.3) x10^3/uL Absolute Nucleated RBC (0.00-0.01) x10^3u/L Lymphocytes % (24.0-44.0) % Monocytes % (0.0-12.0) % Eosinophils % (0.00-5.0) % Basophils % (0.0-0.4) % Absolute Granulocytes (1.4-6.9) x10^3/uL Basophils # (0-0.4) x10^3/uL Sodium (137-145) mmol/L Potassium (3.5-5.1) mmol/L Chloride (98-107) mmol/L Carbon Dioxide (22-30) mmol/L Anion Gap (5-15) MEQ/L BUN (7-17) mg/dL Creatinine (0.52-1.04) mg/dL Estimated GFR ML/MIN Glucose (74-106) mg/dL Lactic Acid (0.4-2.0) Calcium (8.4-10.2) mg/dL Total Bilirubin (0.2-1.3) mg/dL AST (14-36) U/L ALT (0-35) U/L Alkaline Phosphatase (38-126) U/L Serum Total Protein (6.3-8.2) g/dL Albumin (3.5-5.0) g/dL Urine Color Yellow (Yellow) Urine Appearance Clear (Clear) Urine pH 7.0 (4.6-8.0) Ur Specific [place] <=1.005 (1.005-1.030) Urine Protein Negative (Negative) Urine Ketones Negative (Negative) Urine Blood Negative (Negative) Urine Nitrite Negative (Negative) Urine Bilirubin Negative (Negative) Urine Urobilinogen 0.2 (0.2) mg/dL Ur Leukocyte Esterase Small A (Negative) Urine Microscopic RBC 0-2 (0-5) /HPF Urine Microscopic WBC 0-2 (0-5) /HPF Ur Epithelial Cells None Seen (None Seen) /HPF Urine Bacteria None Seen (None Seen) /HPF Urine Culture Reflexed NO (NO) Urine Glucose Negative (Negative) mg/dL - Progress Progress: improved Air Movement: good Progress Note: 11/05/22 14:02 32 years old 5 para 3 31-week gestation currently dealing with COVID- related cough for last 10 days with progressive worsening. Cough is nonproductive and because of repeated coughing having generalized chest soreness. Patient is coughing so bad that she can hardly get good sleep last few days. Patient is afebrile currently. Normal pelvic cramping, vaginal bleeding discharge and has good movements. I have discussed with patient about liquid hydrocodone risk and benefits and she is okay with taking it and on reevaluation her cough is much improved. Lungs are pretty clear otherwise. Chest x-ray with no acute infiltrative process reviewed by me, official report is pending. Lab work fairly unremarkable. Given fluids as patient was feeling dehydrated. I have discussed with her primary OB Dr. Kemp and patient would be discharged home on liquid [place]'s to take as needed along with Z-González and outpatient follow-up. Discussed signs symptoms of worsening needing return to ER which patient seems understanding. I have discussed with patient and in detail about risk and benefits of liquid [place]'s and they are okay with prescription to go home and will take for symptomatic relief as needed. Patient has a heart tone in 150s and normal abdominal/pelvic cramping/pain or vaginal bleed/concern for .. Blood Culture(s) Obtained: No Antibiotics given: Yes Counseled pt/family regarding: lab results, diagnosis, rad results - Departure Departure Disposition: Home Clinical Impression: Cough with exposure to COVID-19 virus Condition: Stable Critical Care Time: No Referrals: CHRISTIAN DAHL NP [Primary Care Provider] - Follow up/PCP as directed (1-2 days for reevaluation) Instructions: Cough, Adult (DC) Additional Instructions: Take cough medications only as needed. Keep yourself well-hydrated. Follow-up with primary care for reevaluation. Keep appointment with your OB. Return to ER for worsening cough or having difficulty breathing, pelvic cramping, vaginal bleeding discharge, decreased movements etc. Take Tylenol as needed for aches and pains. Prescriptions: Hydrocodone/Acetaminophen [Hydrocodone-Acetamn 7.5-325/15] 118 ml PO Q6H PRN 3 Days #60 ml MDD 40ml PRN Reason: Cough Azithromycin 250 mg [Zithromax 250 MG TABLET] 250 mg PO ZPACK #6 tablet
[2022-11-05 15:02] VITALS: BP 119/79
[2022-11-05 15:04] VITALS: O2SAT 95
--- NOTE | 2022-11-05 18:04 | XRAY ---
Indication: Cough. Positive Covid 19. 31 weeks . Comparison: September 06, 2022 Portable chest again demonstrates normal heart, lungs, and bony thorax.
== END 2022-11-05 15:11 | disposition home or self-care (01) ==
LOC: ED 11:52
DX: R05.9 Cough, unspecified (principal); Z20.822 Contact with and (suspected) exposure to COVID-19; Z33.1 Pregnant state, incidental; Z28.310 Unvaccinated for COVID-19; Z79.891 Long term (current) use of opiate analgesic
CPT/HCPCS: 36000; 36415; 71045; 80053; 81001; 83605; 85025; 96360; 96361; 99284; A9270-GY

== ENCOUNTER 2022-11-23 11:21 | Observation (INO) | payer OTHER ==
[2022-11-23 11:56] LABS: Absolute Neutrophil Ct (ANC) 3.63 x10^3/uL (1.4-6.9); BASOPHIL % 0.2 % (0.0-0.4); Basophil (Absolute #) 0.01 x10^3/uL (0-0.4); Eosinophil % 0.8 % (0.00-5.0); Eosinophil (Absolute #) 0.04 x10^3/uL (0-0.5); Hematocrit 29.2 % (35-47); Hemoglobin 9.5 g/dL (12.0-16.0); IMMATURE GRAN # 0.01 x10^3u/L (0.00-0.03); IMMATURE GRAN % 0.2 % (0.00-0.4); Lymphocyte (Absolute #) 1.14 x10^3/uL (1.0-4.6); Lymphocytes % 21.5 % (24.0-44.0); Mean Corpuscular Hemoglobin 29.6 pg (26-32); Mean Corpuscular Hgb Concent. 32.5 g/dL (32-36); Mean Platelet Volume 10.6 fL (7.5-11.0); Monocyte (Absolute #) 0.48 x10^3/uL (0.0-1.3); Neutrophil % 68.3 % (36.0-66.0); Platelet Count 167 x10^3/uL (150-450); Red Blood Count 3.21 x10^6/uL (4.1-5.4); Red Cell Distribution Width 13.9 % (11.5-14.0); White Blood Count 5.3 x10^3/uL (4.0-10.5)
--- NOTE | 2022-11-23 12:34 | XRAY ---
Indication: Status post fall. well-being. Evaluate placenta, DIANA, and cervical length. Limited OB ultrasound demonstrates single viable intrauterine in cephalic presentation with heart rate 140 BPM. Anterior placenta without abruption/previa. Cervical length 5.2 cm. Four-quadrant DIANA is 15.2 cm.
[2022-11-23 13:08] VITALS: BP 110/70; PULSE 102; O2SAT 95
== END 2022-11-23 15:35 | disposition home or self-care (01) ==
LOC: MED SURG 11:21
PROVIDERS: ADMIT Obstetrics & Gynecology; ATTEND Obstetrics & Gynecology
DX: Z34.83 Encounter for supervision of other normal pregnancy, third trimester (principal); Z3A.32 32 weeks gestation of pregnancy
CPT/HCPCS: 36415; 76815; 80307; 85025; G0378

== ENCOUNTER 2023-01-06 11:20 | Observation (INO) | payer OTHER ==
[2023-01-06 11:59] VITALS: BP 114/73; PULSE 108; O2SAT 95
== END 2023-01-06 12:39 | disposition home or self-care (01) ==
LOC: OB 11:20
PROVIDERS: ADMIT Obstetrics & Gynecology; ATTEND Obstetrics & Gynecology
DX: Z34.83 Encounter for supervision of other normal pregnancy, third trimester (principal); Z3A.38 38 weeks gestation of pregnancy
CPT/HCPCS: 84112; G0378

== ENCOUNTER 2023-01-08 00:06 | Inpatient (IN) | payer OTHER ==
[2023-01-08] MEDS: CYTOTEC PO SCH ×4 (17:45→23:45)
[2023-01-08] MEDS ORDERED: STADOL 2 MG IV PRN (18:00)
[2023-01-08] MEDS ORDERED: Zofran 4 MG/2 ML VIAL IV PRN (18:00)
[2023-01-08] MEDS ORDERED: TYLENOL EXTRA STRENGTH 500 MG PO PRN (18:00)
[2023-01-08 18:23] LABS: Absolute Neutrophil Ct (ANC) 4.94 x10^3/uL (1.4-6.9); BASOPHIL % 0.3 % (0.0-0.4); Basophil (Absolute #) 0.02 x10^3/uL (0-0.4); Eosinophil % 0.8 % (0.00-5.0); Eosinophil (Absolute #) 0.06 x10^3/uL (0-0.5); Hematocrit 30.9 % (35-47); Hemoglobin 9.7 g/dL (12.0-16.0); IMMATURE GRAN # 0.02 x10^3u/L (0.00-0.03); IMMATURE GRAN % 0.3 % (0.00-0.4); Lymphocyte (Absolute #) 1.62 x10^3/uL (1.0-4.6); Lymphocytes % 22.7 % (24.0-44.0); Mean Cell Volume 90.1 fL (78-100); Mean Corpuscular Hemoglobin 28.3 pg (26-32); Mean Corpuscular Hgb Concent. 31.4 g/dL (32-36); Mean Platelet Volume 11.5 fL (7.5-11.0); Monocyte (Absolute #) 0.48 x10^3/uL (0.0-1.3); Monocytes % 6.7 % (0.0-12.0); Neutrophil % 69.2 % (36.0-66.0); Platelet Count 177 x10^3/uL (150-450); Red Blood Count 3.43 x10^6/uL (4.1-5.4); Red Cell Distribution Width 13.9 % (11.5-14.0); White Blood Count 7.1 x10^3/uL (4.0-10.5)
[2023-01-08 18:30] LABS: Appearance Clear (Clear); Bacteria None Seen /HPF (None Seen); Bilirubin Negative (Negative); Blood Negative (Negative); Epithelial Cells None Seen /HPF (None Seen); Glucose, Urine Negative (Negative); Hyaline Casts NONE SEEN /LPF (0-2); Ketones Negative (Negative); Leukocyte Esterase Negative (Negative); Nitrite Negative (Negative); Protein,Urine Dip Negative (Negative); RBC 0-2 /HPF (0-5); Specific Gravity 1.015 (1.005-1.030); Urobilinogen 0.2 mg/dL (0.2); WBC 0-2 /HPF (0-5)
[2023-01-08 18:32] LABS: ADD URINE CULTURE? NO (NO)
[2023-01-08 18:41] LABS: Amphetamine,Urine NEGATIVE (NEGATIVE); Barbiturate,Urine NEGATIVE (NEGATIVE); Benzodiazepine,Urine NEGATIVE (NEGATIVE); Cocaine,Urine NEGATIVE (NEGATIVE); Methadone,Urine NEGATIVE (NEGATIVE); Opiate,Urine NEGATIVE (NEGATIVE); PCP,Urine NEGATIVE (NEGATIVE); THC,Urine NEGATIVE (NEGATIVE)
[2023-01-08 19:25] LABS: ABO TYPING A; Antibody Screen NEGATIVE (NEGATIVE); RH TYPING POSITIVE
[2023-01-08] MEDS ORDERED: OMNIPEN 2 GM*** 2 G in Sodium Chloride 100ML MINI-BAG PLUS 100 ML IV ONE (20:00)
[2023-01-08] MEDS ORDERED: Lactated Ringers 1,000 ML IV ONE (23:51)
[2023-01-09] MEDS ORDERED: OMNIPEN 1 GM*** 1 GM in Sodium Chloride 100ML MINI-BAG PLUS 100 ML IV SCH ×2
[2023-01-09] MEDS: CYTOTEC PO SCH ×2 (01:45→03:45)
[2023-01-09] MEDS: Lactated Ringers 1,000 ML IV SCH ×2 (01:46→22:34)
[2023-01-09] MEDS ORDERED: OMNIPEN 2 GM*** 2 G in Sodium Chloride 100ML MINI-BAG PLUS 100 ML IV ONE (02:00)
[2023-01-09] MEDS ORDERED: PITOCIN 30 UNITS/ LR 500 ML 30 UNITS/500 ML PLAST..BAG IV SCH ×2 (06:00→08:00)
[2023-01-09] MEDS ORDERED: BRETHINE 1 MG/ML SQ PRN (06:00)
[2023-01-09] MEDS ORDERED: Lactated Ringers 1,000 ML IV SCH (06:00)
[2023-01-09] MEDS: OMNIPEN 1 GM*** 1 GM in Sodium Chloride 100ML MINI-BAG PLUS 100 ML IV SCH ×3 (06:01→14:52)
[2023-01-09] MEDS ORDERED: Lactated Ringers 1,000 ML IV ONE (07:00)
[2023-01-09] MEDS ORDERED: Ephedrine Sulfate 50 MG/ML IV PRN (08:00)
[2023-01-09] MEDS ORDERED: TUCKS TP PRN (08:00)
[2023-01-09] MEDS ORDERED: Dermoplast Spray TP PRN (08:00)
[2023-01-09] MEDS ORDERED: Mylicon 80MG PO PRN (08:00)
[2023-01-09] MEDS ORDERED: FENTANYL 2 MCG-BUPIV 0.125%-NS 250 ML Epidur 250 ML EPIDURAL SCH (08:00)
[2023-01-09] MEDS ORDERED: Dulcolax 10 MG SUPP PR PRN (08:00)
[2023-01-09] MEDS ORDERED: XYLOCAINE 1% HCL 20 ML MDV IJ PRN (08:00)
[2023-01-09] MEDS ORDERED: Anucort-HC SUPPOSITORY PR PRN (08:00)
[2023-01-09] MEDS ORDERED: LANSINOH 40 GM TOP PRN (08:00)
[2023-01-09] MEDS ORDERED: CORTISONE 1% CREAM TP PRN (08:00)
[2023-01-09] MEDS ORDERED: Sodium Chloride 0.9% 1000 ML 1,000 ML ONE (09:20)
[2023-01-09] MEDS ORDERED: Sodium Chloride 0.9% 1000 ML 1,000 ML IV SCH (13:45)
[2023-01-09] MEDS: MOTRIN 400 MG PO PRN (20:24)
[2023-01-09] MEDS: Docusate Sodium 100 MG PO SCH (21:19)
[2023-01-09] MEDS: NORCO 5/325 MG PO PRN (22:01)
[2023-01-10] MEDS: NORCO 5/325 MG PO PRN (03:01)
[2023-01-10 06:45] LABS: Absolute Neutrophil Ct (ANC) 4.65 x10^3/uL (1.4-6.9); BASOPHIL % 0.4 % (0.0-0.4); Basophil (Absolute #) 0.03 x10^3/uL (0-0.4); Eosinophil % 0.6 % (0.00-5.0); Eosinophil (Absolute #) 0.04 x10^3/uL (0-0.5); Hematocrit 27.5 % (35-47); Hemoglobin 8.9 g/dL (12.0-16.0); IMMATURE GRAN # 0.02 x10^3u/L (0.00-0.03); IMMATURE GRAN % 0.3 % (0.00-0.4); Lymphocyte (Absolute #) 1.96 x10^3/uL (1.0-4.6); Lymphocytes % 27.2 % (24.0-44.0); Mean Corpuscular Hemoglobin 28.8 pg (26-32); Mean Corpuscular Hgb Concent. 32.4 g/dL (32-36); Mean Platelet Volume 11.7 fL (7.5-11.0); Monocyte (Absolute #) 0.51 x10^3/uL (0.0-1.3); Monocytes % 7.1 % (0.0-12.0); Neutrophil % 64.4 % (36.0-66.0); Platelet Count 142 x10^3/uL (150-450); Red Blood Count 3.09 x10^6/uL (4.1-5.4); Red Cell Distribution Width 14.3 % (11.5-14.0); White Blood Count 7.2 x10^3/uL (4.0-10.5)
[2023-01-10] MEDS ORDERED: NORCO 5/325 MG PO PRN (08:22)
[2023-01-10] MEDS: MOTRIN 400 MG PO PRN ×2 (08:41→18:22)
[2023-01-10] MEDS ORDERED: Adacel Vial IM ONE (10:00)
[2023-01-10] MEDS ORDERED: FERREX 150 PO SCH (10:00)
--- NOTE | 2023-01-10 10:13 | PCM.NOTE ---
Date and Time: 01/10/23 1012 Subjective Assessment: ppd 1 sp pt resting in bed and does co shoulder discomfort intermittently vss afebrile abd; soft uterus; firm lochia;mild hgb; 8.9 a/p sp ppd 1 hgb stable will anticipate discharge tomorrow should fu in office in 3 wks OBJECTIVE DATA Vital Signs: Vital Signs - 24 hr Temp Pulse Resp BP BP Pulse Ox 01/10/23 08:30 97.6 F 95 H 15 97/55 95 01/10/23 03:00 98.5 F 90 16 109/58 94 L 01/10/23 00:00 76 16 129/72 93 L 01/09/23 21:00 77 118/72 01/09/23 20:00 98.9 F 95 H 18 128/80 96 01/09/23 19:55 98.9 F 95 H 18 128/80 96 01/09/23 19:14 75 121/75 01/09/23 18:49 98.6 F 75 18 121/75 01/09/23 18:15 98.7 F 75 16 115/79 01/09/23 18:00 98.6 F 85 18 127/65 01/09/23 17:45 98.6 F 96 H 18 115/63 98 01/09/23 17:00 81 18 124/74 01/09/23 16:45 81 18 124/74 01/09/23 16:30 81 18 124/74 01/09/23 16:15 81 18 124/74 01/09/23 16:00 98.7 F 91 H 18 124/74 116/70 01/09/23 15:45 81 18 124/74 01/09/23 15:30 81 18 124/74 01/09/23 15:15 81 18 124/74 01/09/23 15:00 81 18 124/74 01/09/23 14:45 81 18 124/74 01/09/23 14:30 81 18 124/74 01/09/23 14:15 81 18 124/74 01/09/23 14:00 81 18 124/74 01/09/23 13:45 81 18 124/74 01/09/23 13:30 81 18 124/74 01/09/23 13:15 81 18 124/74 01/09/23 13:00 81 18 124/74 01/09/23 12:45 85 18 114/78 01/09/23 12:30 90 18 115/73 01/09/23 12:15 90 18 122/69 01/09/23 12:00 80 18 118/76 118/76 01/09/23 11:45 71 18 122/75 01/09/23 11:30 71 18 124/81 01/09/23 11:15 80 18 152/83 01/09/23 10:50 80 18 152/83 01/09/23 10:35 75 18 112/75 01/09/23 10:20 71 18 117/72 Pain Assessment - Last Documented Pain Intensity [Bilateral 5 Lower Anterior/Posterior] Pain Intensity 6 Pain Scale Used 0-10 Pain Scale Intake and Output: Intake & Output 01/07/23 01/08/23 01/09/23 01/10/23 10:59 11:59 11:59 11:59 Intake Total 5187 1225 Output Total 150 1000 Balance 5037 225 Weight 81.193 kg Lab Results: Lab Results-Last 24 Hours 01/10/23 Range/Units 06:39 WBC 7.2 (4.0-10.5) x10^3/uL RBC 3.09 L (4.1-5.4) x10^6/uL Hgb 8.9 L (12.0-16.0) g/dL Hct 27.5 L (35-47) % MCV 89.0 (78-100) fL MCH 28.8 (26-32) pg MCHC 32.4 (32-36) g/dL RDW 14.3 H (11.5-14.0) % Plt Count 142 L (150-450) x10^3/uL MPV 11.7 H (7.5-11.0) fL Gran % 64.4 (36.0-66.0) % Immature Gran % (Auto) 0.3 (0.00-0.4) % Nucleat RBC Rel Count 0.0 (0.00-0.1) % Eos # (Auto) 0.04 (0-0.5) x10^3/uL Immature Gran # (Auto) 0.02 (0.00-0.03) x10^3u/L Absolute Lymphs (auto) 1.96 (1.0-4.6) x10^3/uL Absolute Monos (auto) 0.51 (0.0-1.3) x10^3/uL Absolute Nucleated RBC 0.00 (0.00-0.01) x10^3u/L Lymphocytes % 27.2 (24.0-44.0) % Monocytes % 7.1 (0.0-12.0) % Eosinophils % 0.6 (0.00-5.0) % Basophils % 0.4 (0.0-0.4) % Absolute Granulocytes 4.65 (1.4-6.9) x10^3/uL Basophils # 0.03 (0-0.4) x10^3/uL Assessment/Plan (1) Vaginal delivery Current Visit: Yes Status: Acute Code(s): O80 - ENCOUNTER FOR FULL-TERM UNCOMPLICATED DELIVERY
--- NOTE | 2023-01-10 10:16 | PCM.DS ---
Discharge Summary Date of Admission: 01/09/23 09:00 Admitting Physician: GIL ARSHAD DO Consults: Consults on Case 01/09/23 08:00 Notify Anesthesia Provider PRN 01/09/23 14:00 Notify Physician ROUTINE Primary Care Provider: CHRISTIAN DAHL Allergies Allergies No Known Drug Allergies Allergy (Verified 01/08/23 20:07) Hospital Summary - Hospital Course Hospital Course: pt admitted on january 08 for cytotec induction and subsequently had pitocin on january 09 with epidural and subsequently delivered live baby boy via without complication. during period did well however was noted having spinal headache and was managed by anesthesia. pt at this time stable for discharge on january 11 and was advised to fu in office in 3 wks. all questions answered to her satisfaction. pt with stable hgb at 8.9 - Vitals & Intake/Output Vital Signs: Vital Signs Temperature 97.6 F 01/10/23 08:30 Pulse Rate 95 H 01/10/23 08:30 Respiratory Rate 15 01/10/23 08:30 Blood Pressure 97/55 01/10/23 08:30 O2 Sat by Pulse Oximetry 95 01/10/23 08:30 Intake & Output: Intake & Output 01/07/23 01/08/23 01/09/23 01/10/23 10:59 11:59 11:59 11:59 Intake Total 5187 1225 Output Total 150 1000 Balance 5037 225 Weight 81.193 kg - Lab Result Diagrams: 01/10/23 06:39 Lab Results-Last 24 Hrs: Lab Results-Last 24 Hours 01/10/23 Range/Units 06:39 WBC 7.2 (4.0-10.5) x10^3/uL RBC 3.09 L (4.1-5.4) x10^6/uL Hgb 8.9 L (12.0-16.0) g/dL Hct 27.5 L (35-47) % MCV 89.0 (78-100) fL MCH 28.8 (26-32) pg MCHC 32.4 (32-36) g/dL RDW 14.3 H (11.5-14.0) % Plt Count 142 L (150-450) x10^3/uL MPV 11.7 H (7.5-11.0) fL Gran % 64.4 (36.0-66.0) % Immature Gran % (Auto) 0.3 (0.00-0.4) % Nucleat RBC Rel Count 0.0 (0.00-0.1) % Eos # (Auto) 0.04 (0-0.5) x10^3/uL Immature Gran # (Auto) 0.02 (0.00-0.03) x10^3u/L Absolute Lymphs (auto) 1.96 (1.0-4.6) x10^3/uL Absolute Monos (auto) 0.51 (0.0-1.3) x10^3/uL Absolute Nucleated RBC 0.00 (0.00-0.01) x10^3u/L Lymphocytes % 27.2 (24.0-44.0) % Monocytes % 7.1 (0.0-12.0) % Eosinophils % 0.6 (0.00-5.0) % Basophils % 0.4 (0.0-0.4) % Absolute Granulocytes 4.65 (1.4-6.9) x10^3/uL Basophils # 0.03 (0-0.4) x10^3/uL Micro Results-Entire Visit: Microbiology 01/09/23 Unknown Urine Culture - Preliminary Urine, Indwelling Catheter NO GROWTH TO DATE Final Diagnosis/Problem List - Final Discharge Diagnosis/Problem (1) Vaginal delivery Current Visit: Yes Status: Acute Code(s): O80 - ENCOUNTER FOR FULL-TERM UNCOMPLICATED DELIVERY - Discharge Disposition: Home, Self-Care Condition: Stable Prescriptions: No Action 148/Iron/Folate 6/Dha [Tendera-Ob Softgel] 1 each PO DAILY Follow up with: CHRISTIAN DAHL NP [Primary Care Provider] - GIL ARSHAD DO [ACTIVE STAFF] - 3 weeks
[2023-01-10 10:40] LABS: HBsAg Screen Negative (Negative)
[2023-01-10] MEDS ORDERED: BLOXIVERZ IV ONE (10:44)
[2023-01-10] MEDS ORDERED: ATROPINE SULFATE 1MG ONE (10:44)
[2023-01-10] MEDS: Docusate Sodium 100 MG PO SCH (11:14)
[2023-01-10] MEDS ORDERED: Oxy-IR 5 MG PO PRN (12:16)
[2023-01-10] MEDS ORDERED: [UNRECOGNIZED DRUG - OTHER] IV SCH ×2 (14:15→18:30)
[2023-01-10] MEDS ORDERED: ATROPINE SULFATE IV SCH ×2 (14:15→18:30)
[2023-01-10] MEDS ORDERED: BLOXIVERZ IV SCH ×2 (14:15→18:30)
[2023-01-11] MEDS: Docusate Sodium 100 MG PO SCH (06:01)
--- NOTE | 2023-01-11 08:02 | PCM.NOTE ---
Date and Time: 01/11/23 08 Subjective Assessment: ppd 2 pt resting in bed and doing much better today. pt had spinal headache however now doing very well vss afebrile abd; soft uterus; firm' lochia; mild a/p sp ppd 2 dc home today should fu office 3 wks OBJECTIVE DATA Vital Signs: Vital Signs - 24 hr Temp Pulse Resp BP Pulse Ox 01/11/23 03:00 98.3 F 72 16 118/71 96 01/10/23 21:00 98.3 F 72 16 118/71 96 01/10/23 15:00 97.9 F 94 H 16 120/76 95 01/10/23 13:00 97.8 F 75 17 124/81 96 01/10/23 08:30 97.6 F 95 H 15 97/55 95 Pain Assessment - Last Documented Pain Intensity [Bilateral 1 Upper] Pain Intensity [Bilateral 5 Lower Anterior/Posterior] Pain Intensity 0 Pain Scale Used 0-10 Pain Scale Intake and Output: Intake & Output 01/08/23 01/09/23 01/10/23 01/11/23 11:59 11:59 11:59 11:59 Intake Total 5187 1225 1200 Output Total 150 1000 3 Balance 5037 225 1197 Weight 81.193 kg Lab Results: Lab Results-Last 24 Hours 01/08/23 Range/Units 18:15 Hep Bs Antigen Negative (Negative) Assessment/Plan (1) Vaginal delivery Current Visit: Yes Status: Acute Code(s): O80 - ENCOUNTER FOR FULL-TERM UNCOMPLICATED DELIVERY (2) Spinal headache Current Visit: Yes Status: Acute Code(s): G97.1 - OTHER REACTION TO SPINAL AND LUMBAR PUNCTURE
[2023-01-11 08:39] VITALS: BP 114/56; PULSE 79; O2SAT 95
== END 2023-01-11 12:35 | disposition home or self-care (01) | DRG 807 ==
LOC: OB 09:00 → OBSVTOIN 01-09 09:00
PROVIDERS: ADMIT Obstetrics & Gynecology; ATTEND Obstetrics & Gynecology
PROC: 10E0XZZ Delivery of Products of Conception, External Approach (ICD-10-PCS; principal; 2023-01-09)
DX: O69.81X0 Labor and delivery complicated by cord around neck, without compression, not applicable or unspecified (principal); Z37.0 Single live birth; Z3A.39 39 weeks gestation of pregnancy; G97.1 Other reaction to spinal and lumbar puncture; Z20.828 Contact with and (suspected) exposure to other viral communicable diseases; Z86.16 Personal history of COVID-19
CPT/HCPCS: 36415; 59409; 80307; 81001; 85025; 86850; 86900; 86901; 87086; 87340; 90471; 90715; 99213; G0378; J0290; J0461; J0595; J2590; J2710; A9270-GY